=== PATIENT | male | born 1980 | race Caucasian/White ===

== ENCOUNTER 2021-09-26 15:24 | Outpatient (CLI) | payer BC, SELFPAY ==
--- NOTE | 2021-09-26 15:35 | USCV_ITS ---
Elie Haas Age: 40 Gender: M : 1980 Exam Date: 09/26/2021 15:37 Ordering Phys: Fidel Tesfaye MD Technologist: OFELIA Exam Location: [facility] – [place] Indication: BILATERAL EDEMA HISTORY: Lower extremity edema. PROCEDURES: Venous duplex imaging was performed in bilateral lower extremities. The following venous structures were evaluated: common femoral vein, profunda vein, proximal portion of the greater saphenous vein, superficial femoral vein, and the popliteal vein. In addition, the posterior tibial and peroneal trunk were evaluated. FINDINGS: Normal 2-D Doppler and augmentation and compressibility throughout the lower extremity venous structures. Additional imaging through the proximal calf veins also reveals no thrombus. Limited evaluation of the greater saphenous vein is patent with no thrombus.. CONCLUSIONS No evidence of right lower extremity DVT. No evidence of left lower extremity DVT. Konstantin Villasenor MD (Electronically Signed) Final Date: 26 September 2021 17:01 S
== END 2021-09-26 15:25 | disposition home or self-care (01) ==
LOC: RAD 15:27
PROVIDERS: Visit Provider Family Medicine
DX: E88.09 Other disorders of plasma-protein metabolism, not elsewhere classified (principal); E05.90 Thyrotoxicosis, unspecified without thyrotoxic crisis or storm; R60.0 Localized edema
CPT/HCPCS: 93970

== ENCOUNTER 2021-10-13 07:11 | Outpatient (CLI) | payer BC, SELFPAY ==
--- NOTE | 2021-10-13 07:17 | US_ITS ---
WS: [id number] ULTRASOUND ABDOMEN CLINICAL INFORMATION: HYPOALBUMINEMIA PLEASE INCLUDE BLADDER COMPARISON: None. FINDINGS: Liver Size: Enlarged Craniocaudal length: 17.4 cm. Echogenicity: Normal. Surface nodularity: None. Mass (size and location): None. Bile ducts Intrahepatic ducts: Normal. Common bile duct diameter: 0.4 cm. Gallbladder Contracted Gallstones: None. Gallbladder sludge: None. Gallbladder wall thickening: None. Pericholecystic fluid: None. Sonographic Becerra sign: Absent. Pancreas Normal as visualized. Right kidney: Normal. Hydronephrosis: None. Size: 11.8 cm x 5.5 cm x 5.8 cm Left kidney: Normal. Hydronephrosis: None. Size: 11.8 cm x 6.1 cm x 6.3 cm. Abdominal aorta and IVC Visualized portions are normal. Ascites: Present US/US abdomen complete* [id number] IMPRESSION: 1. Hepatomegaly. Trace perihepatic ascites 2. Gallbladder is contracted. 3. Normal common bile duct. 4. No hydronephrosis in either kidney. 5. Small volume pelvic ascites.
== END 2021-10-13 07:12 | disposition home or self-care (01) ==
LOC: RAD 07:12
PROVIDERS: PCP Family Medicine; Visit Provider Family Medicine
DX: E88.09 Other disorders of plasma-protein metabolism, not elsewhere classified (principal); E05.90 Thyrotoxicosis, unspecified without thyrotoxic crisis or storm; R60.0 Localized edema; R16.0 Hepatomegaly, not elsewhere classified
CPT/HCPCS: 76700

== ENCOUNTER 2022-02-15 15:41 | Outpatient (CLI) | payer BC, SELFPAY ==
--- NOTE | 2022-02-15 15:51 | XR_ITS ---
WS: [id number] XR chest 2V* [id number] REASON FOR EXAM: DYSPNEA, RIB PAIN RIGHT SIDED FINDINGS: Moderate tortuosity the thoracic aorta without aneurysmal dilatation. The heart size within normal limits. Extensive calcified granulomatous disease bilaterally. On the PA view there is a vaguely defined area of density in the periphery of the left midlung zone. This abnormality is difficult to identify in the lateral view but may be an area of density posterior to the hilar structures placing it within the upper portion of the left lower lobe. Mild to moderate scoliosis with moderate to severe degenerative spondylosis in the mid and lower thor acic spine. XR/XR chest 2V* [id number] IMPRESSION: Left lung mass as above. It would be appropriate to proceed to CT scan of the chest with intravenous con trast.
== END 2022-02-15 15:42 | disposition home or self-care (01) ==
PROVIDERS: PCP Family Medicine; Visit Provider Family Medicine
DX: R06.00 Dyspnea, unspecified (principal); R07.81 Pleurodynia; R91.8 Other nonspecific abnormal finding of lung field
CPT/HCPCS: 71046

== ENCOUNTER 2022-02-16 10:31 | Inpatient (IN) | payer BC, SELFPAY ==
[2022-02-16] VITALS (12 sets, daily range): BP systolic 107–114; BP diastolic 55–92; PULSE 81–108; RESP 14–36; TEMP 36.6; O2SAT 93–96; BMI 24.5
--- NOTE | 2022-02-16 10:46 | ECG_ITS ---
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 Measurements Intervals [place] Rate: 104 P: 50 CA: 127 QRS: -21 QRSD: 93 T: 34 QT: 318 QTc: 419 Interpretive Statements SINUS TACHYCARDIA LEFT ATRIAL ENLARGEMENT [-0.15mV P-WAVE IN V1/V2] BORDERLINE LEFT AXIS DEVIATION [QRS AXIS < -20] No previous ECG available for comparison Electronically Signed On 02-16-2022 22:41:48 CDT by Marco Antonio Salazar M.D. [id number]
--- NOTE | 2022-02-16 10:46 | XR_ITS ---
WS: [id number] XR chest 1V portable [id number] REASON FOR EXAM: chest pain FINDINGS: The patient is rotated to his left in comparison to the previous days examination and the area of the density previously seen in the periphery of the left lung appears somewhat less masslike. No other significant interval change is seen in the chest compared to the prior day. XR/XR chest 1V portable [id number] IMPRESSION: No interval change compared to the previous day. Density in the left chest stil l suspicious for neoplasm due to the focal nature. This would be an unusual pre sentation of a pneumonitis or pulmonary infarct. If inflammatory process is suspected follow-up chest in 7-8 days would be appro priate.
--- NOTE | 2022-02-16 11:01 | PC.PHAR ---
pts verified pts medications-pts states the pt hasnt started the augmentin 500-125mg yet rx filled 02/15/22 10d/s 1 tabs tid-pts states the lisinopril 10mg daily was dced rx filled 10/24/21 90d/s
[2022-02-16 11:16] LABS: Basophils # 0.1 10^3/uL (0.0-0.1); Basophils % 0.7 %; Eosinophils # 0.4 10^3/uL (0.0-0.8); Eosinophils % 3.4 %; Hematocrit 42.6 % (42.0-52.0); Hemoglobin 14.1 g/dL (11.7-16.6); Lymphocytes # 1.6 10^3/uL (0.8-4.8); Lymphocytes % 15.4 %; Mean Corpuscular HGB Conc 33.1 g/dL (30.0-36.0); Mean Corpuscular Hemoglobin 32.1 pg (28.0-34.0); Mean Platelet Volume 9.4 fL (7.4-10.4); Monocytes % 10.1 %; Neutrophils # 7.15 10^3/uL (1.8-7.7); Neutrophils % 69.8 %; Nucleated Red Blood Cells % 0 %; Platelet Count 314 10^3/cmm (130-400); Red Blood Count 4.39 10^6/uL (4.1-5.3); White Blood Count 10.2 10^3/uL (4.0-10.0)
[2022-02-16 11:46] LABS: Alanine Aminotransferase 8 U/L (0-41); Alkaline Phosphatase 79 IU/L (40-130); Anion Gap 13.4 (5-19); Aspartate Amino Transferase 18 U/L (0-40); Blood Urea Nitrogen 10 mg/dL (6-20); Calcium 8.2 mg/dL (8.5-10.5); Carbon Dioxide 24 mmol/L (22-29); Chloride 97 mmol/L (98-107); Creatinine Clr Calc Pharmacy 148.4115; Glomerular Filtration Rate 123.1 mL/min (90-130); Glucose 94 mg/dL (65-115); Osmolality Calculated 269 mOsm/kg (285-295); Potassium 4.4 mmol/L (3.5-5.1); Sodium 130 mmol/L (136-145); Total Bilirubin 0.2 mg/dL (0.15-1.2)
[2022-02-16 12:07] LABS: Troponin(5th) Baseline 8 ng/L (0-15)
--- NOTE | 2022-02-16 12:13 | ED_ITS ---
HPI - Chest Pain General: Chief Complaint: Chest Pain Stated Complaint: chest pain/SOB Time Seen by Provider: 02/16/22 10:46 Source: patient Mode of arrival: ambulatory Limitations: no limitations History of Present Illness: 41-year-old male presents emergency room complaining of right-sided chest pain. This began 5 days ago on the left side of the chest and migrated over to the right side of the chest it stays in that position now is worse when he takes a deep breath. Also worse with palpation an d change in position patient was repositioned to examine the abdomen but laying him flat he noticed worsening of the chest discomfort. He has not had any Fever or productive cough with that he does feel short of breath at times. No hemoptysis. He has had a little bit of loose stool recently. Denies any hematemesis coffee-ground emesis. MD complaint: chest pain Onset (ago): minute(s) Timing of current episode: constant Associated symptoms: Reports dyspnea; Deny abdominal pain, fever(s), nausea or vomiting Review of Systems Const: Denies: fever(s), chills, body aches, change in appetite, fatigue or malaise ENMT: Denies: throat pain, ear or mastoid pain, nasal discharge or nasal congestion Card: Reports: chest pain; Denies: edema, dyspnea on exertion or orthopnea Resp: Reports: dyspnea; Denies: productive cough or non-productive cough GI: Denies: abdominal pain, nausea, vomiting, hematemesis, coffee ground emesis, diarrhea, constipation, bloating, hematochezia or melena : Denies: flank pain, dysuria, urinary frequency or urinary urgency Skin/Breast: Denies: rash or pruritus PFSH ED PFSH: Medical History (Updated 02/16/22 @ 17:53 by Franky Salazar DO) Chronic kidney disease Hypertension Hyperthyroidism Social History (Updated 02/16/22 @ 17:52 by Franky Salazar DO) Smoking and tobacco status: never smoked Alcohol intake: never Physical Exam Const: COMMON NORMALS: no acute distress GENERAL APPEARANCE: cooperative and comfortable ORIENTATION/CONSCIOUSNESS: Yes awake, Yes oriented to person, Yes oriented to place and Yes oriented to time HENMT: COMMON NORMALS: normocephalic, atraumatic and hearing grossly normal bilaterally HEAD & SCALP: normocephalic and atraumatic Neck/C-Spine: COMMON NORMALS: no JVD Resp: COMMON NORMALS: normal respiratory effort, No retractions, No use of accessory muscles and clear to auscultation bilaterally AUSCULTATION: clear to auscultation bilaterally Cardio: COMMON NORMALS: no JVD, regular rate, regular rhythm and No murmurs present (Cardio) RATE: regular rate RHYTHM: regular rhythm GI: COMMON NORMALS: Soft to palpation and No hepatosplenomegaly present AUSCULTATION: Yes normoactive bowel sounds PALPATION: Yes Soft to palpation, No Tenderness to palpation present (GI), No Guarding due to palpation present (GI) and Yes No hepatosplenomegaly present Extremity: COMMON NORMALS: normal to inspection, capillary refill normal, no clubbing, cyanosis or edema, no calf tenderness and no pedal edema Neuro: SENSORIUM/ORIENTATION: Yes oriented to person, Yes oriented to place and Yes oriented to time Skin: COMMON NORMALS: no rashes or lesions noted GENERAL SKIN EXAM: no rashes or lesions noted Course Vital Signs: Vital signs: Vital Signs Temperature 98 F 02/16/22 10:41 Pulse Rate 98 02/16/22 17:36 Respiratory Rate 18 02/16/22 17:36 Blood Pressure 107/55 02/16/22 17:36 Pulse Oximetry 95 02/16/22 17:36 MDM - Chest Pain Medical Decision Making Large pulmonary emboli heavy burden of clot with right heart strain. Will admit started on heparin. Venous duplex lower extremities to evaluate for DVT. Medical Records I reviewed the patient's medical records. Lab Data I reviewed the patient's lab results. : 02/16/22 11:07 02/16/22 11:07 Radiology Impressions Chest X-Ray 02/16/22 10:46 IMPRESSION: No interval change compared to the previous day. Density in the left chest still suspicious for neoplasm due to the focal nature. This would be an unusual presentation of a pneumonitis or pulmonary infarct. If inflammatory process is suspected follow-up chest in 7-8 days would be appropriate. Chest CTA 02/16/22 12:33 IMPRESSION: 1. Extensive bilateral pulmonary embolus with evidence of RIGHT heart strain described above. 2. Wedge-shaped opacity LEFT upper lobe along the fissure suspicious for pulmonary infarct measuring 3.5 x 2.4 cm. This corresponds to the opacity seen on the prior radiograph. Recommend interval follow-up to ensure resolution. 3. Patchy atelectasis in the RIGHT middle lobe. 4. Normal caliber thoracic aorta. Notified Franky Salazar DO at 02/16/2022 1:35 PM. Laboratory Results WBC 10.2 10^3/uL (4.0-10.0) H 02/16/22 11:07 RBC 4.39 10^6/uL (4.1-5.3) 02/16/22 11:07 Hgb 14.1 g/dL (11.7-16.6) 02/16/22 11:07 Hct 42.6 % (42.0-52.0) 02/16/22 11:07 MCV 97.0 fl (80-94) H 02/16/22 11:07 MCH 32.1 pg (28.0-34.0) 02/16/22 11:07 MCHC 33.1 g/dL (30.0-36.0) 02/16/22 11:07 RDW 12.0 % (12.1-15.1) L 02/16/22 11:07 Plt Count 314 10^3/cmm (130-400) 02/16/22 11:07 MPV 9.4 fL (7.4-10.4) 02/16/22 11:07 Neut % (Auto) 69.8 % 02/16/22 11:07 Lymph % (Auto) 15.4 % 02/16/22 11:07 [place] % (Auto) 10.1 % 02/16/22 11:07 Eos % (Auto) 3.4 % 02/16/22 11:07 Baso % (Auto) 0.7 % 02/16/22 11:07 Neut # (Auto) 7.15 10^3/uL (1.8-7.7) 02/16/22 11:07 Lymph # (Auto) 1.6 10^3/uL (0.8-4.8) 02/16/22 11:07 [place] # (Auto) 1.0 10^3/uL (0.2-0.9) H 02/16/22 11:07 Eos # (Auto) 0.4 10^3/uL (0.0-0.8) 02/16/22 11:07 Baso # (Auto) 0.1 10^3/uL (0.0-0.1) 02/16/22 11:07 Nucleated RBC % (auto) 0 % 02/16/22 11:07 Nucleated RBCs # 0.0 /100WBC 02/16/22 11:07 Sodium 130 mmol/L (136-145) L 02/16/22 11:07 Potassium 4.4 mmol/L (3.5-5.1) 02/16/22 11:07 Chloride 97 mmol/L (98-107) L 02/16/22 11:07 Carbon Dioxide 24 mmol/L (22-29) 02/16/22 11:07 Anion Gap 13.4 (5-19) 02/16/22 11:07 BUN 10 mg/dL (6-20) 02/16/22 11:07 Creatinine 0.7 mg/dL (0.7-1.2) 02/16/22 11:07 GFR Calculation 123.1 mL/min (90-130) 02/16/22 11:07 Glucose 94 mg/dL (65-115) 02/16/22 11:07 Calculated Osmolality 269 mOsm/kg (285-295) L 02/16/22 11:07 Calcium 8.2 mg/dL (8.5-10.5) L 02/16/22 11:07 Total Bilirubin 0.2 mg/dL (0.15-1.2) 02/16/22 11:07 AST 18 U/L (0-40) 02/16/22 11:07 ALT 8 U/L (0-41) 02/16/22 11:07 Alkaline Phosphatase 79 IU/L (40-130) 02/16/22 11:07 Troponin T Baseline 8 ng/L (0-15) 02/16/22 11:07 Troponin T 120 Minute 6.24 ng/L (0-15) 02/16/22 13:31 Delta Troponin T -1.76 ABS# (0-10) L 02/16/22 13:31 Total Protein 5.0 g/dL (6.6-8.7) L 02/16/22 11:07 Albumin 2.0 g/dL (3.5-5.2) L 02/16/22 11:07 Globulin 3.0 g/dL (1.3-4.6) 02/16/22 11:07 Discharge Plan Discharge Patient Disposition: Admitted As Inpatient Admit Provider: Terry Alcantar Clinical Impression: Pulmonary emboli, Hyperthyroidism Condition: Stable Coding Level of Care Code ED 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
--- NOTE | 2022-02-16 12:33 | CT_ITS ---
WS: [id number] CTA OF THE CHEST WITH PULMONARY EMBOLISM PROTOCOL TECHNIQUE: High-resolution contrast enhanced CTA of the chest with coronal and sagittal reformatted i mages with pulmonary embolism protocol. MIP images are also reviewed. CLINICAL INFORMATION: Chest pain dyspnea tachycardia COMPARISON: None. DLP: 1110.[address] scans at [facility] use at least one of these dose optimization techniques: automated e xposure control; mA and/or kV adjustment per patient size (includes targeted exams where dose is matc hed to clinical indication); or iterative reconstruction. FINDINGS: Proximal main pulmonary arteries are normal. Extensive bilateral pulmonary embolus in the distal main pulmonary arteries extending into the segmental and subsegmental pulmonary arteries bilaterally. Red uced blood flow in the segmental and subsegmental pulmonary arteries bilaterally. Slight reflux into the hepatic veins with mild LEFT ventricular septal bowing consistent with RIGHT heart strain. Wedge- shaped opacity in the LEFT upper lobe along the fissure suspicious for pulmonary infarct. Subsegmental atelectasis in RIGHT middle lobe. Normal caliber thoracic aorta. No mediastinal or hilar lymphadenopathy. Adrenal glands are normal. Small esophageal hiatal hernia. Moderate thoracic kyphos is. Chronic anterior wedging mid thoracic spine with a few Schmorl's nodes. CT/CT angio chest PE protcl [id number] IMPRESSION: 1. Extensive bilateral pulmonary embolus with evidence of RIGHT heart strain d escribed above. 2. Wedge-shaped opacity LEFT upper lobe along the fissure suspicious for pulmo nary infarct measuring 3.5 x 2.4 cm. This corresponds to the opacity seen on th e prior radiograph. Recommend interval follow-up to ensure resolution. 3. Patchy atelectasis in the RIGHT middle lobe. 4. Normal caliber thoracic aorta. Notified Franky Salazar DO at 02/16/2022 1:35 PM.
--- NOTE | 2022-02-16 12:46 | ECG_ITS ---
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 Measurements Intervals [place] Rate: 79 P: 30 MD: 132 QRS: -11 QRSD: 86 T: 29 QT: 356 QTc: 410 Interpretive Statements SINUS RHYTHM POSSIBLE LEFT ATRIAL ENLARGEMENT [-0.1mV P-WAVE IN V1/V2] No previous ECG available for comparison Electronically Signed On 02-16-2022 16:06:04 CDT by Marco Antonio Salazar M.D. [id number]
[2022-02-16] MEDS: iohexol 350 mg/mL 100 mL Btl IV (13:23)
[2022-02-16 13:56] LABS: Troponin 5 2HR 6.24 ng/L (0-15)
--- NOTE | 2022-02-16 14:10 | USCV_ITS ---
Elie Haas Age: 41 Gender: M : 1980 Exam Date: 02/16/2022 14:41 Ordering Phys: Franky Salazar DO Technologist: OFELIA Exam Location: [facility] [place] Indication: PE LE Swelling HISTORY: Lower extremity swelling. Pt has renal disease causing blood to become very viscous per pt and . Pulmonary embolism. PROCEDURES: Venous duplex imaging was performed in bilateral lower extremities. The following venous structures were evaluated: common femoral vein, profunda vein, proximal portion of the greater saphenous vein, superficial femoral vein, and the popliteal vein. In addition, the posterior tibial and peroneal trunk were evaluated. FINDINGS: Very slow flow visualized. Normal 2-D Doppler and augmentation and compressibility throughout the lower extremity venous structures. Additional imaging through the proximal calf veins also reveals no thrombus. Limited evaluation of the greater saphenous vein is patent with no thrombus. CONCLUSIONS No DVT bilateral lower extremities. Dr. Florence Mcdaniel DO (Electronically Signed) Final Date: 16 February 2022 15:48 S
[2022-02-16 14:41] LABS: Troponin 5 2HR Delta -1.76 ABS# (0-10)
[2022-02-16] MEDS: morphine 4 mg/mL SDV 1 mL IM (15:38)
--- NOTE | 2022-02-16 15:56 | P.HP_ITS ---
Providers/Chief Complaint Primary Care Provider: Fidel Tesfaye MD Chief Complaint: chest pain/SOB History of Present Illness Elie Haas is a 41 year old male with past medical history of GN, currently no records available, see Dr. Khan as an outpatient, is on spironolactone and olmesartan, he also has past medical history of hyperthyroidism, was brought in with chief complaint of chest pain particularly with inspiration, located on the right side, started about 5 days back, and has progressively worsened since then, x-ray chest was done in the ER yesterday as outpatient: Which reports as following : on the PA view there is a vaguely defined area of density in the periphery of the left midlung zone.This abnormality is difficult to identify in the lateral view but may be an area of density posterior to the hilar structures placing it within the upper portion of the left lower lobe. It was suggestive of left lung mass. He came in today because his chest pain had progressively worsened. CTA chest done in the ER: Today showed : Extensive bilateral pulmonary embolus with evidence of RIGHT heart strain described above. Wedge-shaped opacity LEFT upper lobe along the fissure suspicious for pulmonary infarct measuring 3.5 x 2.4 cm. This corresponds to the opacity seen on the prior radiograph. Recommend interval follow-up to ensure resolution. Lower extremity Doppler vein: Is negative for DVT. Patient was started on heparin drip in the ER. As well as he received morphine for pain control. Pertinent labs: WBC : 10.2 , H&H:14/42 , PLT : 314 , serum sodium 137 potassium 4.4 BUN/ serum creatinine 10/0.7 , serum albumin 2 Troponin trend: 8,6, Review of Systems General: Reports: 10 or more systems reviewed and unremarkable except in HPI and below Const: Denies: fever(s), chills, body aches, change in appetite or diaphoresis Card: Reports: edema, swelling of feet/ankles, dyspnea on exertion and orthopnea; Denies: palpitations or leg pain with exertion Resp: Reports: dyspnea and pain on inspiration; Denies: productive cough or wheezing GI: Denies: abdominal pain, nausea, vomiting, diarrhea or constipation : Denies: flank pain or difficulty urinating Musc: Denies: back pain, extremity pain or extremity swelling Neuro: Denies: headache(s), difficulty walking or confusion Medications/Allergies Home Medications Medication Instructions Recorded Confirmed Last Taken Type amoxicillin 500 mg-potassium 1 tab PO TID 02/16/22 02/16/22 Unknown History clavulanate 125 mg tablet (Augmentin) atenolol 100 mg tablet 100 mg PO DAILY@02/16/22 02/16/22 02/15/22 History hydrocodone 5 mg-acetaminophen 325 1 tab PO Q4H PRN 02/16/22 02/16/22 02/16/22 09:00 History mg tablet methimazole 5 mg tablet 5 mg PO DAILY@02/16/22 02/16/22 02/15/22 History olmesartan 20 mg tablet 20 mg PO DAILY 02/16/22 02/16/22 02/16/22 09:00 History spironolactone 25 mg tablet 25 mg PO QAM 02/16/22 02/16/22 02/16/22 09:00 History Allergies Allergy/AdvReac Type Severity Reaction Status Date / Time No Known Allergies Allergy Verified 02/16/22 11:01 Vitals/I&O/Wt Last Vital Signs Temp 98 F 02/16/22 10:41 Pulse 108 H 02/16/22 10:41 Resp 18 02/16/22 15:38 BP 114/73 02/16/22 10:41 Pulse Ox 95 02/16/22 10:41 Weight last 48 hrs Weight 79.832 kg Physical Exam Const: COMMON NORMALS: patient oriented x3 HENMT: COMMON NORMALS: normocephalic and atraumatic HEAD & SCALP: nor mocephalic and atraumatic EXTERNAL EAR: Yes external ears normal Eye: GENERAL EYE: appearance normal, both eyes and all related structures Chest: CHEST: Yes Symmetrical chest wall rise Resp: COMMON NORMALS: No use of accessory muscles and clear to auscultation bilaterally EFFORT & INSPECTION: Yes symmetric chest movement AUSCULTATION: clear to auscultation bilaterally Cardio: COMMON NORMALS: regular rate, regular rhythm, S1 normal heart sound present, S2 normal heart sound present, No gallops present (Cardio), No murmurs present (Cardio), No rub (Cardio) and Peripheral pulses 2+ throughout RATE: regular rate RHYTHM: regular rhythm HEART SOUNDS: S1 normal heart sound present and S2 normal heart sound present PERIPHERAL PULSES: Peripheral pulses 2+ throughout GI: COMMON NORMALS: Normal to inspection, nondistended, normoactive bowel sounds present, Soft to palpation, non-tender, No hepatosplenomegaly present and no masses AUSCULTATION: Yes normoactive bowel sounds PALPATION: Yes Soft to palpation and Yes No hepatosplenomegaly present RECTAL EXAM: Yes deferred Extremity: COMMON NORMALS: no clubbing, cyanosis or edema and no pedal edema Neuro: COMMON NORMALS: patient oriented x3 Data : 02/16/22 11:07 02/16/22 11:07 A&P Assessment and plan (1) Pulmonary emboli: Status: Acute (2) Hyperthyroidism: Status: Acute Plan 41 year old male with past medical history of GN, currently no records available, see Dr. Khan as an outpatient, is on spironolactone and olmesartan, he also has past medical history of hyperthyroidism, was brought in with chief complaint of chest pain particularly with inspiration, located on the right side, started about 5 days back. Assessment: Acute pulmonary embolism: CTA chest done in the ER: Today showed : Extensive bilateral pulmonary embolus with evidence of RIGHT heart strain described above. Wedge-shaped opacity LEFT upper lobe along the fissure suspicious for pulmonary infarct measuring 3.5 x 2.4 cm. This corresponds to the opacity seen on the prior radiograph. Recommend interval follow-up to ensure resolution. Lower extremity Doppler vein: Is negative for DVT. 2D echo: Currently on heparin drip We will switch him to p.o. Eliquis or Xarelto on Given his underlying kidney disease he is at high risk for future thrombosis. Patient will need long-term anticoagulation At baseline he is extremely active person. Hyperthyroidism : Continue methimazole Hypovolemic hyponatremia: Continue normal saline at 75 cc Monitor BMP DVT prophylaxis: Not needed on heparin drip CODE STATUS: Full code Attestations Medical Necessity Statement*: Patient needs to be in the hospital for management of acute pulmonary embolism. Anticipated length of stay greater than 2 midnights Time Spent in Patient Care: Greater than 35 minutes (>than 50% of time spent in counselling and/or direct pt care on unit) . Coding Level of Care Code Acute Sole Cementer for [facility] Fwd Exam Comprehensive Diagnoses Pulmonary emboli I26.99 Hyperthyroidism E05.90
[2022-02-16] MEDS: sodium chloride 0.9% 1,000 ML 100 ML IV ×2 (16:26→20:02)
[2022-02-16] MEDS: heparin drip 25,000 UNIT/500 ML PREMIX 22.35 UNIT IV (16:30)
[2022-02-16] MEDS: heparin 5,000 unit/mL INJ 1 mL IV (16:32)
--- NOTE | 2022-02-16 16:46 | ECG_ITS ---
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 Measurements Intervals [place] Rate: 97 P: 60 DE: 119 QRS: -3 QRSD: 99 T: 39 QT: 325 QTc: 413 Interpretive Statements SINUS RHYTHM WITH SHORT DE INTERVAL POSSIBLE LEFT ATRIAL ENLARGEMENT [-0.1mV P-WAVE IN V1/V2] Compared to ECG 02/16/2022 12:46:20 Short DE interval now present Electronically Signed On 02-16-2022 22:44:42 CDT by Marco Antonio Salazar M.D. [id number]
[2022-02-16] MEDS: morphine 4 mg/mL SDV 1 mL IVP ×2 (17:15→20:05)
[2022-02-16 17:18] LABS: Troponin 5 6HR 6.08 ng/L (0-15)
[2022-02-16 17:42] LABS: Troponin 5 6HR Delta -1.92 ng/L (0-12)
[2022-02-16] MEDS: oxyCODONE-APAP 5-325 mg Tablet 1 TAB PO (17:55)
[2022-02-16] MEDS: docusate sodium 100 mg Capsule PO (17:56)
[2022-02-16] MEDS: methIMAzole 5 MG Tablet PO (20:01)
[2022-02-16] MEDS: acetaminophen 325 mg Tablet 650 MG PO (20:30)
[2022-02-16] MEDS: lidocaine 5% Patch 1 PATCH TOPICAL (20:30)
[2022-02-16] MEDS: HYDROmorphone 1 mg/mL INJ 1 mL 2 MG IVP (21:58)
[2022-02-16 23:21] LABS: Partial Thromboplastin Time 67.1 SECONDS (23.9-36.7)
[2022-02-17] VITALS (17 sets, daily range): BP systolic 115–139; BP diastolic 58–80; PULSE 76–103; RESP 15–28; TEMP 36.7–36.8; O2SAT 90–97
--- NOTE | 2022-02-17 02:30 | USCV_ITS ---
Elie Haas Age: 41 Gender: M : 1980 Exam Date: 02/17/2022 07:05 Ordering Phys: Franky Salazar DO Technologist: Alfredo Atwood Exam Location: [facility] Indication: rt heart strain with large PE BP: 111 / 58 HR: 85 Rhythm: Sinus Technical Quality: MEASUREMENTS (Male / Female) Normal Values 2D ECHO LV Diastolic Diameter PLAX 5.4 cm 4.2 - 5.9 / 3.9 - 5.3 cm LV Systolic Diameter PLAX 3.4 cm IVS Diastolic Thickness 0.9 cm 0.6 - 1.0 / 0.6 - 0.9 cm IVS Systolic Thickness 1.0 cm LVPW Diastolic Thickness 0.8 cm 0.6 - 1.0 / 0.6 - 0.9 cm LVPW Systolic Thickness 1.1 cm LVOT Diameter 2.0 cm LV Ejection Fraction 2D Teich 66.2 % LV Ejection Fraction MOD 2C 67.5 % LV Ejection Fraction 2C AL 69.7 % LA Diameter 3.5 cm LA Width 4.0 cm LA Height 4.7 cm RA Width 3.9 cm RA Height 4.6 cm Aorta at Sinotubular Diameter 2.4 cm M-MODE Aortic Annulus Diameter 2.7 cm LA Ao Ratio MM 1.4 MV E Point Septal Separation 0.5 cm DOPPLER AV Peak Velocity 201.0 cm/s LVOT Peak Velocity 140.0 cm/s AV Area Cont Eq vti 2.1 cm squared AV Area Cont Eq pk 2.2 cm squared MV Area PHT 4.6 cm squared Mitral E to A Ratio 1.4 MV E' Velocity 60.5 cm/s Mitral E to MV E' Ratio 5.2 Mitral E to LV E' Lateral Ratio 5.0 Mitral E to LV E' Septal Ratio 5.4 TR Peak Velocity 352.9 cm/s TR Peak Gradient 49.8 mmHg TR Mean Velocity 271.3 cm/s TR Mean Gradient 31.7 mmHg TR Velocity Time Integral 96.4 cm Right Atrial Pressure 10.0 mmHg Pulmonary Artery Systolic Pressu 59.8 mmHg FINDINGS Left Ventricle Normal left ventricular size and systolic function, EF 66 %. No regional wall motion abnormalities. Right Ventricle Normal right ventricular size and systolic function. Right Atrium The right atrium is normal in size. Left Atrium The left atrium is normal in size. Mitral Valve Thickened mitral valve. Trace mitral valve regurgitation. Aortic Valve Trace aortic valve regurgitation. Thickened aortic valve. Tricuspid Valve Trace to mild tricuspid valve regurgitation. Moderate pulmonary hypertension with an estimated pulmonary artery peak systolic pressure of 60 millimeters of mercury Pulmonic Valve Trace pulmonary valve regurgitation. Pericardium Normal pericardium without effusion. Aorta Normal ascending aorta dimension. CONCLUSIONS Normal left ventricular size and systolic function, EF 66 %. No regional wall motion abnormalities. Normal right ventricular size and systolic function. Trace to mild tricuspid valve regurgitation. Moderate pulmonary hypertension with an estimated pulmonary artery peak systolic pressure of 60 millimeters of mercury. Thickened mitral valve. Trace mitral valve regurgitation. Trace aortic valve regurgitation. Thickened aortic valve. Elevated velocity across aortic valve, could be from the hyperdynamic ventricle. Cannot exclude a bicuspid aortic valve. Trace pulmonary valve regurgitation. There is no pericardial effusion. There are no intracardiac masses. No previous study is available for comparison. Dr Makayla Flores MD [facility] (Electronically Signed) Final Date: 17 February 2022 08:27 S
[2022-02-17] MEDS: HYDROmorphone 1 mg/mL INJ 1 mL 2 MG IVP ×4 (02:49→22:17)
[2022-02-17 02:55] LABS: Blood Urine 3+ (Negative); Glucose Urine UA Norm (Normal); Ketones Urine 1+ (Negative); Protein Urine 3+ (Negative); Urine Color Yellow (Yellow); pH Urine 5 (5-7)
[2022-02-17 02:56] LABS: Add Urine Microscopic? YES; Bilirubin Urine Neg (Negative); Leukocyte Esterase Urine Negative (Negative); Nitrate Urine Negative (Negative); Urobilinogen Urine Norm (Negative)
[2022-02-17 02:59] LABS: Bacteria Urine 1+ /hpf; Squamous Epithelial Cell Urine 0-4 /hpf (0-5)
[2022-02-17 03:00] LABS: Add Urine Culture? Yes; Amorphous Sediment Urine 3+ /hpf
[2022-02-17 05:17] LABS: Basophils # 0.1 10^3/uL (0.0-0.1); Basophils % 0.5 %; Eosinophils # 0.4 10^3/uL (0.0-0.8); Eosinophils % 3.8 %; Hematocrit 37.4 % (42.0-52.0); Hemoglobin 12.2 g/dL (11.7-16.6); Lymphocytes # 2.3 10^3/uL (0.8-4.8); Lymphocytes % 24.6 %; Mean Corpuscular HGB Conc 32.6 g/dL (30.0-36.0); Mean Corpuscular Hemoglobin 33.2 pg (28.0-34.0); Mean Corpuscular Volume 101.6 fl (80-94); Mean Platelet Volume 9.5 fL (7.4-10.4); Monocytes # 1.1 10^3/uL (0.2-0.9); Monocytes % 11.1 %; Neutrophils # 5.66 10^3/uL (1.8-7.7); Neutrophils % 59.6 %; Nucleated Red Blood Cells % 0 %; Platelet Count 288 10^3/cmm (130-400); Red Blood Count 3.68 10^6/uL (4.1-5.3); Red Cell Distribution Width 12.2 % (12.1-15.1); White Blood Count 9.5 10^3/uL (4.0-10.0)
--- NOTE | 2022-02-17 05:28 | PC.NURSE ---
Around 2144, Dr. Manzo in room to see patient and address patient's complaint of chest pain. See orders/mar.
[2022-02-17 05:39] LABS: Anion Gap 11.4 (5-19); Blood Urea Nitrogen 15 mg/dL (6-20); Calcium 8.3 mg/dL (8.5-10.5); Carbon Dioxide 25 mmol/L (22-29); Chloride 100 mmol/L (98-107); Glomerular Filtration Rate 105.5 mL/min (90-130); Glucose 82 mg/dL (65-115); Osmolality Calculated 274 mOsm/kg (285-295); Potassium 4.4 mmol/L (3.5-5.1); Sodium 132 mmol/L (136-145)
[2022-02-17 06:11] LABS: Partial Thromboplastin Time 63.9 SECONDS (23.9-36.7)
--- NOTE | 2022-02-17 08:37 | P.PN_ITS ---
Subjective Subjective: Patient has continued to complain of significant chest pain, overnight he had to be started on Dilaudid, in addition to Percocet and morphine, that helped him to sleep better, has slowly started working with incentive spirometer. Medications: Medication Review Details: Generic Name Dose Route Start Last Admin Trade Name José PRN Reason Stop Dose Admin Acetaminophen 650 mg 02/16/22 15:50 02/16/22 20:30 Acetaminophen 32 5 Mg Tablet PO 650 mg Q6H PRN Administration Mild/Mod Pain Or Temp >/= 101 Docusate Sodium 100 mg 02/16/22 18:00 02/16/22 17:56 Docusate Sodium 100 Mg Capsule PO 100 mg BID ANNA Administration Heparin Sodium (Po rcine) 0 unit 02/16/22 13:29 02/16/22 16:32 Heparin 5,000 Un it/Ml Inj 1 Ml IV 4,000 unit PRN PRN Administration Heparin weight-ba se protocol Protocol Hydromorphone HCl 2 mg 02/16/22 21:50 02/17/22 02:49 Hydromorphone 1 Mg/Ml Inj 1 Ml IVP 2 mg Q4H PRN Administration SEVERE PAIN Sodium Chloride 1,000 mls @ 100 m ls/hr 02/16/22 16:00 02/16/22 20:02 Sodium Chloride 0.9% IV 100 mls/hr .Q10H ANNA Administration Lidocaine 1 patch 02/16/22 21:00 02/16/22 20:30 Lidocaine 5% Pat ch TOPICAL 1 patch [id number] ANNA Administration Methimazole 5 mg 02/16/22 19:00 02/16/22 20:01 Methimazole 5 Mg Tablet PO 5 mg DAILY@19 ANNA Administration Oxycodone/Acetamin ophen 1 tab 02/16/22 15:50 02/16/22 17:55 Oxycodone-Apap 5 -325 Mg Tablet PO 1 tab Q4H PRN Administration SEVERE PAIN Vitals/I&O/Wt Last Vital Signs Temp 98.0 F 02/17/22 08:06 Pulse 89 02/17/22 08:07 Resp 18 02/17/22 08:07 BP 139/80 02/17/22 08:06 Pulse Ox 97 02/17/22 08:07 02/16/22 02/17/22 02/17/22 22:59 06:59 14:59 Intake Total 600 / 600 Output Total 300 / 300 750 / 750 Balance 600 / 600 -300 / 300 -750 / -750 Weight last 48 hrs Weight 79.832 kg Physical Exam Const: COMMON NORMALS: patient oriented x3 HENMT: COMMON NORMALS: normocephalic, atraumatic and external ears normal HEAD & SCALP: normocephalic and atraumatic EXTERNAL EAR: Yes external ears normal Eye: GENERAL EYE: appearance normal, both eyes and all related structures Chest: CHEST: Yes Symmetrical chest wall rise Resp: COMMON NORMALS: No use of accessory muscles and clear to auscultation bilaterally EFFORT & INSPECTION: Yes symmetric chest movement AUSCULTATION: clear to auscultation bilaterally Cardio: COMMON NORMALS: regular rate, regular rhythm, S1 normal heart sound present, S2 normal heart sound present, No gallops present (Cardio), No murmurs present (Cardio), No rub (Cardio) and Peripheral pulses 2+ throughout RATE: regular rate RHYTHM: regular rhythm HEART SOUNDS: S1 normal heart sound present and S2 normal heart sound present PERIPHERAL PULSES: Peripheral pulses 2+ throughout GI: COMMON NORMALS: Normal to inspection, nondistended, normoactive bowel sounds present, Soft to palpation, non-tender, No hepatosplenomegaly present and no masses AUSCULTATION: Yes normoactive bowel sounds PALPATION: Yes Soft to palpation and Yes No hepatosplenomegaly present RECTAL EXAM: Yes deferred Extremity: COMMON NORMALS: no clubbing, cyanosis or edema and no pedal edema Neuro: COMMON NORMALS: patient oriented x3 Data : 02/17/22 05:05 02/17/22 05:05 A&P Assessment and plan (1) Pulmonary emboli: Status: Acute (2) Hyperthyroidism: Status: Acute Plan 41 year old male with past medical history of GN, currently no records available, see Dr. Khan as an outpatient, is on spironolactone and olmesartan, he also has past medical history of hyperthyroidism, was brought in with chief complaint of chest pain particularly with inspiration, located on the right side, started about 5 days back. Assessment: Acute pulmonary embolism: X-ray chest:On the PA view there is a vaguely defined area of density in the periphery of the left midlung zone. This abnormality is difficult to identify in the lateral view but may be an area of density posterior to the hilar structures placing it within the upper portion of the left lower lobe. Suspicious for left lung mass. CTA chest done in the ER: Today showed : Extensive bilateral pulmonary embolus with evidence of RIGHT heart strain described above. Wedge-shaped opacity LEFT upper lobe along the fissure suspicious for pulmonary infarct measuring 3.5 x 2.4 cm. This corresponds to the opacity seen on the prior radiograph. Recommend interval follow-up to ensure resolution. Lower extremity Doppler vein: Is negative for DVT. 2D echo: Normal LV size and systolic function with EF of 66% no RWMA, normal RV size and systolic function, moderate pulmonary hypertension, pulmonary artery systolic pressure,60. Was on heparin drip We will switched to Eliquis 10 mg po BID for 7 days and thereafter 5 mg po BID Given his underlying kidney disease he is at high risk for future thrombosis. Patient will need long-term anticoagulation At baseline he is extremely active person. Patient will need 6-minute walk test prior to discharge to assess oxygen requirement. Patient will also need repeat imaging studies in 4-6 weeks to ensure the resolution of the reported infarct and rule out any underlying possible malignancy. #Moderate pulmonary hypertension: Pulmonary follow as an outpatient further work-up Hyperthyroidism : Continue methimazole Hypovolemic hyponatremia: Continue normal saline at 100 cc/hr Monitor BMP DVT prophylaxis: Not needed on heparin drip CODE STATUS: Full code Attestations Medical Necessity Statement*: Patient is to the hospital for management of acute pulmonary evaluation, adequate pain control. Time Spent in Patient Care: Greater than 35 minutes (>than 50% of time spent in counselling and/or direct pt care on unit) . 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
[2022-02-17] MEDS: losartan 50 mg Tablet PO (08:43)
[2022-02-17] MEDS: apixaban 5 mg Tablet 10 MG PO ×2 (09:01→20:13)
[2022-02-17] MEDS: lidocaine 5% Patch 1 PATCH TOPICAL (09:01)
[2022-02-17] MEDS: sodium chloride 0.9% 1,000 ML 100 ML IV ×2 (13:55→22:18)
[2022-02-17] MEDS: methIMAzole 5 MG Tablet PO (18:23)
[2022-02-18 04:20] VITALS: PULSE 84
[2022-02-18 04:33] VITALS: BP 137/76; PULSE 77; RESP 22; TEMP 36.8; O2SAT 92
[2022-02-18 05:56] LABS: Basophils % 0.5 %; Eosinophils # 0.4 10^3/uL (0.0-0.8); Eosinophils % 4.7 %; Hematocrit 35.5 % (42.0-52.0); Hemoglobin 11.3 g/dL (11.7-16.6); Lymphocytes % 25.7 %; Mean Corpuscular HGB Conc 31.8 g/dL (30.0-36.0); Mean Corpuscular Hemoglobin 32.7 pg (28.0-34.0); Mean Corpuscular Volume 102.6 fl (80-94); Monocytes # 0.7 10^3/uL (0.2-0.9); Monocytes % 9.1 %; Neutrophils # 4.54 10^3/uL (1.8-7.7); Neutrophils % 59.6 %; Nucleated Red Blood Cells % 0 %; Platelet Count 321 10^3/cmm (130-400); Red Blood Count 3.46 10^6/uL (4.1-5.3); Red Cell Distribution Width 12.5 % (12.1-15.1); White Blood Count 7.6 10^3/uL (4.0-10.0)
[2022-02-18 06:21] LABS: Anion Gap 12.4 (5-19); Blood Urea Nitrogen 10 mg/dL (6-20); Calcium 7.8 mg/dL (8.5-10.5); Carbon Dioxide 25 mmol/L (22-29); Chloride 107 mmol/L (98-107); Glucose 118 mg/dL (65-115); Osmolality Calculated 290 mOsm/kg (285-295); Potassium 4.4 mmol/L (3.5-5.1); Sodium 140 mmol/L (136-145)
[2022-02-18 07:24] VITALS: PULSE 89; RESP 18; O2SAT 96
[2022-02-18 07:30] VITALS: RESP 19
[2022-02-18] MEDS: oxyCODONE-APAP 5-325 mg Tablet 1 TAB PO (07:30)
[2022-02-18] MEDS: sodium chloride 0.9% 1,000 ML 100 ML IV (07:36)
[2022-02-18 08:00] VITALS: BP 99/79; PULSE 81; RESP 22; TEMP 37.1
[2022-02-18] MEDS: apixaban 5 mg Tablet 10 MG PO (08:03)
[2022-02-18 09:37] VITALS: BP 99/74
--- NOTE | 2022-02-18 21:49 | P.DS_ITS ---
Discharge Providers Date of Admission: 02/16/22 15:51 Date of Discharge: February 18, 2022 Attending Provider at Admission: Terry Alcantar MD Attending Provider at Discharge: Terry Alcantar MD Primary Care Provider: Fidel Tesfaye MD Diagnoses at Discharge Discharge Diagnosis (1) Pulmonary emboli: Status: Acute (2) Hyperthyroidism: Status: Acute Reason for Visit Reason for Visit: chest pain/SOB Hospital Course Hospital Course Elie Haas is a 41 year old male with past medical history of GN, currently no records available, see Dr. Khan as an outpatient, is on spironolactone and olmesartan, he also has past medical history of hyperthyroidism, was brought in with chief complaint of chest pain particularly with inspiration, located on the right side, started about 5 days back, and has progressively worsened since then, x-ray chest was done in the ER yesterday as outpatient: Which reports as following : on the PA view there is a vaguely defined area of density in the periphery of the left midlung zone.This abnormality is difficult to identify in the lateral view but may be an area of density posterior to the hilar structures placing it within the upper portion of the left lower lobe. ?It was suggestive of left lung mass. He came in today because his chest pain had progressively worsened. CTA chest done in the ER: Today showed : Extensive bilateral pulmonary embolus with evidence of RIGHT heart strain described above. Wedge-shaped opacity LEFT upper lobe along the fissure suspicious for pulmonary infarct measuring 3.5 x 2.4 cm. This corresponds to the opacity seen on the prior radiograph. Recommend interval follow-up to ensure resolution. Lower extremity Doppler vein: Is negative for DVT. Patient was started on heparin drip in the ER. As well as he received morphine for pain control. Pertinent labs: WBC : 10.2 , H&H:14/42 , PLT : 314 , serum sodium 137 potassium 4.4 BUN/ serum creatinine 10/0.7 , serum albumin 2 Troponin trend: 8,6, Hospital Course : He was admitted for the management of Acute pulmonary embolism: Lower extremity Doppler vein: Is negative for DVT. 2D echo: Normal LV size and systolic function with EF of 66% no RWMA, normal RV size and systolic function, moderate pulmonary hypertension, pulmonary artery systolic pressure,60. Initially he was on heparin drip and was later switched to eliquis ,he will have to be on fpc Ac given his undrlying kidney disease,he has been educated regarding the side possible complication of anticoagulations.He will also do repeat CTA chest in 3 weeks to access the Wedge-shaped opacity LEFT upper lobe along the fissure suspicious for pulmonary infarct measuring 3.5 x 2.4 cm. This corresponds to the opacity seen on the prior radiograph. Recommend interval follow-up to ensure resolution.Adequate pain control was done during the hospital stay,he was discharged on hydrocodone-acetaaminophen as well as hydromorphone po for pain control.He overall responded well to above medical management and is being discharged in stable condition to home.He will continue to follow primary care physician as outpatient. Physical Exam Const: COMMON NORMALS: patient oriented x3 HENMT: COMMON NORMALS: normocephalic, atraumatic and external ears normal HEAD & SCALP: normocephalic and atraumatic EXTERNAL EAR: Yes external ears normal Eye: GENERAL EYE: appearance normal, both eyes and all related structures Chest: CHEST: Yes Symmetrical chest wall rise Resp: COMMON NORMALS: No use of accessory muscles and clear to auscultation bilaterally EFFORT & INSPECTION: Yes symmetric chest movement AUSCULTATION: clear to auscultation bilaterally Cardio: COMMON NORMALS: regular rate, regular rhythm, S1 normal heart sound present, S2 normal heart sound present, No gallops present (Cardio), No murmurs present (Cardio), No rub (Cardio) and Peripheral pulses 2+ throughout RATE: regular rate RHYTHM: regular rhythm HEART SOUNDS: S1 normal heart sound present and S2 normal heart sound present PERIPHERAL PULSES: Peripheral pulses 2+ throughout GI: COMMON NORMALS: Normal to inspection, nondistended, normoactive bowel sounds present, Soft to palpation, non-tender, No hepatosplenomegaly present and no masses AUSCULTATION: Yes normoactive bowel sounds PALPATION: Yes Soft to palpation and Yes No hepatosplenomegaly present RECTAL EXAM: Yes deferred Extremity: COMMON NORMALS: no clubbing, cyanosis or edema and no pedal edema Neuro: COMMON NORMALS: patient oriented x3 Discharge Data Studies Completed and Pending Completed Studies During Hospitalization Category Date Time Status CT angio chest PE protcl [id number] Stat Cat Scan 02/16/22 12:33 Completed XR chest 1V portable [id number] Stat Exams 02/16/22 10:46 Completed CV. echo complete* [id number] Routine Ultrasound 02/17/22 02:30 Completed US venous duplex lower extremity bilat [CV venous Ultrasound 02/16/22 14:10 [place] [id number]] Stat Pending at discharge Category Date Time Status Urine Culture Routine Lab 02/17/22 02:45 Results Radiology Impressions Chest X-Ray 02/16/22 10:46 IMPRESSION: No interval change compared to the previous day. Density in the left chest still suspicious for neoplasm due to the focal nature. This would be an unusual presentation of a pneumonitis or pulmonary infarct. If inflammatory process is suspected follow-up chest in 7-8 days would be appropriate. Chest CTA 02/16/22 12:33 IMPRESSION: 1. Extensive bilateral pulmonary embolus with evidence of RIGHT heart strain described above. 2. Wedge-shaped opacity LEFT upper lobe along the fissure suspicious for pulmonary infarct measuring 3.5 x 2.4 cm. This corresponds to the opacity seen on the prior radiograph. Recommend interval follow-up to ensure resolution. 3. Patchy atelectasis in the RIGHT middle lobe. 4. Normal caliber thoracic aorta. Notified Franky Salazar DO at 02/16/2022 1:35 PM. Laboratory Results WBC 7.6 10^3/uL (4.0-10.0) 02/18/22 04:40 RBC 3.46 10^6/uL (4.1-5.3) L 02/18/22 04:40 Hgb 11.3 g/dL (11.7-16.6) L 02/18/22 04:40 Hct 35.5 % (42.0-52.0) L 02/18/22 04:40 MCV 102.6 fl (80-94) H 02/18/22 04:40 MCH 32.7 pg (28.0-34.0) 02/18/22 04:40 MCHC 31.8 g/dL (30.0-36.0) 02/18/22 04:40 RDW 12.5 % (12.1-15.1) 02/18/22 04:40 Plt Count 321 10^3/cmm (130-400) 02/18/22 04:40 MPV 10.0 fL (7.4-10.4) 02/18/22 04:40 Neut % (Auto) 59.6 % 02/18/22 04:40 Lymph % (Auto) 25.7 % 02/18/22 04:40 Haralson % (Auto) 9.1 % 02/18/22 04:40 Eos % (Auto) 4.7 % 02/18/22 04:40 Baso % (Auto) 0.5 % 02/18/22 04:40 Neut # (Auto) 4.54 10^3/uL (1.8-7.7) 02/18/22 04:40 Lymph # (Auto) 2.0 10^3/uL (0.8-4.8) 02/18/22 04:40 Haralson # (Auto) 0.7 10^3/uL (0.2-0.9) 02/18/22 04:40 Eos # (Auto) 0.4 10^3/uL (0.0-0.8) 02/18/22 04:40 Baso # (Auto) 0.0 10^3/uL (0.0-0.1) 02/18/22 04:40 Nucleated RBC % (auto) 0 % 02/18/22 04:40 Nucleated RBCs # 0.0 /100WBC 02/18/22 04:40 APTT 63.9 SECONDS (23.9-36.7) H 02/17/22 05:50 Sodium 140 mmol/L (136-145) 02/18/22 04:40 Potassium 4.4 mmol/L (3.5-5.1) 02/18/22 04:40 Chloride 107 mmol/L (98-107) 02/18/22 04:40 Carbon Dioxide 25 mmol/L (22-29) 02/18/22 04:40 Anion Gap 12.4 (5-19) 02/18/22 04:40 BUN 10 mg/dL (6-20) 02/18/22 04:40 Creatinine 0.6 mg/dL (0.7-1.2) L 02/18/22 04:40 GFR Calculation 147.0 mL/min (90-130) H 02/18/22 04:40 Glucose 118 mg/dL (65-115) H 02/18/22 04:40 Calculated Osmolality 290 mOsm/kg (285-295) 02/18/22 04:40 Calcium 7.8 mg/dL (8.5-10.5) L 02/18/22 04:40 Total Bilirubin 0.2 mg/dL (0.15-1.2) 02/16/22 11:07 AST 18 U/L (0-40) 02/16/22 11:07 ALT 8 U/L (0-41) 02/16/22 11:07 Alkaline Phosphatase 79 IU/L (40-130) 02/16/22 11:07 Troponin T Baseline 8 ng/L (0-15) 02/16/22 11:07 Troponin T 120 Minute 6.24 ng/L (0-15) 02/16/22 13:31 Delta Troponin T -1.76 ABS# (0-10) L 02/16/22 13:31 Troponin T Hi Sens 6Hr 6.08 ng/L (0-15) 02/16/22 16:55 Troponin T Hi Sens 6Hr Delta -1.92 ng/L (0-12) L 02/16/22 16:55 Total Protein 5.0 g/dL (6.6-8.7) L 02/16/22 11:07 Albumin 2.0 g/dL (3.5-5.2) L 02/16/22 11:07 Globulin 3.0 g/dL (1.3-4.6) 02/16/22 11:07 Urine Color Yellow (Yellow) 02/17/22 02:45 Urine Appearance Sl cloudy (CLEAR) A 02/17/22 02:45 Urine pH 5 (5-7) 02/17/22 02:45 Ur Specific Coram 1.020 (1.005-1.030) 02/17/22 02:45 Urine Protein 3+ (Negative) H 02/17/22 02:45 Urine Glucose (UA) Norm (Normal) 02/17/22 02:45 Urine Ketones 1+ (Negative) H 02/17/22 02:45 Urine Blood 3+ (Negative) H 02/17/22 02:45 Urine Nitrate Negative (Negative) 02/17/22 02:45 Urine Bilirubin Neg (Negative) 02/17/22 02:45 Urine Urobilinogen Norm mg/dL (Negative) 02/17/22 02:45 Ur Leukocyte Esterase Negative (Negative) 02/17/22 02:45 Urine RBC 10-15 /hpf (0-2) H 02/17/22 02:45 Urine WBC 5-10 /hpf (0-5) H 02/17/22 02:45 Ur Squamous Epith Cells 0-4 /hpf (0-5) H 02/17/22 02:45 Amorphous Sediment 3+ /hpf 02/17/22 02:45 Urine Bacteria 1+ /hpf (NONE) H 02/17/22 02:45 Hyaline Casts 5-10 /lpf H 02/17/22 02:45 Vitals Last Vital Signs Temp 98.8 F 02/18/22 08:00 Pulse 81 02/18/22 08:00 Resp 22 H 02/18/22 08:00 BP 99/74 02/18/22 09:37 Pulse Ox 96 02/18/22 07:24 Discharge Plan Discharge Patient Disposition: Home Condition: Stable Prescriptions: New Eliquis DVT-PE Treat 30D Start 5 mg (74 tabs) tablets,dose pack 5 mg PO BID Qty: 74 6RF Rx Instructions: Take 10 mg po BID till 02/24 thereafter 5 mg po BID hydromorphone 2 mg tablet 2 mg PO Q6H PRN (Reason: pain) Qty: 14 0RF Continued atenolol 100 mg Tablet 100 mg PO DAILY@19 0RF hydrocodone-acetaminophen 5-325 mg tablet 1 tab PO Q4H PRN (Reason: Pain) 0RF spironolactone 25 mg tablet 25 mg PO QAM 0RF methimazole 5 mg tablet 5 mg PO DAILY@19 0RF olmesartan 20 mg tablet 20 mg PO DAILY 0RF Discontinued amoxicillin-pot clavulanate [Augmentin] 500-125 mg tablet 1 tab PO TID 0RF Rx Instructions: rx filled 02/15/22 10d/s pt not started yet Discharge Orders: Discharge Order (Routine); Ordered 02/18/22 Ordered By: Terry Alcantar Other Ambulatory Orders: CT angio chest [id number] (Routine) Timeframe: 3 Weeks Facility: [facility] - Location: Rad[facility] Ordered By: Terry Alcantar Referrals: Fidel Tesfaye MD [Primary Care Provider] - 7-10 days ([facility] will be calling to schedule a hospital followup to be seen in 7 to [address] Tesfaye. If you don't hear from them by Tucker afternoon, please give them a call. Thank you) Discharge Diet: Regular Discharge Activity: Resume usual activity Patient Instructions: Hydromorphone (By mouth) (Dilaudid, Exalgo), Apixaban (By mouth) (Eliquis), Pulmonary Embolism (DC), Opioid Safety Activity Restrictions/Additional Instructions: Centralized Scheduling Department will be calling you to schedule your outpatient CT. If you don't hear from them by Saturday, please give them a call at [phone]. Thank you Discharge Attestations Time Spent in Discharge Care*: greater than 30 min Specific Discharge Activities: educating patient, educating and/or supporting family/caregiver, discussing with pcp/other providers, discussing with director of casework/social workers/dc planners, documenting/other paperwork and evaluating patient/reviewing data Quality Metrics Clinical Quality Measures [ No reported AMI, CVA or VTE this stay] Coding Level of Care Code Acute Chg FW DC note Diagnoses Pulmonary emboli I26.99 Hyperthyroidism E05.90
== END 2022-02-18 10:59 | disposition home or self-care (01) | DRG 176 ==
LOC: ER 14:35 → CSU 16:18
PROVIDERS: Admitting Provider Internal Medicine; Emergency Provider Family Medicine; PCP Family Medicine; Visit Provider Internal Medicine
DX: I26.99 Other pulmonary embolism without acute cor pulmonale (principal); E87.1 Hypo-osmolality and hyponatremia; I12.9 Hypertensive chronic kidney disease with stage 1 through stage 4 chronic kidney disease, or unspecified chronic kidney disease; N18.9 Chronic kidney disease, unspecified; E05.90 Thyrotoxicosis, unspecified without thyrotoxic crisis or storm; Z79.891 Long term (current) use of opiate analgesic
CPT/HCPCS: 36415; 71045; 71275; 80048; 80053; 81001; 84484; 85025; 85730; 87086; 93005; 93306; 93970; 96365; 96366; 96375; 96376; 99285; J1170; J1644; J2270; J7030; Q9967

== ENCOUNTER 2022-05-07 20:03 | Emergency (ER) | payer BC, SELFPAY ==
--- NOTE | 2022-05-07 20:04 | ECG_ITS ---
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 Measurements Intervals Gurley Rate: 116 P: 39 OR: 120 QRS: -23 QRSD: 86 T: 44 QT: 303 QTc: 422 Interpretive Statements SINUS TACHYCARDIA LEFT ATRIAL ENLARGEMENT [-0.15mV P-WAVE IN V1/V2] BORDERLINE LEFT AXIS DEVIATION [QRS AXIS < -20] Compared to ECG 02/16/2022 17:02:25 Sinus rhythm no longer present Short OR interval no longer present Electronically Signed On 05-07-2022 23:26:08 CDT by Marco Antonio Salazar M.D. [id number]
--- NOTE | 2022-05-07 20:12 | XRR_ITS ---
PROCEDURE INFORMATION: Exam: XR Chest Exam date and time: 05/07/2022 8:21 PM Age: 41 years old Clinical indication: Angina; Additional info: Cp TECHNIQUE: Imaging protocol: Radiologic exam of the chest. Views: 1 view. COMPARISON: CR XR chest 1V portable [id number] 02/16/2022 10:58 AM FINDINGS: Lungs: Unchanged linear scarring in the lung bases and scattered calcified pulmonary granulomas.. No consolidation. Pleural spaces: Unremarkable. No pleural effusion. No pneumothorax. Heart/Mediastinum: Borderline cardiomegaly. Bones/joints: No acute abnormality. XR/XR chest 1V portable [id number] IMPRESSION: No acute findings.
--- NOTE | 2022-05-07 20:12 | CTR_ITS ---
PROCEDURE INFORMATION: Exam: CTA Chest With Contrast Exam date and time: 05/07/2022 8:34 PM Age: 41 years old Clinical indication: Shortness of breath; Chest pressure and on breathing; Patient HX: C/O RT sided chest and back pain with SOB. Recent history of pe. TECHNIQUE: Imaging protocol: Computed tomographic angiography of the chest with contrast. 3D rendering (Not supervised by radiologist): MIP and/or 3D reconstructed images were created by the technologist. Radiation optimization: All CT scans at this facility use at least one of these dose optimization techniques: automated exposure control; mA and/or kV adjustment per patient size (includes targeted exams where dose is matched to clinical indication); or iterative reconstruction. Contrast material: OMNI 350; Contrast volume: 65 ml; Contrast route: INTRAVENOUS (IV); COMPARISON: CT angio chest PE protcl [id number] 02/16/2022 1:12 PM RADIATION DOSE METRICS: Total DLP (mGy-cm): 489.14 FINDINGS: Pulmonary arteries: The exam is positive for pulmonary emboli with filling defects in the main/proximal pulmonary arteries and multiple segmental and subsegmental branches. No saddle embolus. The extent of pulmonary embolism is increased compared to the prior exam. Aorta: Unremarkable. No aortic aneurysm. No aortic dissection. Lungs: Streaky bibasilar ground-glass/airspace opacities are noted concerning for volume loss and pneumonitis/sequela pulmonary embolism. There is a small subpleural airspace opacity in the right middle lobe that may reflect a small Ambrosio's hump or pulmonary infarct measuring 8 mm in size. A similar subpleural opacity in the left upper lobe measures 2 cm in size. Pleural spaces: There is a small left pleural effusion. Heart: No right heart strain. Heart RV/LV ratio: The RV/LV ratio is 0.78. Lymph nodes: Unremarkable. No enlarged lymph nodes. Diaphragm: A small hiatal hernia is present. Bones/joints: Chronic appearing anterior wedging fracture deformities are noted in the thoracic spine. No acute bony abnormality. Soft tissues: Unremarkable. CT/CT angio chest PE protcl [id number] IMPRESSION: 1. The exam is positive for pulmonary embolus. No right heart strain. 2. Streaky bibasilar ground-glass/airspace opacities are noted concerning for volume loss and pneumonitis/sequela pulmonary embolism. 3. Bilateral subpleural airspace opacities may reflect Ambrosio's hump/small pulmonary infarcts.
[2022-05-07 20:13] VITALS: BP 97/60; PULSE 117; RESP 22; TEMP 37.6; O2SAT 95; BMI 25.1
[2022-05-07 20:16] VITALS: BP 92/58; PULSE 113; RESP 22; O2SAT 94
--- NOTE | 2022-05-07 20:18 | ED_ITS ---
HPI - Chest Pain General: Chief Complaint: Chest Pain Stated Complaint: Chest Pain/SOB Time Seen by Provider: 05/07/22 20:10 Source: patient Mode of arrival: ambulatory Limitations: no limitations History of Present Illness: 41-year-old male who has a history of a PE roughly 3 to 4 months ago. He states that over the last 2 days has been having increasing chest chest pain and shortness of breath. He states his pain is sharp in nature and has been on the right side. He is on Eliquis states he been taking his Eliquis. He states he also had some low-grade fevers along with body aches and feeling weak over the last 2 days as well. He denies any worsening improving factors denies any vomiting or diarrhea. Associated symptoms: Reports dyspnea and fever(s); Deny abdominal pain, nausea or vomiting Review of Systems Const: Reports: fever(s) and body aches Eyes: Denies: blurry vision or eye discomfort ENMT: Denies: throat pain or dental pain Card: Reports: chest pain Resp: Reports: dyspnea GI: Denies: abdominal pain, nausea, vomiting or diarrhea : Denies: dysuria Musc: Denies: neck pain or back pain Skin/Breast: Denies: rash Neuro: Denies: headache(s) Psych: Denies: depression Mikie/Lymph: Denies: easy bruising All/Imm: Denies: urticaria PFSH ED PFSH: Medical History (Updated 05/07/22 @ 21:40 by Aaron Zazueta MD) Chronic kidney disease Hypertension Hyperthyroidism Pulmonary emboli Social History (Updated 02/16/22 @ 17:52 by Franky Salazar DO) Smoking and tobacco status: never smoked Alcohol intake: never Physical Exam Const: COMMON NORMALS: patient oriented x3 HENMT: COMMON NORMALS: normocephalic and atraumatic HEAD & SCALP: normocephalic and atraumatic Eye: COMMON NORMALS: Equal, round and reactive pupils present and EOMs intact bilaterally PUPIL: Yes Equal, round and reactive pupils present Neck/C-Spine: COMMON NORMALS: full ROM and supple Chest: COMMONS NORMALS: normal inspection of the chest and normal palpation of entire chest wall Resp: COMMON NORMALS: normal respiratory effort, No retractions, No use of accessory muscles and clear to auscultation bilaterally AUSCULTATION: clear to auscultation bilaterally Cardio: COMMON NORMALS: regular rhythm and No murmurs present (Cardio) RATE: tachycardic RHYTHM: regular rhythm GI: COMMON NORMALS: Normal to inspection, nondistended, normoactive bowel sounds present, Soft to palpation, non-tender and no masses PALPATION: Yes Soft to palpation Extremity: COMMON NORMALS: normal to inspection and full ROM Neuro: COMMON NORMALS: patient oriented x3, moves all extremities and no focal motor deficits Psych: COMMON NORMALS: mental status grossly normal, Normal thought process present and cooperative THOUGHT PROCESS: Normal thought process present Skin: COMMON NORMALS: no rashes or lesions noted and no wounds GENERAL SKIN EXAM: no rashes or lesions noted Course Vital Signs: Vital signs: Vital Signs Temperature 98.4 F 05/07/22 21:15 Pulse Rate 96 05/07/22 21:15 Respiratory Rate 22 H 05/07/22 21:15 Blood Pressure 100/68 05/07/22 21:15 Pulse Oximetry 94 05/07/22 21:15 MDM - Chest Pain Medical Decision Making Patient presents for chest pain likely from his pulmonary emboli. He does have increased clot burden but no signs of heart strain troponin and BNP here are normal his vital signs here are normal as well. I spoke to his PCP Dr. Ortez went over findings we will double his Eliquis dose over the next 5 days he is to follow-up with his PCP this week as well. He has been pain-free here currently he is stable for discharge he is to follow-up this week and return to ER if he h as any worsening pain or shortness of breath he understands agrees to plan. Lab Data : 05/07/22 20:15 05/07/22 20:15 Radiology Impressions Chest CTA 05/07/22 20:12 IMPRESSION: 1. The exam is positive for pulmonary embolus. No right heart strain. 2. Streaky bibasilar ground-glass/airspace opacities are noted concerning for volume loss and pneumonitis/sequela pulmonary embolism. 3. Bilateral subpleural airspace opacities may reflect Ambrosio's hump/small pulmonary infarcts. ADDENDUM: 05/07/22 1730 THIS REPORT CONTAINS FINDINGS THAT MAY BE CRITICAL TO PATIENT CARE. The findings were verbally communicated via telephone conference with AARON ZAZUETA at 9:21 PM CDT on 05/07/2022. The findings were acknowledged and understood. Chest X-Ray 05/07/22 20:12 IMPRESSION: No acute findings. Laboratory Results WBC 16.0 10^3/uL (4.0-10.0) H 05/07/22 20:15 RBC 4.77 10^6/uL (4.1-5.3) 05/07/22 20:15 Hgb 16.1 g/dL (11.7-16.6) 05/07/22 20:15 Hct 45.1 % (42.0-52.0) 05/07/22 20:15 MCV 94.5 fl (80-94) H 05/07/22 20:15 MCH 33.8 pg (28.0-34.0) 05/07/22 20:15 MCHC 35.7 g/dL (30.0-36.0) 05/07/22 20:15 RDW 14.0 % (12.1-15.1) 05/07/22 20:15 Plt Count 161 10^3/cmm (130-400) 05/07/22 20:15 MPV 9.8 fL (7.4-10.4) 05/07/22 20:15 Neut % (Auto) 76.5 % 05/07/22 20:15 Lymph % (Auto) 13.8 % 05/07/22 20:15 [place] % (Auto) 7.8 % 05/07/22 20:15 Eos % (Auto) 0.8 % 05/07/22 20:15 Baso % (Auto) 0.5 % 05/07/22 20:15 Neut # (Auto) 12.23 10^3/uL (1.8-7.7) H 05/07/22 20:15 Lymph # (Auto) 2.2 10^3/uL (0.8-4.8) 05/07/22 20:15 [place] # (Auto) 1.2 10^3/uL (0.2-0.9) H 05/07/22 20:15 Eos # (Auto) 0.1 10^3/uL (0.0-0.8) 05/07/22 20:15 Baso # (Auto) 0.1 10^3/uL (0.0-0.1) 05/07/22 20:15 Nucleated RBC % (auto) 0 % 05/07/22 20:15 Nucleated RBCs # 0.0 /100WBC 05/07/22 20:15 PT 15.20 SECONDS (12.1-14.9) H 05/07/22 20:15 INR 1.17 (0.8-1.2) 05/07/22 20:15 Sodium 132 mmol/L (136-145) L 05/07/22 20:15 Potassium 3.9 mmol/L (3.5-5.1) 05/07/22 20:15 Chloride 97 mmol/L (98-107) L 05/07/22 20:15 Carbon Dioxide 26 mmol/L (22-29) 05/07/22 20:15 Anion Gap 12.9 (5-19) 05/07/22 20:15 BUN 6 mg/dL (6-20) 05/07/22 20:15 Creatinine 0.8 mg/dL (0.7-1.2) 05/07/22 20:15 GFR Calculation 105.5 mL/min (90-130) 05/07/22 20:15 Glucose 128 mg/dL (65-115) H 05/07/22 20:15 Calculated Osmolality 273 mOsm/kg (285-295) L 05/07/22 20:15 Calcium 8.3 mg/dL (8.5-10.5) L 05/07/22 20:15 Total Bilirubin 0.2 mg/dL (0.15-1.2) 05/07/22 20:15 AST 17 U/L (0-40) 05/07/22 20:15 ALT 6 U/L (0-41) 05/07/22 20:15 Alkaline Phosphatase 59 IU/L (40-130) 05/07/22 20:15 Troponin T Baseline 9 ng/L (0-15) 05/07/22 20:15 NT-Pro-B Natriuret Pep 215 pg/mL (0-125) H 05/07/22 20:15 Total Protein 3.6 g/dL (6.6-8.7) L 05/07/22 20:15 Albumin 1.5 g/dL (3.5-5.2) L 05/07/22 20:15 Globulin 2.1 g/dL (1.3-4.6) 05/07/22 20:15 TSH 4.10 uIU/mL (0.27-4.20) 05/07/22 20:15 SARS-CoV-2 Ag (Rapid) Negative (Negative) 05/07/22 20:20 EKG Data EKG 1: I personally reviewed and interpreted this EKG as follows: EKG interpretation date: 05/07/22 EKG interpretation time: 20:10 Interpretation: sinus tach hr [address] or t wave abnormalities qrs 86 qtc 372 Discharge Plan Discharge Patient Disposition: Home Clinical Impression: Pulmonary emboli Condition: Stable Prescriptions: New hydrocodone-acetaminophen 5-325 mg tablet 1 tab PO Q6H PRN (Reason: pain) Qty: 14 0RF cephalexin 500 mg capsule 500 mg PO TID 7 Days Qty: 21 0RF No Action atenolol 100 mg Tablet 100 mg PO DAILY@19 0RF hydrocodone-acetaminophen 5-325 mg tablet 1 tab PO Q4H PRN (Reason: Pain) 0RF spironolactone 25 mg tablet 25 mg PO QAM 0RF methimazole 5 mg tablet 5 mg PO DAILY@19 0RF olmesartan 20 mg tablet 20 mg PO DAILY 0RF Eliquis DVT-PE Treat 30D Start 5 mg (74 tabs) tablets,dose pack 5 mg PO BID Qty: 74 6RF Rx Instructions: Take 10 mg po BID till 4/16 thereafter 5 mg po BID hydromorphone 2 mg tablet 2 mg PO Q6H PRN (Reason: pain) Qty: 14 0RF Discharge Orders: Discharge ED (Routine); Ordered 05/07/22 Ordered By: Aaron Zazueta Referrals: Fidel Tesfaye MD [Primary Care Provider] - Discharge Diet: Advance as tolerated Discharge Activity: Resume usual activity Patient Instructions: Pulmonary Embolism (ED), Opioid Safety Activity Restrictions/Additional Instructions: double your eliquis dose over the next five days then go back to normal dose Coding Level of Care Code ED Professional Volleyball Player for Chg Fwd Exam Comprehensive
[2022-05-07 20:23] LABS: Basophils # 0.1 10^3/uL (0.0-0.1); Basophils % 0.5 %; Eosinophils # 0.1 10^3/uL (0.0-0.8); Eosinophils % 0.8 %; Hematocrit 45.1 % (42.0-52.0); Hemoglobin 16.1 g/dL (11.7-16.6); Lymphocytes # 2.2 10^3/uL (0.8-4.8); Lymphocytes % 13.8 %; Mean Corpuscular HGB Conc 35.7 g/dL (30.0-36.0); Mean Corpuscular Hemoglobin 33.8 pg (28.0-34.0); Mean Corpuscular Volume 94.5 fl (80-94); Mean Platelet Volume 9.8 fL (7.4-10.4); Monocytes # 1.2 10^3/uL (0.2-0.9); Monocytes % 7.8 %; Neutrophils # 12.23 10^3/uL (1.8-7.7); Neutrophils % 76.5 %; Nucleated Red Blood Cells % 0 %; Platelet Count 161 10^3/cmm (130-400); Red Blood Count 4.77 10^6/uL (4.1-5.3)
[2022-05-07] MEDS: acetaminophen 500 mg Tablet 1000 MG PO (20:34)
[2022-05-07] MEDS: sodium chloride 0.9% 1,000 ML 999 ML IV (20:35)
[2022-05-07] MEDS: iohexol 350 mg/mL 100 mL Btl IV (20:39)
[2022-05-07 20:41] LABS: INR 1.17 (0.8-1.2)
[2022-05-07 20:46] VITALS: BP 105/64; PULSE 95; RESP 18; O2SAT 91
[2022-05-07 20:51] LABS: SARS Covid-2 Antigen Negative (Negative)
[2022-05-07 20:52] LABS: Troponin(5th) Baseline 9 ng/L (0-15)
[2022-05-07 21:01] VITALS: BP 99/61; PULSE 95; RESP 22; O2SAT 91
[2022-05-07 21:02] LABS: Alanine Aminotransferase 6 U/L (0-41); Albumin Level 1.5 g/dL (3.5-5.2); Alkaline Phosphatase 59 IU/L (40-130); Aspartate Amino Transferase 17 U/L (0-40); Blood Urea Nitrogen 6 mg/dL (6-20); Calcium 8.3 mg/dL (8.5-10.5); Carbon Dioxide 26 mmol/L (22-29); Chloride 97 mmol/L (98-107); Globulin 2.1 g/dL (1.3-4.6); Glomerular Filtration Rate 105.5 mL/min (90-130); Glucose 128 mg/dL (65-115); NT Pro B Type Natriuretic Pept 215 pg/mL (0-125); Osmolality Calculated 273 mOsm/kg (285-295); Sodium 132 mmol/L (136-145); Total Bilirubin 0.2 mg/dL (0.15-1.2); Total Protein 3.6 g/dL (6.6-8.7)
[2022-05-07 21:04] LABS: Anion Gap 12.9 (5-19); Potassium 3.9 mmol/L (3.5-5.1)
[2022-05-07 21:15] VITALS: BP 100/68; PULSE 96; RESP 22; TEMP 36.9; O2SAT 94
[2022-05-07] MEDS: HYDROcodone-acetaminophen 5-325 mg Tablet 1 TAB PO (21:52)
[2022-05-07 22:15] VITALS: BP 98/70; PULSE 91; RESP 20; TEMP 36.9; O2SAT 95
[2022-05-08 01:33] VITALS: BP 98/70; PULSE 91; RESP 20; TEMP 36.9; O2SAT 95
--- NOTE | 2022-05-16 14:32 | DCPLANNER ---
Addendum entered by Mckenzie Porras 06/04/22 15:41: Patient had a follow up appointment scheduled for 05.30.[address] Lowry - patient did attend appointment. Original Note: off track betting manager had message to schedule a follow up appointment with Dr. Lowry. off track betting manager spoke with Sammie Noel at the [facility] treatment [facility], gave clinic patients information. off track betting manager was told that patients information would be printed and reviewed. Clinic will call patient with appointment information.
== END 2022-05-07 22:15 | disposition home or self-care (01) ==
PROVIDERS: Emergency Provider Emergency Medicine; PCP Family Medicine
DX: I26.99 Other pulmonary embolism without acute cor pulmonale (principal); Z79.01 Long term (current) use of anticoagulants; I10 Essential (primary) hypertension; Z86.711 Personal history of pulmonary embolism; Z20.822 Contact with and (suspected) exposure to COVID-19
CPT/HCPCS: 71045; 71275; 80053; 83880; 84443; 84484; 85025; 85610; 87426; 93005; 96360; 99285; J7030; Q9967

== ENCOUNTER 2022-05-30 07:33 | Oncology outpatient (recurring) (ONCR) | payer BC, SELFPAY | END 2022-06-10 23:59 | disposition home or self-care (01) | PROVIDERS: PCP Family Medicine; Visit Provider Internal Medicine Medical Oncology | DX: Z53.9 Procedure and treatment not carried out, unspecified reason (principal) ==

== ENCOUNTER 2022-06-01 10:54 | Outpatient (CLI) | payer BC, SELFPAY ==
[2022-06-01 11:25] LABS: Basophils # 0.1 10^3/uL (0.0-0.1); Basophils % 1.2 %; Eosinophils # 0.3 10^3/uL (0.0-0.8); Eosinophils % 3.3 %; Hematocrit 48.8 % (42.0-52.0); Hemoglobin 16.3 g/dL (11.7-16.6); Lymphocytes # 4.6 10^3/uL (0.8-4.8); Lymphocytes % 49.8 %; Mean Corpuscular HGB Conc 33.4 g/dL (30.0-36.0); Mean Corpuscular Hemoglobin 33.8 pg (28.0-34.0); Mean Corpuscular Volume 101.2 fl (80-94); Mean Platelet Volume 9.8 fL (7.4-10.4); Monocytes # 0.6 10^3/uL (0.2-0.9); Neutrophils # 3.54 10^3/uL (1.8-7.7); Neutrophils % 38.4 %; Nucleated Red Blood Cells % 0 %; Platelet Count 266 10^3/cmm (130-400); Red Blood Count 4.82 10^6/uL (4.1-5.3); White Blood Count 9.2 10^3/uL (4.0-10.0)
[2022-06-01 11:44] LABS: Albumin Level 1.5 g/dL (3.5-5.2); Alkaline Phosphatase 69 IU/L (40-130); Blood Urea Nitrogen 9 mg/dL (6-20); Calcium 7.7 mg/dL (8.5-10.5); Carbon Dioxide 29 mmol/L (22-29); Chloride 101 mmol/L (98-107); Glucose 98 mg/dL (65-115); Osmolality Calculated 281 mOsm/kg (285-295); Sodium 136 mmol/L (136-145); Total Bilirubin 0.2 mg/dL (0.15-1.2); Total Protein 4.5 g/dL (6.6-8.7)
[2022-06-01 11:47] LABS: Anion Gap 9.7 (5-19); Potassium 3.7 mmol/L (3.5-5.1)
[2022-06-01 12:00] LABS: Alanine Aminotransferase < 5 U/L (0-41); Aspartate Amino Transferase 5 U/L (0-40)
[2022-06-06 02:48] LABS: CARDIOLIPIN AB (IGA) <2.0 APL-U/mL; CARDIOLIPIN AB (IGG) <2.0 GPL-U/mL; CARDIOLIPIN AB (IGM) <2.0 MPL-U/mL
[2022-06-07 02:33] LABS: Beta 2 Glycoprotein IGA <2.0 U/mL (<20.0); Beta 2 Glycoprotein IGG <2.0 U/mL (<20.0); Beta 2 Glycoprotein IGM <2.0 U/mL (<20.0)
== END 2022-06-01 10:55 | disposition home or self-care (01) ==
PROVIDERS: PCP Family Medicine; Visit Provider Internal Medicine Medical Oncology
DX: I26.99 Other pulmonary embolism without acute cor pulmonale (principal)
CPT/HCPCS: 36415; 80053; 85025; 85130; 86146; 86147

== ENCOUNTER → 2022-06-06 07:40 | Outpatient (BNVA) | payer BC, SELFPAY | PROVIDERS: PCP Family Medicine; Visit Provider Family Medicine | DX: N05.9 Unspecified nephritic syndrome with unspecified morphologic changes (principal); I26.99 Other pulmonary embolism without acute cor pulmonale; I10 Essential (primary) hypertension | CPT/HCPCS: 80069; 82570; 84156 ==

== ENCOUNTER → 2022-06-12 15:03 | Outpatient (BNVA) | payer BC, SELFPAY | PROVIDERS: PCP Family Medicine; Visit Provider Family Medicine | DX: I10 Essential (primary) hypertension (principal); I26.99 Other pulmonary embolism without acute cor pulmonale; N05.9 Unspecified nephritic syndrome with unspecified morphologic changes; N07 Hereditary nephropathy, not elsewhere classified | CPT/HCPCS: 80074; 84155; 84165; 87389; 87806 ==

== ENCOUNTER 2022-07-02 15:15 | Oncology outpatient (recurring) (ONCR) | payer BC, SELFPAY ==
--- NOTE | 2022-06-28 07:05 | CT_ITS ---
WS: [id number] CTA OF THE CHEST WITH PULMONARY EMBOLISM PROTOCOL TECHNIQUE: High-resolution contrast enhanced CTA of the chest with coronal and sagittal reformatted i ruths with pulmonary embolism protocol. MIP images are also reviewed. CLINICAL INFORMATION: reassess PE COMPARISON: May 07, 2022 DLP: 525.[address] scans at [facility] use at least one of these dose optimization techniques: automated e xposure control; mA and/or kV adjustment per patient size (includes targeted exams where dose is matc hed to clinical indication); or iterative reconstruction. FINDINGS: Proximal main pulmonary arteries are normal. Previously described pulmonary embolus has significantly improved from previous with recanalization. A few residual tiny filling defects are visualized in th e segmental and subsegmental pulmonary arteries consistent with chronic thrombus. No evidence of prog ressive or recurrent embolus. Normal caliber thoracic aorta. Calcified anterior mediastinal and hilar lymph nodes. Small esophageal hiatal hernia. Adrenal glands are normal. No axillary lymphadenopathy. Slight bibasi lar atelectasis. A few calcific granulomas. Moderate thoracic kyphosis. Chronic anterior wedging in the mid thoracic spine. CT/CT angio chest PE protcl [id number] IMPRESSION: 1. Significant interval improvement with recanalization of the previously desc ribed extensive pulmonary embolus with near resolution. A few residual tiny miriam ling defects consistent with chronic thrombus. No evidence of new or progressiv e embolus. 2. Lungs are well aerated. Slight bibasilar atelectasis. 3. No other significant changes compared to previous.
[2022-06-28] MEDS: iohexol 350 mg/mL 100 mL Btl IV (07:22)
== END 2022-07-11 23:59 | disposition home or self-care (01) ==
PROVIDERS: PCP Family Medicine; Visit Provider Internal Medicine Medical Oncology
DX: Z53.9 Procedure and treatment not carried out, unspecified reason (principal)
CPT/HCPCS: 71275

== ENCOUNTER → 2022-07-10 08:05 | Day surgery (SDC) | payer BC, SELFPAY ==
[2022-07-10 08:15] VITALS: BP 102/67; PULSE 75; RESP 18; TEMP 36.6; O2SAT 97
[2022-07-10] MEDS: diphenhydrAMINE 50 mg/mL SDV 1mL IVP (08:26)
[2022-07-10] MEDS: famotidine 20 mg/2 mL INJ IVP (08:28)
== END ==
PROVIDERS: PCP Family Medicine; Visit Provider Registered Nurse
DX: E88.89 Other specified metabolic disorders (principal)
CPT/HCPCS: 96365; 96366; 96374; 96375; J1200; J2930; J3490; J7040; J9312

== ENCOUNTER → 2022-07-24 07:57 | Day surgery (SDC) | payer BC, SELFPAY ==
[2022-07-24] MEDS: diphenhydrAMINE 50 mg/mL SDV 1mL IVP (08:08)
[2022-07-24] MEDS: famotidine 20 mg/2 mL INJ IVP (08:11)
[2022-07-24] MEDS: rituximab 1,000 MG in sodium chloride 0.9% 500 ML 50 MG IV (08:26)
[2022-07-24 10:56] VITALS: BP 119/80; PULSE 74; RESP 18; TEMP 36.4; O2SAT 98
== END ==
PROVIDERS: PCP Family Medicine; Visit Provider Registered Nurse
DX: E88.89 Other specified metabolic disorders (principal)
CPT/HCPCS: 80069; 82570; 84156; 85025; 96365; 96366; 96374; 96375; J1200; J2930; J3490; J7040; J9312

== ENCOUNTER → 2022-08-15 07:47 | Outpatient (BNVA) | payer BC, SELFPAY | PROVIDERS: PCP Family Medicine; Visit Provider Family Medicine | DX: N18.2 Chronic kidney disease, stage 2 (mild) (principal) | CPT/HCPCS: 80069; 82043; 85025 ==

== ENCOUNTER 2022-08-22 09:16 | Inpatient (IN) | payer BC, SELFPAY ==
[2022-08-22] VITALS (11 sets, daily range): BP systolic 117–129; BP diastolic 71–77; PULSE 84–97; RESP 16–41; TEMP 36.7; O2SAT 95–97; BMI 25.1
--- NOTE | 2022-08-22 09:28 | ECG_ITS ---
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 Measurements Intervals [place] Rate: 84 P: 15 PA: 138 QRS: -22 QRSD: 92 T: 16 QT: 350 QTc: 414 Interpretive Statements SINUS RHYTHM POSSIBLE LEFT ATRIAL ENLARGEMENT [-0.1mV P-WAVE IN V1/V2] BORDERLINE LEFT AXIS DEVIATION [QRS AXIS < -20] Compared to ECG 05/07/2022 20:10:19 Sinus tachycardia no longer present Electronically Signed On 08-23-2022 13:04:21 CDT by Victoria Smith M.D. [id number]
--- NOTE | 2022-08-22 09:53 | ED_ITS ---
HPI - Chest Pain General: Chief Complaint: Chest Pain Stated Complaint: chest pain Time Seen by Provider: 08/22/22 09:43 Source: patient Mode of arrival: ambulatory History of Present Illness: 41-year-old male who presents to the emergency room with complaints of left-sided abdominal pain radiate up into the chest medically for the last couple of days.. He has an extensive history of surgery reviewed in the chart. Seen this patient back in February at that time he had a large PE was hospitalized started on heparin he was discharged home on oral anticoagulants he later had what appeared to be extension of his PEs while on the oral anticoagulants his Eliquis was increased and then he was transitioned to Lovenox. Subsequent follow-up in June with CTA showed he was having good clearing of the emboli burden. When initially presented he did have some right heart strain. Today he is complaining of pain on the left side of the chest although when talking to him in detail it starts on the right side of his abdomen and radiates up into the left side of his chest. Patient also reports some dark stools the last few days. No radiation to the chest pain into the neck arms or back. MD complaint: chest discomfort Onset (ago): day(s) Timing of current episode: episodic Prior episodes: Yes Onset: during rest Pain location: other (Epigastrium) Pain radiation: other (Left side of the chest) Severity: moderate Quality: tightness Relieving factors: nothing and other (I did note on exam it seems to be somewhat positional) Exacerbating factors: nothing Associated symptoms: Reports abdominal pain and dyspnea; Deny diaphoresis, fever(s), leg edema, nausea, palpitations, sense of impending doom, syncope or vomiting Treatment prior to arrival: none Review of Systems Const: Denies: fever(s), chills, fatigue, malaise or diaphoresis ENMT: Denies: throat pain, ear or mastoid pain, nasal discharge or nasal congestion Card: Reports: chest pain and dyspnea on exertion; Denies: palpitations or syncope Resp: Reports: dyspnea; Denies: productive cough, non-productive cough or wheezing GI: Reports: abdominal pain; Denies: nausea, vomiting, hematemesis or hematochezia : Denies: flank pain, difficulty urinating, dysuria, urinary frequency or urinary urgency Skin/Breast: Denies: rash or pruritus PFSH ED PFSH: Medical History (Updated 08/22/22 @ 17:29 by Franky Salazar DO) Glomerulonephritis 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 [facility] Hypertension Hyperthyroidism Pulmonary emboli Family History Father Cancer Pancreatic Other Hypertension Denies family history of Diabetes CAD (coronary artery disease) Clotting disorder Dementia Psychiatric illness Chronic kidney disease (CKD) Suicide Anesthesia complication Bleeding disorder Lung disease Stroke Social History Smoking and tobacco status: current every day smoker (0.5 ppd) cigarettes Packs smoked per day: 0.5 Alcohol intake: current Alcohol intake frequency: 0-2 Drinks per Day Alcohol type: beer Physical Exam Const: GENERAL APPEARANCE: cooperative and comfortable ORIENTATION/CONSCIOUSNESS: Yes awake, Yes oriented to person, Yes oriented to place and Yes oriented to time HENMT: COMMON NORMALS: normocephalic, atraumatic and hearing grossly normal bilaterally HEAD & SCALP: normocephalic and atraumatic Resp: COMMON NORMALS: normal respiratory effort, No retractions, No use of accessory muscles and clear to auscultation bilaterally AUSCULTATION: clear to auscultation bilaterally Cardio: COMMON NORMALS: regular rate, regular rhythm and No murmurs present (Cardio) RATE: regular rate RHYTHM: regular rhythm GI: COMMON NORMALS: No hepatosplenomegaly present AUSCULTATION: Yes normoac tive bowel sounds PALPATION: Yes Tenderness to palpation present (GI) (Left side), No Guarding due to palpation present (GI) and Yes No hepatosplenomegaly present Extremity: COMMON NORMALS: normal to inspection, capillary refill normal, no clubbing, cyanosis or edema, no calf tenderness and no pedal edema Neuro: SENSORIUM/ORIENTATION: Yes oriented to person, Yes oriented to place and Yes oriented to time Skin: COMMON NORMALS: no rashes or lesions noted GENERAL SKIN EXAM: no rashes or lesions noted Course Vital Signs: Vital signs: Vital Signs Temperature 98.1 F 08/22/22 09:24 Pulse Rate 96 08/22/22 09:24 Respiratory Rate 20 H 08/22/22 16:48 Blood Pressure 117/71 08/22/22 09:24 Pulse Oximetry 95 08/22/22 09:24 Oxygen Delivery Me thod 10/12/22 09:24 MDM - Chest Pain Medical Decision Making DiscussedPatient has extensive PEs with question of infarct in the lower lobes he also has a renal vein thrombosis. Dr. Lowry and then with Dr. Snider several times. They are uncertain about the length time he need to be on heparin with the discharge planning would be. He is showing evidence of worseni ng while here in the emergency room and I think you will need to be admitted we looked at transferring the patient to [place] or to [facility] in [place] neither are able to take any patients on transfer and be over a week before they could accept him. We will go ahead and admit the patient here continue on heparin Dr. Short is admitting. Medical Records I reviewed the patient's medical records. Lab Data I reviewed the patient's lab results. : 08/22/22 10:03 08/22/22 10:03 Radiology Impressions Chest/Abdomen/Pelvis CT 08/22/22 09:59 IMPRESSION: 1. Moderate increase in pulmonary embolic burden since 06/28/2022. This most significant progression of occlusive emboli bilaterally in the lower lobes. 2. Mild wedge-shaped hazy attenuation at the lung bases likely due to developing pulmonary infarcts. 3. Mild RIGHT heart strain. 4. Nonocclusive RIGHT renal vein thrombosis. 5. No additional acute abnormalities in the abdomen and pelvis. Notified Franky Salazar DO at 08/22/2022 10:54 AM. Laboratory Results WBC 17.9 10^3/uL (4.0-10.0) H 08/22/22 10:03 RBC 4.81 10^6/uL (4.1-5.3) 08/22/22 10:03 Hgb 15.9 g/dL (11.7-16.6) 08/22/22 10:03 Hct 48.0 % (42.0-52.0) 08/22/22 10:03 MCV 99.8 fl (80-94) H 08/22/22 10:03 MCH 33.1 pg (28.0-34.0) 08/22/22 10:03 MCHC 33.1 g/dL (30.0-36.0) 08/22/22 10:03 RDW 14.8 % (12.1-15.1) 08/22/22 10:03 Plt Count 260 10^3/cmm (130-400) 08/22/22 10:03 Plt Count 271 10^3/cmm (130-400) 08/22/22 10:03 MPV 10.2 fL (7.4-10.4) 08/22/22 10:03 Neut % (Auto) 76.8 % 08/22/22 10:03 Lymph % (Auto) 11.5 % 08/22/22 10:03 [place] % (Auto) 8.4 % 08/22/22 10:03 Eos % (Auto) 1.4 % 08/22/22 10:03 Baso % (Auto) 0.7 % 08/22/22 10:03 Neut # (Auto) 13.74 10^3/uL (1.8-7.7) H 08/22/22 10:03 Lymph # (Auto) 2.1 10^3/uL (0.8-4.8) 08/22/22 10:03 [place] # (Auto) 1.5 10^3/uL (0.2-0.9) H 08/22/22 10:03 Eos # (Auto) 0.3 10^3/uL (0.0-0.8) 08/22/22 10:03 Baso # (Auto) 0.1 10^3/uL (0.0-0.1) 08/22/22 10:03 Nucleated RBC % (auto) 0 % 08/22/22 10:03 Nucleated RBCs # 0.0 /100WBC 08/22/22 10:03 PT 14.40 SECONDS (12.1-14.9) 08/22/22 16:15 INR 1.09 (0.8-1.2) 08/22/22 16:15 APTT 106.5 SECONDS (23.9-36.7) H 08/22/22 16:15 Sodium 135 mmol/L (136-145) L 08/22/22 10:03 Potassium 4.7 mmol/L (3.5-5.1) 08/22/22 10:03 Chloride 101 mmol/L (98-107) 08/22/22 10:03 Carbon Dioxide 24 mmol/L (22-29) 08/22/22 10:03 Anion Gap 14.7 (5-19) 08/22/22 10:03 BUN 9 mg/dL (6-20) 08/22/22 10:03 Creatinine 0.8 mg/dL (0.7-1.2) 08/22/22 10:03 GFR Calculation 105.5 mL/min (90-130) 08/22/22 10:03 Glucose 107 mg/dL (65-115) 08/22/22 10:03 Calculated Osmolality 279 mOsm/kg (285-295) L 08/22/22 10:03 Calcium 7.5 mg/dL (8.5-10.5) L 08/22/22 10:03 Total Bilirubin 0.2 mg/dL (0.15-1.2) 08/22/22 10:03 AST 18 U/L (0-40) 08/22/22 10:03 ALT 8 U/L (0-41) 08/22/22 10:03 Alkaline Phosphatase 75 U/L (40-130) 08/22/22 10:03 Troponin T Gen 5 ng/L 6 ng/L (0-15) 08/22/22 10:03 Total Protein 5.1 g/dL (6.6-8.7) L 08/22/22 10:03 Albumin 1.1 g/dL (3.5-5.2) L 08/22/22 10:03 Globulin 4.0 g/dL (1.3-4.6) 08/22/22 10:03 Lipase 20 U/L (13-60) 08/22/22 10:03 TSH 7.11 uIU/mL (0.27-4.20) H 08/22/22 10:03 Free T4 0.53 ng/dL (0.82-1.77) L 08/22/22 10:03 Free T3 2.3 PG/ML (2.0-4.4) 08/22/22 10:03 Discharge Plan Discharge Patient Disposition: Admitted As Inpatient Clinical Impression: Pulmonary emboli, Renal vein occlusion, Glomerulonephritis, Hypertension, Hyperthyroidism Condition: Stable Prescriptions: No Action acetaminophen 500 mg capsule 1,000 mg PO Q6H PRN (Reason: Pain) furosemide 40 mg tablet 40 mg PO EVERY OTHER DAY enoxaparin 80 mg/0.8 mL syringe 80 mg SUBCUT Q12H Qty: 60 1RF spironolactone 25 mg tablet 25 mg PO QAM methimazole 5 mg tablet 5 mg PO DAILY@19 olmesartan 20 mg tablet 20 mg PO DAILY hydrocodone-acetaminophen 5-325 mg tablet 1 tab PO Q6H PRN (Reason: pain) Qty: 14 0RF Referrals: Fidel Tesfaye MD [Primary Care Provider] - Coding Level of Care Code ED Director Of Cardiac Cath Lab for Chg Fwd Exam Detailed
--- NOTE | 2022-08-22 09:59 | CT_ITS ---
WS: [id number] CTA CHEST WITH CT ABDOMEN AND PELVIS. HISTORY: Chest pain, right-sided abdominal pain and short of breath. TECHNIQUE: CT angiogram is performed through the chest. Additional imaging is performed through the a bdomen and pelvis with IV contrast. Sagittal and coronal reformats have been submitted. MIP imaging also reviewed. All CT scans at [facility] use at least one of these dose optimization techniqu es: automated exposure control; mA and/or kV adjustment per patient size (includes targeted exams whe re dose is matched to clinical indication); or iterative reconstruction. Contrast: Omnipaque 350; 100 cc IV. DLP: 826.12 mGy.cm COMPARISON: 06/28/2022 Chest CTA: No central pulmonary embolism. Patient has known pulmonary emboli. Since the prior examina tion of 06/28/2022 the embolic burden beginning in the proximal lobar arteries extending into the segm ental and subsegmental branches within the lower lobes has significantly progressed. Increasing embol ic burden in the RIGHT middle lobe artery. There are a few small filling defects in the segmental bra nches of the upper lobes. Lung volumes are decreased. There is mild haziness throughout both lungs which is in part due to poor inspiration and possibly oligemia. Mild wedge-shaped areas beginning at the lung bases from pulmonar y infarcts. No effusions. Pulmonary artery size remains normal. There is mild flattening of the inter ventricular septum suggesting RIGHT heart strain. Mildly prominent bilateral hilar lymphoid tissue. Abdomen CT: Liver and spleen are negative. Normal gallbladder and adrenal glands. No pancreatic abnor mality. Kidneys are perfusing normally. There is a filling defect in the RIGHT renal vein. Nonocclusi ve filling defect filling of just over 50% of the RIGHT renal vein. LEFT renal vein appears normal. N o thrombus in the IVC appreciated. Mild atherosclerosis aorta. No ascites or free air. No adenopathy. No GI tract obstruction or wall thickening. Appendix is normal. Pelvic CT: No free fluid or adenopathy. Normal distention of the urinary bladder. There is mild soft tissue anasarca. No osteoblastic or osteolytic bone disease. CT/CT angio chest w abd pel w con IMPRESSION: 1. Moderate increase in pulmonary embolic burden since 06/28/2022. This most si gnificant progression of occlusive emboli bilaterally in the lower lobes. 2. Mild wedge-shaped hazy attenuation at the lung bases likely due to developi ng pulmonary infarcts. 3. Mild RIGHT heart strain. 4. Nonocclusive RIGHT renal vein thrombosis. 5. No additional acute abnormalities in the abdomen and pelvis. Notified Franky Salazar DO at 08/22/2022 10:54 AM.
[2022-08-22] MEDS: iohexol 350 mg/mL 100 mL Btl IV (10:37)
[2022-08-22 11:10] LABS: Platelet Count 260 10^3/cmm (130-400)
--- NOTE | 2022-08-22 11:18 | ECG_ITS ---
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 Measurements Intervals [place] Rate: 89 P: 16 SC: 128 QRS: -25 QRSD: 95 T: 19 QT: 346 QTc: 421 Interpretive Statements SINUS RHYTHM POSSIBLE LEFT ATRIAL ENLARGEMENT [-0.1mV P-WAVE IN V1/V2] BORDERLINE LEFT AXIS DEVIATION [QRS AXIS < -20] INCOMPLETE RIGHT BUNDLE BRANCH BLOCK Compared to ECG 05/07/2022 20:10:19 Incomplete right bundle-branch block now present Sinus tachycardia no longer present Electronically Signed On 08-23-2022 12:56:30 CDT by Victoria Smith M.D. [email or web address] centerPharmAke[facility]rapeutics[facility].[email or web address]/[id number]
[2022-08-22 11:39] LABS: Basophils # 0.1 10^3/uL (0.0-0.1); Basophils % 0.7 %; Eosinophils # 0.3 10^3/uL (0.0-0.8); Eosinophils % 1.4 %; Hemoglobin 15.9 g/dL (11.7-16.6); Lymphocytes # 2.1 10^3/uL (0.8-4.8); Lymphocytes % 11.5 %; Mean Corpuscular HGB Conc 33.1 g/dL (30.0-36.0); Mean Corpuscular Hemoglobin 33.1 pg (28.0-34.0); Mean Corpuscular Volume 99.8 fl (80-94); Mean Platelet Volume 10.2 fL (7.4-10.4); Monocytes # 1.5 10^3/uL (0.2-0.9); Monocytes % 8.4 %; Neutrophils # 13.74 10^3/uL (1.8-7.7); Neutrophils % 76.8 %; Nucleated Red Blood Cells % 0 %; Platelet Count 271 10^3/cmm (130-400); Red Blood Count 4.81 10^6/uL (4.1-5.3); Red Cell Distribution Width 14.8 % (12.1-15.1); White Blood Count 17.9 10^3/uL (4.0-10.0)
[2022-08-22 11:47] LABS: Albumin Level 1.1 g/dL (3.5-5.2); Alkaline Phosphatase 75 U/L (40-130); Blood Urea Nitrogen 9 mg/dL (6-20); Calcium 7.5 mg/dL (8.5-10.5); Carbon Dioxide 24 mmol/L (22-29); Chloride 101 mmol/L (98-107); Glomerular Filtration Rate 105.5 mL/min (90-130); Glucose 107 mg/dL (65-115); Lipase 20 U/L (13-60); Osmolality Calculated 279 mOsm/kg (285-295); Sodium 135 mmol/L (136-145); Total Bilirubin 0.2 mg/dL (0.15-1.2); Total Protein 5.1 g/dL (6.6-8.7)
[2022-08-22 11:55] LABS: Anion Gap 14.7 (5-19)
[2022-08-22 11:56] LABS: Alanine Aminotransferase 8 U/L (0-41); Aspartate Amino Transferase 18 U/L (0-40); Potassium 4.7 mmol/L (3.5-5.1)
[2022-08-22] MEDS: HYDROmorphone 1 mg/mL INJ 1 mL 0.5 MG IVP ×4 (12:15→21:44)
[2022-08-22] MEDS: heparin 5,000 unit/mL INJ 1 mL IV (12:30)
[2022-08-22] MEDS: heparin drip 25,000 UNIT/500 ML PREMIX 22.23 UNIT IV (12:36)
[2022-08-22 13:30] LABS: Troponin T (5th) Once 6 ng/L (0-15)
[2022-08-22] MEDS: sodium chloride 0.9% 1,000 ML 999 ML IV (13:52)
[2022-08-22 14:10] LABS: Free T4 Free Thyroxine 0.53 ng/dL (0.82-1.77); T3 Free 2.3 PG/ML (2.0-4.4); Thyroid Stimulating Hormone 7.11 uIU/mL (0.27-4.20)
[2022-08-22 16:54] LABS: INR 1.09 (0.8-1.2)
--- NOTE | 2022-08-22 16:56 | P.HP_ITS ---
Providers/Chief Complaint Admitting Physician: Casper Short MD Primary Care Provider: Fidel Tesfaye MD Chief Complaint: chest pain History of Present Illness Elie Haas is a 41 year old male hospital with complaints of discomfort since yesterday and his abdomen, right side now left side, left chest discomfort, shortness of breath, and pain with inspiration. He reports the pain is similar to what he had when he had pulmonary emboli. He reports he has been consistent with taking his Lovenox 80 mg twice daily and has not missed any doses recently. He reports he is still getting treatment for glomerulonephropathy/glomerulonephritis and has been on Rituxan, with his last infusion about a month ago. He denies any recent fevers, cough. No blood in stool or black or tarry stool. Only will have a darker stool. 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); Denies: easy bruising All/Imm: Denies: urticaria Medications/Allergies Home Medications Medication Instructions Recorded Confirmed Last Taken Type methimazole 5 mg tablet 5 mg PO DAILY@19 02/16/22 08/22/22 08/21/22 History olmesartan 20 mg tablet 20 mg PO DAILY 02/16/22 08/22/22 08/21/22 History spironolactone 25 mg tablet 25 mg PO QAM 02/16/22 08/22/22 08/21/22 History hydrocodone 5 mg-acetaminophen 325 1 tab PO Q6H PRN pain #14 tabs 05/07/22 08/22/22 Unknown Rx mg tablet acetaminophen 500 mg capsule 1,000 mg PO Q6H PRN Pain 05/30/22 08/22/22 Unknown History furosemide 40 mg tablet 40 mg PO EVERY OTHER DAY 05/30/22 08/22/22 08/21/22 History enoxaparin 80 mg/0.8 mL 80 mg (0.8 mL) SUBCUT Q12H #60 mL 06/13/22 08/22/22 08/22/22 Rx subcutaneous syringe Allergies Allergy/AdvReac Type Severity Reaction Status Date / Time No Known Allergies Allergy Verified 07/24/22 07:19 PFSH Acute PFSH: Medical History (Updated 08/22/22 @ 17:21 by Casper Short MD) Glomerulonephritis 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 [facility] Hypertension Hyperthyroidism Pulmonary emboli Family History Father Cancer Pancreatic Other Hypertension Denies family history of Diabetes CAD (coronary artery disease) Clotting disorder Dementia Psychiatric illness Chronic kidney disease (CKD) Suicide Anesthesia complication Bleeding disorder Lung disease Stroke Social History Smoking and tobacco status: current every day smoker (0.5 ppd) cigarettes Packs smoked per day: 0.5 Alcohol intake: current Alcohol intake frequency: 0-2 Drinks per Day Alcohol type: beer Other PFSH information: Supplemental PFSH Information: Family history of hemochromatosis, pancreatic cancer. Surgical history of renal biopsy Vitals/I&O/Wt Last Vital Signs Temp 98.1 F 08/22/22 09:24 Pulse 96 08/22/22 09:24 Resp 20 H 08/22/22 16:48 BP 117/71 08/22/22 09:24 Pulse Ox 95 08/22/22 09:24 O2 Del Method 08/22/22 09:24 Weight last 48 hrs Weight 79.379 kg Physical Exam Narrative: General exam demonstrates a white male, complaining of chest discomfort HEENT: Atraumatic and normocephalic. Pupils equally round. Oropharynx clear. Neck is supple no lymphadenopathy thyromegaly Cardiovascular regular rate and rhythm, without murmur Lungs clear no wheezing or crackles Abdomen is soft nontender positive bowel sounds. No obvious organomegaly exam was deferred Extremities no cyanosis clubbing or edema, cap refill brisk Skin no rash Neuro no obvious focal deficits. Data : 08/22/22 10:03 08/22/22 10:03 Other Labs: Factor 10 a level was done in the emergency department and pending Calcium 7.5 LFTs normal Albumin 1.1 TSH elevated, free T4 for low, free T3 normal. Urinalysis ordered and pending CTA chest abdomen pelvis demonstrates increasing pulmonary embolic burden since June 28, possible developing pulmonary infarcts, mild right heart strain, nonocclusive right renal vein thrombosis EKG demonstrates sinus rhythm, left axis deviation, likely left atrial enlargement A&P Assessment and plan (1) Pulmonary emboli: Admission to ICU secondary to pulmonary emboli with evidence of right heart strain, potential for arrhythmia and sudden Check echocardiogram Check venous duplex Anticoagulation with heparin Discussed with hematology. Plan on heparinizing him for 4 to 5 days, then discharging on Lovenox 100 mg subcutaneous twice daily with factor Xa level done as an outpatient in approximately 2 days Will ultimately need referral to coagulation specialty physician in [place]. Discussed with family. (2) Renal vein occlusion: Anticoagulation as above (3) Glomerulonephritis: Patient with diagnosis of membranous glomerular nephritis based on previous biopsy results He has been getting Rituxan for this Check urinalysis This is a cause for his low albumin level. (4) Hypertension: Hold medicines currently in the face of pulmonary embolism (5) Hyperthyroidism: Discontinue methimazole. Thyroid levels will need to be checked as an outpatient to make sure hyperthyroidism does not recur. Plan Multiple other medical problems as outlined in past medical history Full code Heparin will suffice for DVT prophylaxis Attestations Medical Necessity Statement*: Will require greater than 2 midnight stay for evaluation and treatment of pulmonary embolism with right heart strain Coding Level of Care Code Acute Phlebotomy Services Representative for [facility] Fwd Diagnoses Pulmonary emboli I26.99 Renal vein occlusion I82.3 Glomerulonephritis N05.9 Hypertension I10 Hyperthyroidism E05.90
[2022-08-22 17:03] LABS: Partial Thromboplastin Time 106.5 SECONDS (23.9-36.7)
--- NOTE | 2022-08-22 19:09 | USCV_ITS ---
Transthoracic Echo Elie Haas Age: 41 Gender: M : 1980 Exam Date: 08/22/2022 20:00 Ordering Phys: Casper Short MD Technologist: NENA Exam Location[place] [facility] [place] Indication: sob, cp, history of pulmonary emboli. No history of cardiac intervention per patient. BP: 117 / 71 HR: 93 Rhythm: Sinus Technical Quality: Adequate MEASUREMENTS (Male / Female) Normal Values 2D ECHO LV Diastolic Diameter PLAX 4.9 cm 4.2 - 5.9 / 3.9 - 5.3 cm LV Systolic Diameter PLAX 3.0 cm IVS Diastolic Thickness 1.2 cm 0.6 - 1.0 / 0.6 - 0.9 cm IVS Systolic Thickness 1.9 cm LVPW Diastolic Thickness 1.3 cm 0.6 - 1.0 / 0.6 - 0.9 cm LVPW Systolic Thickness 1.8 cm LVOT Diameter 2.0 cm LV Ejection Fraction 2D Teich 69.0 % LV Ejection Fraction MOD 2C 69.5 % LV Ejection Fraction 2C AL 71.4 % LA Diameter 3.3 cm LA Width 4.3 cm LA Height 5.5 cm RA Width 3.9 cm RA Height 4.7 cm Aorta at Sinotubular Diameter 2.6 cm IVC Diameter 2.0 cm M-MODE Aortic Annulus Diameter 3.0 cm LA Ao Ratio MM 1.1 MV E Point Septal Separation 0.4 cm DOPPLER AV Peak Velocity 130.0 cm/s LVOT Peak Velocity 121.0 cm/s AV Area Cont Eq vti 3.0 cm squared AV Area Cont Eq pk 3.0 cm squared MV Area PHT 3.9 cm squared Mitral E to A Ratio 1.2 MV E' Velocity 48.0 cm/s Mitral E to MV E' Ratio 6.4 Mitral E to LV E' Lateral Ratio 5.9 Mitral E to LV E' Septal Ratio 6.9 TR Peak Velocity 196.0 cm/s TR Peak Gradient 15.4 mmHg TV Peak E Velocity 46.0 cm/s Right Atrial Pressure 5.0 mmHg Pulmonary Artery Systolic Pressu 20.4 mmHg PV Peak Velocity 104.0 cm/s RV Acceleration Time 0.1 s RV Ejection Time 0.3 s RV AcT/ET 0.3 FINDINGS Left Ventricle Normal left ventricular size, systolic function and wall thickness, with no regional wall motion abnormalities. Left ventricular ejection fraction is estimated at 65 %. Normal diastolic function. Right Ventricle Normal right ventricular size and systolic function. Right ventricular systolic pressure 18 mmHg. Right Atrium Normal right atrial size. Left Atrium Normal left atrial size. Mitral Valve Structurally normal mitral valve. No mitral valve stenosis. No mitral valve regurgitation. Aortic Valve Structurally normal trileaflet aortic valve. No aortic valve stenosis. No aortic valve regurgitation. Tricuspid Valve Structurally normal tricuspid valve. No tricuspid valve stenosis. Trace to mild tricuspid valve regurgitation. Pulmonic Valve Pulmonic valve not well visualized. No pulmonary valve stenosis. No pulmonary valve regurgitation. Pericardium No pericardial effusion. Aorta Normal size aortic root and proximal ascending aorta. IVC Normal IVC dimension with >50% respiratory change of the inferior vena cava. CONCLUSIONS 1. Normal left ventricular size, systolic function and wall thickness, with no regional wall motion abnormalities. Left ventricular ejection fraction is estimated at 65 %. Normal diastolic function. 2. No significant valvular abnormality. 3. Normal pulmonary artery pressure. 4. When compared to study dated 03/02/22, pulmonary artery pressure has decreased. Victoria Smith MD (Electronically Signed) Final Date: 23 August 2022 13:27 S
--- NOTE | 2022-08-22 19:09 | USCV_ITS ---
Elie Haas Age: 41 Gender: M : 1980 Exam Date: 08/22/2022 19:31 Ordering Phys: Casper Short MD Technologist: NENA Exam Location: [facility] – [place] Indication: sob, cp, history of pulmonary emboli. No history of DVT per patient HISTORY: sob, cp, history of pulmonary emboli. No history of DVT per patient. PROCEDURES: Venous duplex imaging was performed in bilateral lower extremities. The venous duplex Doppler examination of both lower extremities was performed in the standard fashion. The following venous structures were evaluated: common femoral vein, profunda vein, proximal portion of the greater saphenous vein, superficial femoral vein, and the popliteal vein. FINDINGS: Normal 2-D Doppler and augmentation and compressibility throughout the lower extremity venous structures. Additional imaging through the proximal calf veins also reveals no thrombus. Limited evaluation of the greater saphenous vein is patent with no thrombus. CONCLUSIONS No DVT bilateral lower extremities. Dr. Florence Mcdaniel DO (Electronically Signed) Final Date: 23 August 2022 07:36 S
[2022-08-22] MEDS: morphine 4 mg/mL SDV 1 mL 2 MG IVP (19:18)
[2022-08-22] MEDS: acetaminophen 325 mg Tablet 650 MG PO (19:24)
[2022-08-22] MEDS: sodium chloride 0.9% 1,000 ML 150 ML IV (19:25)
[2022-08-22] MEDS: sodium chloride 0.9% 1,000 ML 75 ML IV (21:00)
[2022-08-22 22:31] LABS: Bilirubin Urine Neg (Negative); Blood Urine 3+ (Negative); Glucose Urine UA Norm (Normal); Ketones Urine 1+ (Negative); Nitrate Urine Positive (Negative); Protein Urine 3+ (Negative); Specific Gravity, Urine 1.015 (1.005-1.030); Urine Appearance SL Hazy (CLEAR); Urine Color Yellow (Yellow); Urobilinogen Urine Norm (Negative); pH Urine 5 (5-7)
[2022-08-22 22:32] LABS: Add Urine Microscopic? YES; Leukocyte Esterase Urine Trace (Negative)
[2022-08-22 22:35] LABS: RBC Urine TOO NUMEROUS TO CNT /hpf (0-2); Squamous Epithelial Cell Urine 0-4 /hpf (0-5); WBC Urine 0-4 /hpf (0-5)
[2022-08-22 22:36] LABS: Add Urine Culture? No; Amorphous Sediment Urine 2+ /hpf; Bacteria Urine TRACE /hpf; Coarse Granular Casts Urine 0-4 /lpf
[2022-08-23] VITALS (49 sets, daily range): BP systolic 101–145; BP diastolic 62–86; PULSE 80–100; RESP 16–94; TEMP 37.6; O2SAT 90–99
[2022-08-23] MEDS: morphine 4 mg/mL SDV 1 mL 2 MG IVP ×3 (00:41→09:15)
[2022-08-23 03:37] LABS: Basophils # 0.1 10^3/uL (0.0-0.1); Basophils % 0.4 %; Eosinophils # 0.2 10^3/uL (0.0-0.8); Eosinophils % 0.9 %; Hematocrit 44.3 % (42.0-52.0); Hemoglobin 14.3 g/dL (11.7-16.6); Lymphocytes % 12.2 %; Mean Corpuscular HGB Conc 32.3 g/dL (30.0-36.0); Mean Corpuscular Hemoglobin 32.9 pg (28.0-34.0); Mean Corpuscular Volume 101.8 fl (80-94); Mean Platelet Volume 10.1 fL (7.4-10.4); Monocytes # 1.6 10^3/uL (0.2-0.9); Monocytes % 9.9 %; Neutrophils # 12.54 10^3/uL (1.8-7.7); Neutrophils % 75.9 %; Nucleated Red Blood Cells % 0 %; Platelet Count 253 10^3/cmm (130-400); Red Blood Count 4.35 10^6/uL (4.1-5.3); Red Cell Distribution Width 15.2 % (12.1-15.1); White Blood Count 16.5 10^3/uL (4.0-10.0)
[2022-08-23 04:08] LABS: Anion Gap 7.8 (5-19); Blood Urea Nitrogen 8 mg/dL (6-20); Calcium 6.9 mg/dL (8.5-10.5); Carbon Dioxide 28 mmol/L (22-29); Chloride 102 mmol/L (98-107); Glomerular Filtration Rate 105.5 mL/min (90-130); Glucose 102 mg/dL (65-115); Magnesium 1.9 mg/dL (1.7-2.3); Osmolality Calculated 277 mOsm/kg (285-295); Potassium 3.8 mmol/L (3.5-5.1); Sodium 134 mmol/L (136-145)
[2022-08-23 04:44] LABS: Partial Thromboplastin Time 45.7 SECONDS (23.9-36.7)
[2022-08-23] MEDS: heparin 5,000 unit/mL INJ 1 mL IV ×2 (04:57→12:39)
[2022-08-23] MEDS: sodium chloride 0.9% 1,000 ML 75 ML IV (05:04)
--- NOTE | 2022-08-23 06:08 | PC.NURSE ---
WHILE I WAS IN THE ROOM WITH THE PATIENT HE SUDDENLY BECAME SHORT OF BREATH, COUGHING, IN OBVIOUS DISTRESS. HIS 02 SATS STARTED DROPPING RAPIDLY, BECAME TACHYCARDIC AND TACHYPNEIC. I INCREASED HIS 02 TO 6L, GAVE HIM THE MORPHINE I WAS ALREADY PLANNING ON GIVING FOR HIS CHEST PAIN. HE WAS GETTING MORE DUSKY AND BLUE, PT THEN COUGHED UP A LARGE AMOUNT OF BLOODY CLOT. HE SLOWLY RECOVERED WHILE I CLOSELY MONITORED HIM. DR CAGE AND RESPIRATORY BOTH AT BEDSIDE. VITAL SIGNS HAVE RETURNED TO NORMAL AFTER AN HOUR AND HE IS RESTING MORE COMFORTABLY IN BED WITHOUT ANY ACUTE DISTRESS.
--- NOTE | 2022-08-23 07:28 | P.CONIM_ITS ---
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 He was diagnosed with glomerulonephritis sometime around September 2021.? I did not have any of those records available.? He has been under the care of Dr. Khan.? His initial treatment had been limited to olmesartan and diuretic therapy.? On 02/16/2022 he presented to the emergency room with chest pain and shortness of breath.? His CT pulmonary angiogram showed extensive bilateral pulmonary embolus with evidence of right heart strain.? There was associated wedge-shaped opacity in the left upper lobe along the fissure which was suspicious for pulmonary infarct measuring 3.5 x 2.4 cm.? Venous doppler showed? no evidence of DVT in the bilateral lower extremities.??He was admitted to the hospital and treated initially on a heparin drip.? At discharge his anticoagulaton was transitioned to apixaban. On 05/07/2022 he was seen in the emergency room with recurrence of chest pain.? Repeat CT pulmonary angiogram showed evidence of pulmonary emboli with filling defects in the main/proximal pulmonary arteries and in multiple segmental and subsegmental branches.? There is no evidence of saddle embolus.? The extent of the pulmonary embolism was noted to have increased compared to the prior study.? There was no evidence, though, of right heart strain.? At that time his apixaban dosage was increased from 5 to 10 mg twice daily, but his anticoagulation subsequently was transitioned to therapeutic Lovenox. I had seen him initially on 05/30/2022.? At that point his symptoms were improving, though he continued to have significant fatigue and significant lower extremity edema.? He was advised to continue anticoagulation with Lovenox for at least 3 months.? In the setting of known autoimmune disease, I did repeat his anticardiolipin antibody and anti-beta-2 glycoprotein I antibody studies, which did come back negative. His repeat CT pulmonary angiogram on 06/28/2022 showed significant interval i mprovement with recanalization of the previously described extensive pulmonary emboli with near complete resolution.? A few tiny residual filling defects appeared consistent with chronic thrombus.? There was no new or progressive embolus.? The lungs appeared well aerated which is slight basilar atelectasis. He had subsequently received treatment with 2 infusions of rituximab on a day 1/day 15 schedule. He tolerated that treatment with no adverse effects. Yesterday he presented to the emergency room with chest discomfort and shortness of breath. The chest discomfort had started on the right side a day and a half earlier, then got progressively worse on the left side. His CT pulmonary ang iogram showed a moderate increase in pulmonary embolic burden compared to the CT from 06/28/2022, most significantly in the lower lobes bilaterally. There were changes suggestive of developing pulmonary infarcts and there appeared to be mild right heart strain. The abdomen/pelvis showed nonocclusive right renal vein thrombosis. There were no findings on those studies to suggest underlying malignancy. His laboratory studies in the emergency room included CBC showing hemoglobin 15.9 g, white blood cell count 17,900, and platelet count 271,000. The comprehensive metabolic profile showed adequate renal function with BUN 9 and creatinine 0.8 mg/dL. His albumin level, however, had further decreased to 1.1 g/dL. TSH was mildly elevated at 7.11 ?IU/mL with free T4 low at 0.53 ng/dL. He continues to complain of severe fatigue, though he has been able to continue working. His appetite has been okay. His weight has fluctuated up and down within a 10 pound range. He has not had fever. He had 1 recent episode of significant diaphoresis. He is otherwise not had night sweating. Prior to this episode he had not been having shortness of breath, cough, or chest pain. He had no GI complaints other than occasional heartburn and somewhat loose stools. He has no complaints. He has not had any significant joint or bone pain, but recently he had developed some pretty significant muscle cramping in his lower extremities. He does not complain of headache or dizziness, and he has no focal neurologic symptoms. He reports being compliant with his Lovenox injections. He has had some bruising on the Lovenox, but no other bleeding manifestations. Review of Systems Narrative: Constitutional: He has significant fatigue, but he is still working. Appetite is okay. His weight has fluctuated up and down. No fever or night sweats. He had 1 recent episode of of significant diaphoresis. ECOG score is 1. Eyes:?No change in vision. ENMT: No hearing loss or tinnitus. No sinus congestion/drainage. No mouth sores. No sore throat or difficulty swallowing. Hematologic/Lymphatic: He has easy bruising, but no other bleeding. Respiratory: He has shortness of breath and cough. He has had a little hemoptysis, and he has had discomfort on both sides of the chest. Cardiovascular: No angina pain. No palpitations. Gastrointestinal: He has had occasional nausea and occasional heartburn. Bowels have been loose, but has not been aware of any blood in the stool or black stools. Genitourinary: No dysuria or hematuria. No urinary frequency. No urgency or incontinence. Musculoskeletal: No significant joint or bone pain, but recently has had muscle cramping in the lower extremities. Integumentary: No skin rash or other skin changes. Neurologic: No headache or dizziness. No numbness or tingling. No other focal neurologic symptoms. Psych:?No anxiety and depression. No insomnia. Medications/Allergies Home Medications Medication Instructions Recorded Confirmed Last Taken Type methimazole 5 mg tablet 5 mg PO DAILY@19 02/16/22 08/22/22 08/21/22 History olmesartan 20 mg tablet 20 mg PO DAILY 02/16/22 08/22/22 08/21/22 History spironolactone 25 mg tablet 25 mg PO QAM 02/16/22 08/22/22 08/21/22 History hydrocodone 5 mg-acetaminophen 325 1 tab PO Q6H PRN pain #14 tabs 05/07/22 08/22/22 Unknown Rx mg tablet acetaminophen 500 mg capsule 1,000 mg PO Q6H PRN Pain 05/30/22 08/22/22 Unknown History furosemide 40 mg tablet 40 mg PO EVERY OTHER DAY 05/30/22 08/22/22 08/21/22 History enoxaparin 80 mg/0.8 mL 80 mg (0.8 mL) SUBCUT Q12H #60 mL 06/13/22 08/22/22 08/22/22 Rx subcutaneous syringe Allergies Allergy/AdvReac Type Severity Reaction Status Date / Time No Known Allergies Allergy Verified 07/24/22 07:19 Current Medications Generic Name Dose Route Start Last Admin Trade Name Freq PRN Reason Stop Dose Admin Acetaminophen 650 mg 10/12/22 19:09 08/22/22 19:24 Acetaminophen 325 Mg Tablet PO 650 mg Q6H PRN Administration MILD PAIN Heparin Sodium (Porcine) 0 unit 08/22/22 10:55 08/23/22 04:57 Heparin 5,000 Unit/Ml Inj 1 Ml IV 1,600 unit PRN PRN Administration Heparin weight-base protocol Protocol Heparin Sodium/Sodium Chloride 25,000 unit in 500 mls @ 0 mls/hr 08/22/22 11:00 08/23/22 04:58 Heparin Drip IV 12 unit/kg/hr .Q0M ANNA 19.05 mls/hr Titration Protocol Per Protocol Sodium Chloride 1,000 mls @ 75 mls/hr 08/22/22 19:09 08/23/22 05:04 Sodium Chloride 0.9% IV 75 mls/hr .[id number] ANNA Administration Morphine Sulfate 2 mg 08/22/22 19:09 08/23/22 05:05 Morphine 4 Mg/Ml Sdv 1 Ml IVP 2 mg Q4H PRN Administration SEVERE PAIN PFSH Acute PFSH: Medical History (Updated 08/22/22 @ 17:29 by Franky Salazar DO) Glomerulonephritis 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 Hypertension Hyperthyroidism Pulmonary emboli Family History Father Cancer Pancreatic Other Hypertension Denies family history of Diabetes CAD (coronary artery disease) Clotting disorder Dementia Psychiatric illness Chronic kidney disease (CKD) Suicide Anesthesia complication Bleeding disorder Lung disease Stroke Social History Smoking and tobacco status: current every day smoker (0.5 ppd) cigarettes Packs smoked per day: 0.5 Alcohol intake: current Alcohol intake frequency: 0-2 Drinks per Day Alcohol type: beer Vitals/I&O/Wt Last Vital Signs Temp 98.1 F 08/22/22 09:24 Pulse 95 08/23/22 06:00 Resp 23 H 08/23/22 06:00 BP 101/83 08/23/22 06:00 Pulse Ox 96 08/23/22 06:00 O2 Del Method 08/22/22 19:30 O2 Flow Rate 3 08/22/22 20:19 08/22/22 08/23/22 08/23/22 22:59 06:59 14:59 Intake Total 1115.967 / 0857.995 2849.679 / 3165.646 Output Total 400 / 400 600 / 1000 Balance 715.967 / 812.692 1647.679 / 2165.646 Weight last 48 hrs Weight 81.647 kg Weight 79.379 kg Physical Exam Narrative: Constitutional:?He appears short of breath with effort. Eyes: Sclerae nonicteric. Conjunctivae clear. ENMT: No lesions noted in the oral cavity. Hematologic/Lymphatic: No cervical, clavicular, or axillary adenopathy. Respiratory: Lungs sound clear with diminished air movement bilaterally. Cardiovascular: Heart rhythm is regular. There is no murmur, gallop, or rub noted. Abdomen: Mildly distended but soft. Liver and spleen are not enlarged. There is no abdominal mass or ascites noted and there is no inguinal adenopathy. Extremities: He has mild lower extremity edema. Dorsalis pedis pulses are palpable bilaterally. Neurologic: No focal neurologic deficits noted. 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 He had a first episode of pulmonary embolism and February 2022, treated at that t skip with a heparin drip and subsequent transition to apixaban. His repeat CT pulmonary angiogram on 05/07/2022 showed worsening of the embolic burden despite anticoagulation.? His treatment was then changed to therapeutic Lovenox.? I was uncertain of the cause for the apixaban failure but he had negative screening for antiphospholipid antibody syndrome on 2 occasions. There was no evidence clinically for underlying malignancy. Following the episode in April, he continued anticoagulation with therapeutic Lovenox at 1 mg/kg by subcutaneous injection every [address] pulmonary angiogram in June 2022 did show almost complete resolution of the pulmonary emboli. However, he is now readmitted with significant worsening of the pulmonary embolic burden, mostly involving the lower lobes, and there is new nonocclusive thrombus involving the right renal vein. Again, the underlying c ause for his failure on anticoagulation is uncertain, as there has been no evidence for antiphospholipid antibody syndrome or underlying malignancy. He has not been evaluated for hereditary thrombophilia, but that appears to be unlikely clinically, and those conditions do not confer resistance to a nticoagulation. Given the severity of his embolic burden, I would recommend continuing anticoagulation with IV heparin for minimum of 5 days. If he is showing clinical improvement, he can then be transitioned back to Lovenox with monitoring of his anti-Xa level and maintaining his Lovenox dosage in the high therapeutic range. In the meantime, I also will try and arrange for outpatient evaluation with a clotting specialist at [facility]. Consult Attestations Medical Necessity Statement: Not applicable. Coding Level of Care Code Acute Clinical Educator for [facility] Diagnoses Pulmonary emboli I26.99
[2022-08-23 08:53] LABS: Ferritin 170 ng/mL (30-400); Iron 19 ug/dL (59-158); Percent Saturation 35.8 % (20-50); Total Iron Binding Capacity 53 mcg/dl; Unsaturated Iron Binding 34 ug/dL (112-347)
[2022-08-23] MEDS: pantoprazole DR 40 mg Tablet PO (09:06)
--- NOTE | 2022-08-23 09:37 | P.PN_ITS ---
Subjective Subjective: Elie reports he does not feel any better at this time. Still hurts quite a bit on both sides. Still short of breath. Oxygen requirement went from 2 to 4 L. Coughed up a little blood this morning. Medications: Reviewed: Yes Vitals/I&O/Wt Last Vital Signs Temp 98.1 F 08/22/22 09:24 Pulse 90 08/23/22 09:00 Resp 20 H 08/23/22 09:15 BP 115/67 08/23/22 09:00 Pulse Ox 95 08/23/22 09:15 O2 Del Method 08/23/22 09:00 O2 Flow Rate 4 08/23/22 09:00 08/22/22 08/23/22 08/23/22 22:59 06:59 14:59 Intake Total 1115.967 / 3137.528 9894.679 / 3165.646 240 / 240 Output Total 400 / 400 600 / 1000 Balance 715.967 / 056.575 4767.679 / 2165.646 240 / 240 Weight last 48 hrs Weight 81.647 kg Weight 79.379 kg Physical Exam Narrative: General exam demonstrates a white male, mild to moderate tachypnea Neck is supple no lymphadenopathy thyromegaly Cardiovascular regular rate and rhythm, without murmur Lungs clear no wheezing or crackles. Diminished breath sounds are noted bilaterally. Abdomen is soft nontender positive bowel sounds. No obvious organomegaly Extremities no cyanosis clubbing. Trace edema noted Skin no rash Data : 08/23/22 03:00 08/23/22 03:00 A&P Assessment and plan (1) Pulmonary emboli: Admission to ICU secondary to pulmonary emboli with evidence of right heart strain, potential for arrhythmia and sudden Await echocardiogram Venous duplex negative Continue anticoagulation with heparin drip Appreciate hematology consultation. Plan on heparinizing him for 5 days, then discharging on Lovenox 100 mg subcutaneous twice daily with factor Xa level done as an outpatient in approximately 2 days. Hematology is going to explore other needs Will ultimately need referral to coagulation specialty physician in [place]. Discussed with family. 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 (4) Hypertension: Hold medicines currently in the face of pulmonary embolism (5) Hyperthyroidism: Discontinue methimazole. Thyroid levels will need to be checked as an outpatient to make sure hyperthyroidism does not recur. Plan Multiple other medical problems as outlined in past medical history Full code Heparin will suffice for DVT prophylaxis May discontinue fluids at this time. Attestations Medical Necessity Statement*: Needs continued hospital stay in the ICU secondary to pulmonary embolism, with heart strain, with significant embolic burden with high risk of morbidity/mortality. Critical Care Time: The high probability of a clinically significant, sudden or life threatening deterioration of the patient's [pulmonary, vascular] system(s) required my full and direct attention, intervention and personal management. The critical care time is as shown. This time is in addition to time spent performing any reported procedures but includes the following: [x] Data and vital sign review and interpretation [x] Patient assessment, examination and intervention [x] Documentation [x] Medication orders and management Critical Care Time (min): 31 Coding Level of Care Code Acute Operations Support Analyst for [facility] [place] Diagnoses Pulmonary emboli I26.99 Renal vein occlusion I82.3 Glomerulonephritis N05.9 Hypertension I10 Hyperthyroidism E05.90
--- NOTE | 2022-08-23 09:55 | PC.CHAP ---
Pastoral Care Encounter/Spiritual Assessment Type of Contact [] Declined educational adviser visit [] Patient/Family/Request visit [] Outpatient visit [] Follow-up visit [] Physician referral [] Code/Alert [x] Routine visit [] Staff referral [] Actively dying [] Patient sleeping [] Family support [] [] Out of room [] Palliative care [] [] Receiving care in room [] Pre-surgical visit [] Trauma [] Long length of stay [x] ICU visit [] Other: Relational/Emotional Strength [] Patient feels connected with others/family/visitors/staff [] Distress [] Loneliness/isolation [] Abandonment Spirituality of Patient [] Person of [place] [] Attends Mosque of their [place] [] Believes in Prayer [] Reads Bible or Moravian materials [] There are Spiritual issues to be addressed French Comber Interventions [x] Prayer [] Active listening [] Non-anxious presence [] Spiritual/emotional support [] Crisis/trauma care [] Spiritual counseling [] Bereavement support [] Provided bereavement packet [] Provided Bible/devotional materials [] Provided toy/stuffed animal, coloring book to patient or family member [] Provided Communion [] Anointing/[place] [] Salvation [x] Completed spiritual assessment [] Other: Impact on Illness or Injury [] Angry [] Fearful [] Anxious [] Often cries [] Exhaustion [] Unable to work [] Unable to attend shinto [] Unable to walk/stand [] Unable to read [] Unable to drive [] Unable to eat/drink [] Unable to sleep [] Unable to be with family [] Patient intubated [] Other: Summary Time spent with patient
[2022-08-23 11:31] LABS: Partial Thromboplastin Time 51.2 SECONDS (23.9-36.7)
[2022-08-23] MEDS: HYDROmorphone 1 mg/mL INJ 1 mL 0.5 MG IVP ×2 (13:36→19:13)
[2022-08-23] MEDS: heparin drip 25,000 UNIT/500 ML PREMIX 21 UNIT IV (15:50)
[2022-08-23 17:18] LABS: Partial Thromboplastin Time 60.6 SECONDS (23.9-36.7)
[2022-08-23] MEDS: acetaminophen 325 mg Tablet 650 MG PO (22:09)
[2022-08-23] MEDS: cyclobenzaprine 10 mg Tablet 5 MG PO (22:58)
[2022-08-23 23:15] LABS: Partial Thromboplastin Time 62.1 SECONDS (23.9-36.7)
[2022-08-24] VITALS (35 sets, daily range): BP systolic 98–168; BP diastolic 65–110; PULSE 68–100; RESP 15–45; TEMP 36.7–39.4; O2SAT 92–97
[2022-08-24 05:11] LABS: Basophils # 0.1 10^3/uL (0.0-0.1); Basophils % 0.4 %; Eosinophils # 0.2 10^3/uL (0.0-0.8); Eosinophils % 1.4 %; Hematocrit 40.8 % (42.0-52.0); Hemoglobin 13.3 g/dL (11.7-16.6); Lymphocytes # 1.6 10^3/uL (0.8-4.8); Mean Corpuscular HGB Conc 32.6 g/dL (30.0-36.0); Mean Corpuscular Hemoglobin 33.5 pg (28.0-34.0); Mean Corpuscular Volume 102.8 fl (80-94); Mean Platelet Volume 9.4 fL (7.4-10.4); Monocytes # 1.4 10^3/uL (0.2-0.9); Monocytes % 10.9 %; Neutrophils # 9.67 10^3/uL (1.8-7.7); Neutrophils % 74.5 %; Nucleated Red Blood Cells % 0 %; Platelet Count 255 10^3/cmm (130-400); Red Blood Count 3.97 10^6/uL (4.1-5.3); Red Cell Distribution Width 14.7 % (12.1-15.1)
[2022-08-24 05:26] LABS: Partial Thromboplastin Time 62.6 SECONDS (23.9-36.7)
[2022-08-24 05:29] LABS: Alanine Aminotransferase < 5 U/L (0-41); Alkaline Phosphatase 53 U/L (40-130); Anion Gap 11.9 (5-19); Aspartate Amino Transferase 10 U/L (0-40); Blood Urea Nitrogen 9 mg/dL (6-20); Carbon Dioxide 24 mmol/L (22-29); Chloride 102 mmol/L (98-107); Glomerular Filtration Rate 123.1 mL/min (90-130); Glucose 92 mg/dL (65-115); Osmolality Calculated 276 mOsm/kg (285-295); Potassium 3.9 mmol/L (3.5-5.1); Sodium 134 mmol/L (136-145); Total Bilirubin 0.2 mg/dL (0.15-1.2); Total Protein 4.3 g/dL (6.6-8.7)
[2022-08-24 06:14] LABS: Globulin 3.6 g/dL (1.3-4.6)
[2022-08-24 06:18] LABS: Albumin Level 0.7 g/dL (3.5-5.2)
[2022-08-24] MEDS: HYDROmorphone 1 mg/mL INJ 1 mL 0.5 MG IVP ×3 (06:24→20:31)
--- NOTE | 2022-08-24 06:36 | PC.NURSE ---
Addendum entered by Alma Delia Junior RN 08/24/22 06:46: Pt coughed up another blood clot, similar in size, BP elevated now 168/110. Original Note: Pt had a coughing fit that lasted about a minute, SpO2 dropped, quarter sized blood clot was expelled into basin. SpO2 returned to 90's on 4L NC. Dr. Alcantar updated. No new orders.
--- NOTE | 2022-08-24 07:58 | PM.PN ---
Subjective Subjective: Elie reports he feels about the same today. Maybe less pain. Still short of breath when he gets up and about. Oxygen requirement has not increased. Medications: Reviewed: Yes Vitals/I&O/Wt Last Vital Signs Temp 98.1 F 08/24/22 04:42 Pulse 80 08/24/22 06:00 Resp 20 H 08/24/22 06:24 BP 136/83 08/24/22 06:00 Pulse Ox 95 08/24/22 06:24 O2 Del Method 08/24/22 06:00 O2 Flow Rate 4 08/24/22 06:00 08/23/22 08/24/22 08/24/22 22:59 06:59 14:59 Intake Total 460 / 1609.354 Output Total 700 / 700 Balance -700 / 449.354 460 / 909.354 Weight last 48 hrs Weight 87.09 kg Weight 81.647 kg Weight 79.379 kg Physical Exam Narrative: General exam demonstrates a white male, mild tachypnea. Currently on 4 L. Neck is supple no lymphadenopathy thyromegaly Cardiovascular regular rate and rhythm, without murmur Lungs clear no wheezing or crackles. Diminished breath sounds are noted bilaterally. Abdomen is soft nontender positive bowel sounds. No obvious organomegaly Extremities no cyanosis clubbing. 1+ edema noted. Skin no rash Data : 08/24/22 05:03 08/24/22 05:03 A&P Assessment and plan (1) Pulmonary emboli: May transfer out of ICU today Echocardiogram reviewed, EF 65%. Pulmonary artery pressure was normal. Venous duplex negative Continue anticoagulation with heparin drip. Plan on continuing this for 5 days. Planning on discharge for Saturday, on Lovenox. Discussed again dosing. Hematology would like him on 120 mg twice daily at discharge, close follow-up, factor Xa level in 2 days, discharged on Protonix as well for GI prophylaxis Will ultimately need referral to coagulation specialty physician in [place]. Discussed with family. 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 Lasix 40 mg IV today. He is developing some edema. Discontinue fluids completely as blood pressure is normal currently. Restart ARB today, lower dose. (4) Hypertension: Hold medicines currently in the face of pulmonary embolism (5) Hyperthyroidism: Discontinue methimazole. Thyroid levels will need to be checked as an outpatient to make sure hyperthyroidism does not recur. Plan Multiple other medical problems as outlined in past medical history Full code Heparin will suffice for DVT prophylaxis Attestations Medical Necessity Statement*: Needs continued hospitalization for anticoagulation for pulmonary embolism in face of therapeutic Lovenox. 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
[2022-08-24] MEDS: pantoprazole DR 40 mg Tablet PO (08:25)
[2022-08-24] MEDS: losartan 50 mg Tablet 25 MG PO (08:26)
[2022-08-24] MEDS: FUROsemide 10 mg/mL SDV 4mL 40 MG IVP (08:27)
--- NOTE | 2022-08-24 10:44 | PC.NURSE ---
Report called to AUDREY Mansfield. Patient to be transferred via wheelchair to room 252-1 with at side.
[2022-08-24 10:53] LABS: Partial Thromboplastin Time 49.2 SECONDS (23.9-36.7)
--- NOTE | 2022-08-24 11:32 | PM.CONSULT ---
Providers/Reason For Consult Consulting Physician/Specialty*: Becca Hameed DO, telenephrology Reason for Consult*: Membranous glomerulopathy Requesting Physician: Casper Short MD Attending Physician: Casper Short MD Primary Care Provider: Fidel Tesfaye MD History of Present Illness History of Present Illness Elie Haas is a 41 year old male admitted with recurrent PE. 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 He has been treated with ARB and rituxan. Presented with chest pain and dyspnea. Medications/Allergies Home Medications Medication Instructions Recorded Confirmed Last Taken Type methimazole 5 mg tablet 5 mg PO DAILY@19 02/16/22 08/22/22 08/21/22 History olmesartan 20 mg tablet 20 mg PO DAILY 02/16/22 08/22/22 08/21/22 History spironolactone 25 mg tablet 25 mg PO QAM 02/16/22 08/22/22 08/21/22 History hydrocodone 5 mg-acetaminophen 325 1 tab PO Q6H PRN pain #14 tabs 05/07/22 08/22/22 Unknown Rx mg tablet acetaminophen 500 mg capsule 1,000 mg PO Q6H PRN Pain 05/30/22 08/22/22 Unknown History furosemide 40 mg tablet 40 mg PO EVERY OTHER DAY 05/30/22 08/22/22 08/21/22 History enoxaparin 80 mg/0.8 mL 80 mg (0.8 mL) SUBCUT Q12H #60 mL 06/13/22 08/22/22 08/22/22 Rx subcutaneous syringe Allergies Allergy/AdvReac Type Severity Reaction Status Date / Time No Known Allergies Allergy Verified 07/24/22 07:19 Current Medications Generic Name Dose Route Start Last Admin Trade Name Freq PRN Reason Stop Dose Admin Acetaminophen 650 mg 08/22/22 19:09 08/23/22 22:09 Acetaminophen 325 Mg Tablet PO 650 mg Q6H PRN Administration MILD PAIN Cyclobenzaprine HCl 5 mg 08/23/22 22:29 08/23/22 22:58 Cyclobenzaprine 10 Mg Tablet PO 5 mg TID PRN Administration MUSCLE SPASMS Heparin Sodium (Porcine) 0 unit 08/22/22 10:55 08/23/22 12:39 Heparin 5,000 Unit/Ml Inj 1 Ml IV 1,600 unit PRN PRN Administration Heparin weight-base protocol Protocol Hydromorphone HCl 0.5 mg 08/23/22 13:27 08/24/22 11:17 Hydromorphone 1 Mg/Ml Inj 1 Ml IVP 0.5 mg Q4H PRN Administration PAIN Heparin Sodium/Sodium Chloride 25,000 unit in 500 mls @ 0 mls/hr 08/22/22 11:00 08/23/22 15:50 Heparin Drip IV 13.23 unit/kg/hr .Q0M ANNA 21 mls/hr Administration Protocol Per Protocol Losartan Potassium 25 mg 08/24/22 09:00 08/24/22 08:26 Losartan 50 Mg Tablet PO 25 mg DAILY ANNA Administration Pantoprazole Sodium 40 mg 08/23/22 09:00 08/24/22 08:[address] 40 Mg Tablet PO 40 mg DAILY ANNA Administration PFSH Acute PFSH: Medical History Glomerulonephritis 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 [facility] Hypertension Hyperthyroidism Pulmonary emboli Family History Father Cancer Pancreatic Other Hypertension Denies family history of Diabetes CAD (coronary artery disease) Clotting disorder Dementia Psychiatric illness Chronic kidney disease (CKD) Suicide Anesthesia complication Bleeding disorder Lung disease Stroke Social History Smoking and tobacco status: current every day smoker (0.5 ppd) cigarettes Packs smoked per day: 0.5 Alcohol intake: current Alcohol intake frequency: 0-2 Drinks per Day Alcohol type: beer Vitals/I&O/Wt Last Vital Signs Temp 99.1 F 08/24/22 11:14 Pulse 95 08/24/22 11:14 Resp 22 H 08/24/22 11:17 BP 112/69 08/24/22 11:14 Pulse Ox 93 08/24/22 11:14 O2 Del Method 08/24/22 11:14 O2 Flow Rate 4 08/24/22 11:14 08/23/22 08/24/22 08/24/22 22:59 06:59 14:59 Intake Total 460 / 1609.354 540 / 540 Output Total 700 / 700 Balance -700 / 449.354 460 / 909.354 540 / 540 Weight last 48 hrs Weight 87.09 kg Weight 81.647 kg Physical Exam Const: COMMON NORMALS: no acute distress and alert Neuro: SENSORIUM/ORIENTATION: Yes alert Data : 08/24/22 05:03 08/24/22 05:03 Other Labs: serum albumin 1.1, decreased 0.7 today urinalysis 3+ albumin, 3+ blood prior urine albumin/Cr ratio 4900 mg/g CT Abd/Pel: Radiologist's impression: 1.? Moderate increase in pulmonary embolic burden since 06/28/2022. This most significant progression of occlusive emboli bilaterally in the lower lobes. 2.? Mild wedge-shaped hazy attenuation at the lung bases likely due to developing pulmonary infarcts. 3.? Mild RIGHT heart strain. 4.? Nonocclusive RIGHT renal vein thrombosis. A&P Assessment and plan (1) Nephrotic syndrome: seen via telemedicine with assistance of RN at bedside Plan 1. 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 Will obtain baseline urine protein/Cr ratio and begin prednisone and tacrolimus. Increase to max ARB as tolerated by blood pressure. Continue anticoagulation. Consult Attestations Medical Necessity Statement: see above Time Spent in Patient Care: Greater than 35 minutes Coding Level of Care Code Acute Film Numberer for Cris Feliciano Diagnoses Nephrotic syndrome N04.9
[2022-08-24] MEDS: heparin 5,000 unit/mL INJ 1 mL IV (12:18)
[2022-08-24] MEDS: predniSONE 20 mg Tablet 60 MG PO (14:30)
[2022-08-24] MEDS: losartan 50 mg Tablet 100 MG PO (14:31)
[2022-08-24 14:34] LABS: Creatinine Urine, Random 120 mg/dL (39-259)
[2022-08-24 14:50] LABS: Microalbum Creatinine Ratio Ur 3450 mg/dL (0-20); Microalbumin Random Urine 414 ug/dL (0-20)
--- NOTE | 2022-08-24 15:52 | PC.NURSE ---
Dr Short notified of 102.9 temp. No new orders at this time.
[2022-08-24] MEDS: acetaminophen 325 mg Tablet 650 MG PO (15:54)
--- NOTE | 2022-08-24 15:58 | XRR_ITS ---
PROCEDURE INFORMATION: Exam: XR Chest Exam date and time: 08/24/2022 4:06 PM Age: 41 years old Clinical indication: Patient HX: HX of blood clots. Currently had bi-lat lung and kidney clots. Fever TECHNIQUE: Imaging protocol: Radiologic exam of the chest. Views: 1 view. COMPARISON: CT angio chest w abd pel w con 08/22/2022 10:24 AM FINDINGS: Lungs: Ill-defined opacities at the lung bases which may reflect atelectasis from the pleural effusions. Pleural spaces: Bilateral small volume pleural effusions. No pneumothorax. Heart/Mediastinum: Cardiomegaly. Bones/joints: Visualized osseous structures are intact. XR/XR chest 1V portable [id number] IMPRESSION: Bilateral small volume pleural effusions. Ill-defined opacities at the lung bases which may reflect atelectasis from the effusions or potentially infiltrates.
[2022-08-24] MEDS: heparin drip 25,000 UNIT/500 ML PREMIX 23 UNIT IV (16:18)
[2022-08-24] MEDS: piperacillin-tazobactam 3.375 GM in sodium chloride 0.9% (plus) 50 ML IV ×2 (16:43→23:56)
[2022-08-24 18:28] LABS: Urine Protein Random 730 mg/dL
[2022-08-24] MEDS: tacrolimus 0.5 mg Capsule 3 MG PO (18:33)
--- NOTE | 2022-08-24 19:06 | PC.NURSE ---
Patient and family had questions about the Prograf 3mg dose this nurse adminstered. All questions were answered prior to adminsteration of the drug. , Mother and patient were present at this time and all were in agreement. No further questions from the family or patient at this time.
[2022-08-24 19:17] LABS: Partial Thromboplastin Time 55.6 SECONDS (23.9-36.7)
[2022-08-24 20:40] LABS: Urine Appearance SL Hazy (CLEAR); Urine Color Yellow (Yellow)
[2022-08-24 20:41] LABS: Blood Urine 3+ (Negative); Glucose Urine UA Norm (Normal); Ketones Urine Negative (Negative); Protein Urine 3+ (Negative); pH Urine 6 (5-7)
[2022-08-24 20:42] LABS: Bilirubin Urine Neg (Negative); Leukocyte Esterase Urine Negative (Negative); Nitrate Urine Negative (Negative); Urobilinogen Urine Neg (Negative)
[2022-08-24 20:44] LABS: WBC Urine 0-4 /hpf (0-5)
[2022-08-24 20:47] LABS: Bacteria Urine 1+ /hpf
[2022-08-24 20:48] LABS: Add Urine Culture? Yes
[2022-08-24 21:33] LABS: Adenovirus Not Detected (NOT DETECT); Chlamydia Pneumoniae Not Detected (NOT DETECT); Coronavirus 229E,HKU1,NL63,OC4 Not Detected (NOT DETECT); Human Metapneumovirus Not Detected (NOT DETECT); Human Rhinovirus/Enterovirus Not Detected (NOT DETECT); Influenza A Not Detected (NOT DETECT); Influenza A H1 Not Detected (NOT DETECT); Influenza A H1-2009 Not Detected (NOT DETECT); Influenza A H3 Not Detected (NOT DETECT); Influenza B Not Detected (NOT DETECT); Mycoplasma Pneumoniae Not Detected (NOT DETECT); Parainfluenza Virus Type 1 Not Detected (NOT DETECT); Parainfluenza Virus Type 2 Not Detected (NOT DETECT); Parainfluenza Virus Type 3 Not Detected (NOT DETECT); Parainfluenza Virus Type 4 Not Detected (NOT DETECT); Respiratory Syncytial Virus A Not Detected (NOT DETECT); Respiratory Syncytial Virus B Not Detected (NOT DETECT); SARS-COV-2 Not Detected (NOT DETECT)
[2022-08-25] VITALS (53 sets, daily range): BP systolic 97–116; BP diastolic 59–71; PULSE 65–95; RESP 12–18; TEMP 36.4–36.7; O2SAT 90–95
--- NOTE | 2022-08-25 02:24 | PC.NURSE ---
Lab notified at 0207 that PTT is needed to be drawn.
--- NOTE | 2022-08-25 02:49 | PC.NURSE ---
Labs drawn by this RN at 0245 and sent to lab.
[2022-08-25 02:53] LABS: Basophils % 0.1 %; Hematocrit 39.6 % (42.0-52.0); Lymphocytes # 0.8 10^3/uL (0.8-4.8); Lymphocytes % 7.2 %; Mean Corpuscular HGB Conc 32.8 g/dL (30.0-36.0); Mean Corpuscular Hemoglobin 33.3 pg (28.0-34.0); Mean Corpuscular Volume 101.5 fl (80-94); Mean Platelet Volume 9.7 fL (7.4-10.4); Monocytes # 0.5 10^3/uL (0.2-0.9); Monocytes % 4.1 %; Neutrophils # 9.82 10^3/uL (1.8-7.7); Neutrophils % 87.6 %; Nucleated Red Blood Cells % 0 %; Platelet Count 288 10^3/cmm (130-400); Red Cell Distribution Width 14.6 % (12.1-15.1); White Blood Count 11.2 10^3/uL (4.0-10.0)
[2022-08-25 03:13] LABS: Partial Thromboplastin Time 57.6 SECONDS (23.9-36.7)
[2022-08-25 03:18] LABS: Alanine Aminotransferase 7 U/L (0-41); Albumin Level 0.9 g/dL (3.5-5.2); Alkaline Phosphatase 67 U/L (40-130); Anion Gap 12.2 (5-19); Aspartate Amino Transferase 11 U/L (0-40); Blood Urea Nitrogen 13 mg/dL (6-20); Calcium 7.7 mg/dL (8.5-10.5); Carbon Dioxide 25 mmol/L (22-29); Chloride 101 mmol/L (98-107); Globulin 3.9 g/dL (1.3-4.6); Glomerular Filtration Rate 92.1 mL/min (90-130); Glucose 142 mg/dL (65-115); Magnesium 2.5 mg/dL (1.7-2.3); Osmolality Calculated 281 mOsm/kg (285-295); Potassium 4.2 mmol/L (3.5-5.1); Sodium 134 mmol/L (136-145); Total Bilirubin 0.2 mg/dL (0.15-1.2); Total Protein 4.8 g/dL (6.6-8.7)
[2022-08-25 09:06] LABS: Partial Thromboplastin Time 52.1 SECONDS (23.9-36.7)
[2022-08-25] MEDS: predniSONE 20 mg Tablet 60 MG PO (09:21)
[2022-08-25] MEDS: pantoprazole DR 40 mg Tablet PO (09:21)
[2022-08-25] MEDS: losartan 50 mg Tablet 100 MG PO (09:21)
[2022-08-25] MEDS: piperacillin-tazobactam 3.375 GM in sodium chloride 0.9% (plus) 50 ML IV ×3 (09:22→23:39)
[2022-08-25] MEDS: tacrolimus 0.5 mg Capsule 3 MG PO ×2 (10:06→16:50)
--- NOTE | 2022-08-25 10:48 | PM.PN ---
Subjective Subjective: no new complaints Vitals/I&O/Wt Last Vital Signs Temp 97.6 F 08/25/22 08:00 Pulse 78 08/25/22 08:00 Resp 16 08/25/22 08:00 BP 110/65 08/25/22 09:21 Pulse Ox 92 08/25/22 08:00 O2 Del Method 08/25/22 08:00 O2 Flow Rate 4 08/24/22 21:15 08/24/22 08/25/22 08/25/22 22:59 06:59 14:59 Intake Total 790 / 1570 50 / 1620 Output Total 450 / 450 Balance 790 / 1570 -400 / 1170 Weight last 48 hrs Weight 85.275 kg Weight 87.09 kg Physical Exam Const: COMMON NORMALS: no acute distress and alert Neuro: SENSORIUM/ORIENTATION: Yes alert Data : 08/25/22 02:45 08/25/22 02:45 Other Labs: urine albumin/Cr 3450 mg/g, serum albumin 0.9 Micro: Microbiology 08/24/22 19:40 Occult Blood (FIT) - Final Stool 08/24/22 16:15 Blood Culture - Preliminary Blood SPECIMEN COLLECTED 08/24/22 16:10 Blood Culture - Preliminary Blood SPECIMEN COLLECTED A&P Assessment and plan (1) Nephrotic syndrome: seen via telemedicine with assistance of RN at bedside Plan 1. 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 Will obtain baseline urine protein/Cr ratio and begin prednisone and tacrolimus. Increase to max ARB as tolerated by blood pressure. Continue anticoagulation. Attestations Medical Necessity Statement*: see above Time Spent in Patient Care: 16 - 35 minutes Coding Level of Care Code Acute Jumpbasting Lining Baster for g Fwd Diagnoses Nephrotic syndrome N04.9
--- NOTE | 2022-08-25 14:05 | P.PN_ITS ---
Subjective Subjective: He is overall feeling better. He is having cough, producing some phlegm with some blood mixed in. No chest pain. No nausea vomiting. Vitals/I&O/Wt Last Vital Signs Temp 98.0 F 08/25/22 12:00 Pulse 88 08/25/22 12:00 Resp 18 08/25/22 12:00 BP 113/71 08/25/22 12:00 Pulse Ox 94 08/25/22 12:00 O2 Del Method 08/25/22 12:00 O2 Flow Rate 4 08/24/22 21:15 08/24/22 08/25/22 08/25/22 22:59 06:59 14:59 Intake Total 790 / 1570 50 / 1620 240 / 240 Output Total 450 / 450 Balance 790 / 1570 -400 / 1170 240 / 240 Weight last 48 hrs Weight 85.275 kg Weight 87.09 kg Physical Exam Narrative: Accompanied by his . Const: COMMON NORMALS: patient oriented x3 and alert GENERAL APPEARANCE: cooperative ORIENTATION/CONSCIOUSNESS: Yes awake HENMT: COMMON NORMALS: oropharynx normal Neck/C-Spine: COMMON NORMALS: no JVD Resp: COMMON NORMALS: normal respiratory effort and clear to auscultation bilaterally AUSCULTATION: clear to auscultation bilaterally Cardio: COMMON NORMALS: no JVD, regular rhythm, S1 normal heart sound present, S2 normal heart sound present and No murmurs present (Cardio) RHYTHM: regular rhythm HEART SOUNDS: S1 normal heart sound present and S2 normal heart sound present GI: COMMON NORMALS: Normal to inspection, nondistended, normoactive bowel sounds present, Soft to palpation and non-tender PALPATION: Yes Soft to palpation Extremity: COMMON NORMALS: no joint enlargement and no pedal edema Neuro: COMMON NORMALS: patient oriented x3 and moves all extremities SENSORIUM/ORIENTATION: Yes alert Skin: COMMON NORMALS: no rashes or lesions noted GENERAL SKIN EXAM: no rashes or lesions noted Data : 08/25/22 02:45 08/25/22 02:45 Micro: Microbiology 08/24/22 19:40 Occult Blood (FIT) - Final Stool 08/24/22 16:15 Blood Culture - Preliminary Blood SPECIMEN COLLECTED 08/24/22 16:10 Blood Culture - Preliminary Blood SPECIMEN COLLECTED A&P Assessment and plan (1) Pulmonary emboli: Continues to require supplemental oxygen, likely to require oxygen at discharge. Continue anticoagulation with heparin drip. Plan on continuing this for 5 days. Planning on discharge for Saturday, on Lovenox. Hematology would like him on 120 mg twice daily at discharge, close follow-up, factor Xa level in 2 days, discharged on Protonix as well for GI prophylaxis Will ultimately need referral to coagulation specialty physician in [place]. (2) Renal vein occlusion: Anticoagulation as above (3) Glomerulonephritis: Appreciate nephrology assessment, he is started on tacrolimus, prednisone. Continue ARB. Monitor blood pressure. Check lipid profile. (4) Hypertension: Losartan (5) Hyperthyroidism: Do not resume methimazole at discharge. Thyroid levels will need to be checked as an outpatient to make sure hyperthyroidism does not recur. Plan Multiple other medical problems as outlined in past medical history Full code Heparin will suffice for DVT prophylaxis Attestations Medical Necessity Statement*: Continue admission for management of PE despite anticoagulation, initiation of immunosuppression, maximization of ARB therapy. Coding Level of Care Code Acute Calibration Checker for [facility] Fwd Diagnoses Pulmonary emboli I26.99 Renal vein occlusion I82.3 Glomerulonephritis N05.9 Hypertension I10 Hyperthyroidism E05.90
[2022-08-25] MEDS: heparin drip 25,000 UNIT/500 ML PREMIX 25 UNIT IV (15:27)
[2022-08-25 16:17] LABS: Partial Thromboplastin Time 36.6 SECONDS (23.9-36.7)
[2022-08-25] MEDS: heparin 5,000 unit/mL INJ 1 mL IV (16:51)
[2022-08-25] MEDS: temazepam 15 mg Capsule PO (20:29)
[2022-08-25 23:49] LABS: Partial Thromboplastin Time 60.3 SECONDS (23.9-36.7)
--- NOTE | 2022-08-25 23:50 | PC.NURSE ---
Ptt result 60.3, Heparin Dosing Protocol no change to dose, final dose 28mL/hr. Verified with second nurse, IV pump last increased at 1640 at 28mL/hr but not documented in MAR at that time. New order for ptt lab for 0400 placed per protocol.
[2022-08-26] VITALS (15 sets, daily range): BP systolic 100–120; BP diastolic 52–73; PULSE 55–83; RESP 16–20; TEMP 36.2–36.6; O2SAT 94–96
[2022-08-26] MEDS: HYDROmorphone 1 mg/mL INJ 1 mL 0.5 MG IVP ×2 (02:37→16:22)
[2022-08-26 04:27] LABS: Basophils % 0.2 %; Hematocrit 38.1 % (42.0-52.0); Hemoglobin 12.5 g/dL (11.7-16.6); Lymphocytes # 1.4 10^3/uL (0.8-4.8); Lymphocytes % 8.3 %; Mean Corpuscular HGB Conc 32.8 g/dL (30.0-36.0); Mean Corpuscular Volume 100.5 fl (80-94); Mean Platelet Volume 9.7 fL (7.4-10.4); Monocytes % 6.4 %; Neutrophils # 13.81 10^3/uL (1.8-7.7); Neutrophils % 84.4 %; Nucleated Red Blood Cells % 0 %; Platelet Count 380 10^3/cmm (130-400); Red Blood Count 3.79 10^6/uL (4.1-5.3); Red Cell Distribution Width 14.6 % (12.1-15.1); White Blood Count 16.4 10^3/uL (4.0-10.0)
[2022-08-26 04:47] LABS: Partial Thromboplastin Time 58.1 SECONDS (23.9-36.7)
[2022-08-26 05:09] LABS: Alanine Aminotransferase 6 U/L (0-41); Albumin Level 1.2 g/dL (3.5-5.2); Alkaline Phosphatase 58 U/L (40-130); Aspartate Amino Transferase 10 U/L (0-40); Blood Urea Nitrogen 20 mg/dL (6-20); Calcium 7.7 mg/dL (8.5-10.5); Carbon Dioxide 24 mmol/L (22-29); Chloride 102 mmol/L (98-107); Cholesterol 210 mg/dL (0-200); Globulin 3.9 g/dL (1.3-4.6); Glomerular Filtration Rate 73.1 mL/min (90-130); Glucose 117 mg/dL (65-115); HDL Cholesterol 42 mg/dL (60-100); LDL Cholesterol Calculated 128 mg/dL (50-129); LDL HDL Ratio 3.05 RATIO (0.00-3.22); Osmolality Calculated 278 mOsm/kg (285-295); Sodium 132 mmol/L (136-145); Total Bilirubin 0.2 mg/dL (0.15-1.2); Total Protein 5.1 g/dL (6.6-8.7); Triglycerides 200 mg/dL (0-150)
--- NOTE | 2022-08-26 07:13 | PM.PN ---
Subjective Subjective: no new complaints Vitals/I&O/Wt Last Vital Signs Temp 97.5 F L 08/26/22 03:17 Pulse 58 L 08/26/22 06:00 Resp 16 08/26/22 03:17 BP 113/73 08/26/22 03:17 Pulse Ox 94 08/26/22 03:17 O2 Del Method 08/25/22 20:00 O2 Flow Rate 3 08/25/22 20:30 08/25/22 08/26/22 08/26/22 22:59 06:59 14:59 Intake Total 290 / 1080 50 / 1130 Output Total 300 / 300 Balance 290 / 1080 -250 / 830 Weight last 48 hrs Weight 85.275 kg Physical Exam Const: COMMON NORMALS: alert Neuro: SENSORIUM/ORIENTATION: Yes alert Data : 08/26/22 04:09 08/26/22 04:09 Micro: Microbiology 08/24/22 16:15 Blood Culture - Preliminary Blood NEGATIVE TO DATE 08/24/22 16:10 Blood Culture - Preliminary Blood NEGATIVE TO DATE A&P Assessment and plan (1) Nephrotic syndrome: seen via telemedicine with assistance of RN at bedside Plan 1. 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 Prednisone and tacrolimus added. Continue anticoagulation per hematology. Tacrolimus level in one week. Outpatient nephrology follow-up. Attestations Medical Necessity Statement*: per primary service Time Spent in Patient Care: less than 15 minutes Coding Level of Care Code Acute Human Resources Executive Assistant for Cris Feliciano Diagnoses Nephrotic syndrome N04.9
[2022-08-26] MEDS: losartan 50 mg Tablet 100 MG PO (08:27)
[2022-08-26] MEDS: tacrolimus 0.5 mg Capsule 3 MG PO ×2 (08:27→18:09)
[2022-08-26] MEDS: piperacillin-tazobactam 3.375 GM in sodium chloride 0.9% (plus) 50 ML IV ×2 (08:27→16:23)
[2022-08-26] MEDS: pantoprazole DR 40 mg Tablet PO (08:28)
[2022-08-26] MEDS: predniSONE 20 mg Tablet 60 MG PO (08:28)
[2022-08-26] MEDS: heparin drip 25,000 UNIT/500 ML PREMIX 28 UNIT IV (10:44)
[2022-08-26] MEDS: FUROsemide 10 mg/mL SDV 4mL 40 MG IVP (15:24)
[2022-08-26 15:55] LABS: Partial Thromboplastin Time 40.9 SECONDS (23.9-36.7)
[2022-08-26] MEDS: heparin 5,000 unit/mL INJ 1 mL IV (16:16)
[2022-08-26] MEDS: atorvastatin 40 mg Tablet 20 MG PO (20:23)
[2022-08-26] MEDS: cyclobenzaprine 10 mg Tablet 5 MG PO (20:30)
--- NOTE | 2022-08-26 20:31 | PM.PN ---
Subjective Subjective: Denies any new symptoms developing overnight. So far cough productive of phlegm with admixed blood has resolved. He is having swelling of lower extremities including his thighs. Vitals/I&O/Wt Last Vital Signs Temp 97.7 F 08/26/22 20:10 Pulse 62 08/26/22 20:10 Resp 18 08/26/22 20:10 BP 116/52 08/26/22 20:10 Pulse Ox 94 08/26/22 20:10 O2 Del Method 08/26/22 20:10 O2 Flow Rate 2 08/26/22 20:10 08/26/22 08/26/22 08/26/22 06:59 14:59 22:59 Intake Total 50 / 1218.75 1301.25 / 1301.25 120 / 1421.25 Output Total 300 / 300 625 / 625 625 / 1250 Balance -250 / 918.75 676.25 / 676.25 -505 / 171.25 Weight last 48 hrs Weight 84.323 kg Weight 85.275 kg Physical Exam Narrative: Accompanied by his . Const: COMMON NORMALS: patient oriented x3 and alert GENERAL APPEARANCE: cooperative ORIENTATION/CONSCIOUSNESS: Yes awake HENMT: COMMON NORMALS: oropharynx normal Neck/C-Spine: COMMON NORMALS: no JVD Resp: COMMON NORMALS: normal respiratory effort and clear to auscultation bilaterally AUSCULTATION: clear to auscultation bilaterally Cardio: COMMON NORMALS: no JVD, regular rhythm, S1 normal heart sound present, S2 normal heart sound present and No murmurs present (Cardio) RHYTHM: regular rhythm HEART SOUNDS: S1 normal heart sound present and S2 normal heart sound present GI: COMMON NORMALS: Normal to inspection, nondistended, normoactive bowel sounds present, Soft to palpation and non-tender PALPATION: Yes Soft to palpation Extremity: COMMON NORMALS: no joint enlargement GENERAL: Yes edema (2+, including trace edema of his thighs) Neuro: COMMON NORMALS: patient oriented x3 and moves all extremities SENSORIUM/ORIENTATION: Yes alert Skin: COMMON NORMALS: no rashes or lesions noted GENERAL SKIN EXAM: no rashes or lesions noted Data : 08/26/22 04:09 08/26/22 04:09 Micro: Microbiology 08/24/22 19:40 MRSA Culture - Final Nose 08/24/22 13:31 Urine Culture - Preliminary Urine,Voided 08/24/22 16:15 Blood Culture - Preliminary Blood NEGATIVE TO DATE 08/24/22 16:10 Blood Culture - Preliminary Blood NEGATIVE TO DATE A&P Assessment and plan (1) Pulmonary emboli: Continue heparin drip today through tomorrow with plan for transition to supratherapeutic Lovenox at discharge. Continues to require supplemental oxygen, likely to require oxygen at discharge. Continue anticoagulation with heparin drip. Plan on continuing this for 5 days. Planning on discharge for Saturday, on Lovenox. Hematology would like him on 120 mg twice daily at discharge, close follow-up, factor Xa level in 2 days, discharged on Protonix as well for GI prophylaxis Will ultimately need referral to coagulation specialty physician in [place]. (2) Renal vein occlusion: Anticoagulation as above (3) Glomerulonephritis: Appreciate nephrology assessment, he is started on tacrolimus, prednisone. Will need tacrolimus level in 1 week. Outpatient nephrology follow-up. Continue ARB. Monitor blood pressure. Discussed with him abnormal lipid profile, ASCVD risk, he is agreeable to start moderate intensity statin. (4) Hypertension: Losartan (5) Hyperthyroidism: Do not resume methimazole at discharge. Thyroid levels will need to be checked as an outpatient to make sure hyperthyroidism does not recur. Plan Multiple other medical problems as outlined in past medical history Full code Heparin will suffice for DVT prophylaxis Attestations Medical Necessity Statement*: Continue anticoagulation given coagulopathy and thrombosis despite Lovenox anticoagulation, discharge planning. Coding Level of Care Code Acute Motor Express Clerk [facility] Diagnoses Pulmonary emboli I26.99 Renal vein occlusion I82.3 Glomerulonephritis N05.9 Hypertension I10 Hyperthyroidism E05.90
[2022-08-26 22:27] LABS: Partial Thromboplastin Time 86.3 SECONDS (23.9-36.7)
[2022-08-27] VITALS (9 sets, daily range): BP systolic 103–130; BP diastolic 56–77; PULSE 48–77; RESP 16–20; TEMP 36.3–36.6; O2SAT 90–96
--- NOTE | 2022-08-27 00:04 | PC.NURSE ---
Heparin drip titrated down to 28 mL/hr from 31 mL/hr following PTT per protocol.
[2022-08-27] MEDS: piperacillin-tazobactam 3.375 GM in sodium chloride 0.9% (plus) 50 ML IV ×2 (00:53→09:26)
[2022-08-27 05:56] LABS: Basophils % 0.1 %; Eosinophils % 0.1 %; Hematocrit 34.2 % (42.0-52.0); Lymphocytes # 1.3 10^3/uL (0.8-4.8); Lymphocytes % 9.8 %; Mean Corpuscular HGB Conc 32.2 g/dL (30.0-36.0); Mean Corpuscular Hemoglobin 32.7 pg (28.0-34.0); Mean Corpuscular Volume 101.8 fl (80-94); Monocytes # 0.9 10^3/uL (0.2-0.9); Neutrophils # 11.07 10^3/uL (1.8-7.7); Neutrophils % 82.5 %; Nucleated Red Blood Cells % 0 %; Platelet Count 379 10^3/cmm (130-400); Red Blood Count 3.36 10^6/uL (4.1-5.3); Red Cell Distribution Width 14.9 % (12.1-15.1); White Blood Count 13.4 10^3/uL (4.0-10.0)
[2022-08-27 06:10] LABS: Partial Thromboplastin Time 56.4 SECONDS (23.9-36.7)
[2022-08-27] MEDS: heparin drip 25,000 UNIT/500 ML PREMIX 28 UNIT IV (06:22)
[2022-08-27 06:25] LABS: Alanine Aminotransferase 8 U/L (0-41); Albumin Level 1.5 g/dL (3.5-5.2); Alkaline Phosphatase 57 U/L (40-130); Aspartate Amino Transferase 10 U/L (0-40); Blood Urea Nitrogen 24 mg/dL (6-20); Calcium 7.4 mg/dL (8.5-10.5); Carbon Dioxide 23 mmol/L (22-29); Chloride 105 mmol/L (98-107); Globulin 3.1 g/dL (1.3-4.6); Glomerular Filtration Rate 73.1 mL/min (90-130); Glucose 137 mg/dL (65-115); Osmolality Calculated 284 mOsm/kg (285-295); Sodium 134 mmol/L (136-145); Total Bilirubin 0.2 mg/dL (0.15-1.2); Total Protein 4.6 g/dL (6.6-8.7)
[2022-08-27] MEDS: pantoprazole DR 40 mg Tablet PO (09:24)
[2022-08-27] MEDS: losartan 50 mg Tablet 100 MG PO (09:24)
[2022-08-27] MEDS: tacrolimus 0.5 mg Capsule 3 MG PO (09:25)
[2022-08-27] MEDS: predniSONE 20 mg Tablet 60 MG PO (09:25)
[2022-08-27 11:23] LABS: Partial Thromboplastin Time 47.7 SECONDS (23.9-36.7)
[2022-08-27] MEDS: heparin 5,000 unit/mL INJ 1 mL IV (11:50)
--- NOTE | 2022-08-27 12:24 | P.DS_ITS ---
Discharge Providers Date of Admission: 08/22/22 19:09 Date of Discharge: August 27, 2022 Attending Provider at Admission: Casper Short MD Attending Provider at Discharge: Gordy Daniels MD Consults: Nephrology: Telemetry nephrology Hematology: Dr. 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 He reports the pain is similar to what he had when he had pulmonary emboli.? He reports he has been consistent with taking his Lovenox 80 mg twice daily and has not missed any doses recently.? He reports he is still getting treatment for glomerulonephropathy/glomerulonephritis and has been on Rituxan, with his last infusion about a month ago.? He denies any recent fevers, cough.? No blood in stool or black or tarry stool.? Only will have a darker stool. Hospital Course Hospital Course Patient was admitted to hospital further evaluation and management. On admission CTA chest abdomen pelvis was done which demonstrated increasing pulmonary emboli burden since June 28, possible developing of pulmonary infarcts, mild right heart strain, right nonocclusive renal vein thrombosis. Given his history of being on Lovenox as an outpatient hematology was consulted for possible failure of anticoagulation. He was started on IV heparin as per hematology recommendation. He has finished a course of being on IV heparin for 5 days and has been transitioned over to higher dose of Lovenox of 1.5 mg/kg body weight every 12 hourly. Given his history of glomerulonephritis based on previous biopsy result on Rituxan as an outpatient nephrology was consulted. Given prothrombotic tendencies from Rituxan his medication was changed to Prograf and prednisone. Patient's hospitalization was otherwise unremarkable. Home O2 evaluation was done prior to discharge and he has remained on room air. He is been discharged hemodynamic stable condition on Lovenox 1.5 mg/kg body weight every 12 hourly along with Prograf and prednisone. He is to follow-up with his primary care provider, Dr. 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 He is to repeat a Prograf level within next 1 week. Care plan was discussed in detail with patient and patient's family on discharge and all questions were answered. Physical Exam Narrative: Accompanied by his . Const: COMMON NORMALS: patient oriented x3 and alert GENERAL APPEARANCE: cooperative ORIENTATION/CONSCIOUSNESS: Yes awake HENMT: COMMON NORMALS: oropharynx normal Neck/C-Spine: COMMON NORMALS: no JVD Resp: COMMON NORMALS: normal respiratory effort and clear to auscultation bilaterally AUSCULTATION: clear to auscultation bilaterally Cardio: COMMON NORMALS: no JVD, regular rhythm, S1 normal heart sound present, S2 normal heart sound present and No murmurs present (Cardio) RHYTHM: regular rhythm HEART SOUNDS: S1 normal heart sound present and S2 normal heart sound present GI: COMMON NORMALS: Normal to inspection, nondistended, normoactive bowel sounds present, Soft to palpation and non-tender PALPATION: Yes Soft to palpation Extremity: COMMON NORMALS: no joint enlargement and no pedal edema GENERAL: Yes edema (2+, including trace edema of his thighs) Neuro: COMMON NORMALS: patient oriented x3 and moves all extremities SENSORIUM/ORIENTATION: Yes alert Skin: COMMON NORMALS: no rashes or lesions noted GENERAL SKIN EXAM: no rashes or lesions noted Discharge Data Studies Completed and Pending Completed Studies During Hospitalization Category Date Time Status CTA chest CT abdomen pelvis [CT angio chest w abd pel w Cat Scan 08/22/22 09:59 Completed con] Stat XR chest 1V portable [id number] Routine Exams 08/24/22 15:58 [place] [id number] Routine Ultrasound 08/22/22 19:09 Completed CV. echo complete* [id number] Routine Ultrasound 08/22/22 19:09 Completed Pending at discharge Category Date Time Status Blood Culture Stat Lab 08/24/22 16:15 Results Complete Blood Count w/Auto AM LABS Lab 08/28/22 04:00 Ordered Comprehensive Metabolic Panel AM LABS Lab 08/28/22 04:00 Ordered Heparin XA Low Molecular Routine Lab 08/24/22 10:31 Received Radiology Impressions Chest/Abdomen/Pelvis CT 08/22/22 09:59 IMPRESSION: 1. Moderate increase in pulmonary embolic burden since 06/28/2022. This most significant progression of occlusive emboli bilaterally in the lower lobes. 2. Mild wedge-shaped hazy attenuation at the lung bases likely due to developing pulmonary infarcts. 3. Mild RIGHT heart strain. 4. Nonocclusive RIGHT renal vein thrombosis. 5. No additional acute abnormalities in the abdomen and pelvis. Notified Franky Salazar DO at 08/22/2022 10:54 AM. Chest X-Ray 08/24/22 15:58 IMPRESSION: Bilateral small volume pleural effusions. Ill-defined opacities at the lung bases which may reflect atelectasis from the effusions or potentially infiltrates. Echocardiogram: CONCLUSIONS ?1. Normal left ventricular size, systolic function and wall ?thickness, with no regional wall motion abnormalities. Left ?ventricular ejection fraction is estimated at 65 %. Normal ?diastolic function. ?2. No significant valvular abnormality. ?3. Normal pulmonary artery pressure. ?4. When compared to study dated 03/02/22, pulmonary artery ?pressure has decreased. ?Victoria Smith MD ?(Electronically Signed) ?Final Date:? ? ? 23 August 2022 ? 13:27 Laboratory Results WBC 13.4 10^3/uL (4.0-10.0) H 08/27/22 05:20 RBC 3.36 10^6/uL (4.1-5.3) L 08/27/22 05:20 Hgb 11.0 g/dL (11.7-16.6) L 08/27/22 05:20 Hct 34.2 % (42.0-52.0) L 08/27/22 05:20 MCV 101.8 fl (80-94) H 08/27/22 05:20 MCH 32.7 pg (28.0-34.0) 08/27/22 05:20 MCHC 32.2 g/dL (30.0-36.0) 08/27/22 05:20 RDW 14.9 % (12.1-15.1) 08/27/22 05:20 Plt Count 379 10^3/cmm (130-400) 08/27/22 05:20 MPV 10.0 fL (7.4-10.4) 08/27/22 05:20 Neut % (Auto) 82.5 % 08/27/22 05:20 Lymph % (Auto) 9.8 % 08/27/22 05:20 [place] % (Auto) 7.0 % 08/27/22 05:20 Eos % (Auto) 0.1 % 08/27/22 05:20 Baso % (Auto) 0.1 % 08/27/22 05:20 Neut # (Auto) 11.07 10^3/uL (1.8-7.7) H 08/27/22 05:20 Lymph # (Auto) 1.3 10^3/uL (0.8-4.8) 08/27/22 05:20 [place] # (Auto) 0.9 10^3/uL (0.2-0.9) 08/27/22 05:20 Eos # (Auto) 0.0 10^3/uL (0.0-0.8) 08/27/22 05:20 Baso # (Auto) 0.0 10^3/uL (0.0-0.1) 08/27/22 05:20 Nucleated RBC % (auto) 0 % 08/27/22 05:20 Nucleated RBCs # 0.0 /100WBC 08/27/22 05:20 PT 14.40 SECONDS (12.1-14.9) 08/22/22 16:15 INR 1.09 (0.8-1.2) 08/22/22 16:15 APTT 47.7 SECONDS (23.9-36.7) H 08/27/22 10:15 Heparin Anti-Xa, LM Wt Cancelled 08/22/22 10:00 Sodium 134 mmol/L (136-145) L 08/27/22 05:20 Potassium 4.0 mmol/L (3.5-5.1) 08/27/22 05:20 Chloride 105 mmol/L (98-107) 08/27/22 05:20 Carbon Dioxide 23 mmol/L (22-29) 08/27/22 05:20 Anion Gap 10.0 (5-19) 08/27/22 05:20 BUN 24 mg/dL (6-20) H 08/27/22 05:20 Creatinine 1.1 mg/dL (0.7-1.2) 08/27/22 05:20 GFR Calculation 73.1 mL/min (90-130) L 08/27/22 05:20 Glucose 137 mg/dL (65-115) H 08/27/22 05:20 Calculated Osmolality 284 mOsm/kg (285-295) L 08/27/22 05:20 Calcium 7.4 mg/dL (8.5-10.5) L 08/27/22 05:20 Magnesium 2.5 mg/dL (1.7-2.3) H 08/25/22 02:45 Iron 19 ug/dL (59-158) L 08/23/22 03:00 TIBC 53 mcg/dl 08/23/22 03:00 % Saturation 35.8 % (20-50) 08/23/22 03:00 Unsat Iron Binding 34 ug/dL (112-347) L 08/23/22 03:00 Ferritin 170 ng/mL (30-400) 08/23/22 03:00 Total Bilirubin 0.2 mg/dL (0.15-1.2) 08/27/22 05:20 AST 10 U/L (0-40) 08/27/22 05:20 ALT 8 U/L (0-41) 08/27/22 05:20 Alkaline Phosphatase 57 U/L (40-130) 08/27/22 05:20 Troponin T Gen 5 ng/L 6 ng/L (0-15) 08/22/22 10:03 Total Protein 4.6 g/dL (6.6-8.7) L 08/27/22 05:20 Albumin 1.5 g/dL (3.5-5.2) L 08/27/22 05:20 Globulin 3.1 g/dL (1.3-4.6) 08/27/22 05:20 Triglycerides 200 mg/dL (0-150) H 08/26/22 04:09 Cholesterol 210 mg/dL (0-200) H 08/26/22 04:09 LDL Cholesterol, Calc 128 mg/dL (50-129) 08/26/22 04:09 HDL Cholesterol 42 mg/dL (60-100) L 08/26/22 04:09 LDL/HDL Ratio 3.05 RATIO (0.00-3.22) 08/26/22 04:09 Cholesterol/HDL Ratio 5.00 mg/dL (1.0-5.00) 08/26/22 04:09 Lipase 20 U/L (13-60) 08/22/22 10:03 TSH 7.11 uIU/mL (0.27-4.20) H 08/22/22 10:03 Free T4 0.53 ng/dL (0.82-1.77) L 08/22/22 10:03 Free T3 2.3 PG/ML (2.0-4.4) 08/22/22 10:03 Urine Color Yellow (Yellow) 08/24/22 13:31 Urine Appearance Sl hazy (CLEAR) A 08/24/22 13:31 Urine pH 6 (5-7) 08/24/22 13:31 Ur Specific [place] 1.010 (1.005-1.030) 08/24/22 13:31 Urine Protein 3+ (Negative) H 08/24/22 13:31 Urine Glucose (UA) Norm (Normal) 08/24/22 13:31 Urine Ketones Negative (Negative) 08/24/22 13:31 Urine Blood 3+ (Negative) H 08/24/22 13:31 Urine Nitrate Negative (Negative) 08/24/22 13:31 Urine Bilirubin Neg (Negative) 08/24/22 13:31 Urine Urobilinogen Neg mg/dL (Negative) 08/24/22 13:31 Ur Leukocyte Esterase Negative (Negative) 08/24/22 13:31 Urine RBC 10-15 /hpf (0-2) H 08/24/22 13:31 Urine WBC 0-4 /hpf (0-5) H 08/24/22 13:31 Ur Squamous Epith Cells None /hpf (0-5) 08/24/22 13:31 Amorphous Sediment Not Reportable 08/24/22 13:31 Urine Bacteria 1+ /hpf (NONE) H 08/24/22 13:31 Coarse Granular Casts 0-4 /lpf H 08/22/22 21:51 Ur Random Microalbumin 414 ug/dL (0-20) H 08/24/22 13:31 U Random Total Protein 730 mg/dL 08/24/22 13:31 Urine Creatinine 120 mg/dL (39-259) 08/24/22 13:31 Microalb/Creat Ratio 3450 mg/dL (0-20) H 08/24/22 13:31 Coronavirus 229E (PCR) Not detected (NOT DETECT) 08/24/22 19:40 SARS-CoV-2 (PCR) Not detected (NOT DETECT) 08/24/22 19:40 Vitals Last Vital Signs Temp 97.8 F 08/27/22 11:06 Pulse 75 08/27/22 11:06 Resp 20 H 08/27/22 11:06 BP 130/71 08/27/22 11:06 Pulse Ox 93 08/27/22 11:06 O2 Del Method 08/27/22 09:46 O2 Flow Rate 2 08/27/22 08:00 Discharge Plan Discharge Patient Disposition: Home Condition: Stable Prescriptions: New prednisone 20 mg Tablet 60 mg PO DAILY 14 Days Qty: 42 0RF enoxaparin [Lovenox] 120 mg/0.8 mL syringe 120 mg SUBCUT Q12H 30 Days Qty: 48 0RF tacrolimus 0.5 mg Capsule 3 mg PO BID 30 Days Qty: 360 0RF atorvastatin 40 mg Tablet 40 mg PO BEDTIME Qty: 30 0RF Continued acetaminophen 500 mg capsule 1,000 mg PO Q6H PRN (Reason: Pain) hydrocodone-acetaminophen 5-325 mg tablet 1 tab PO Q6H PRN (Reason: pain) Qty: 14 0RF Changed furosemide 40 mg tablet 20 mg PO EVERY OTHER DAY PRN (Reason: Lower limb swelling) Qty: 10 0RF olmesartan 20 mg tablet 40 mg PO DAILY Qty: 60 0RF Discontinued enoxaparin 80 mg/0.8 mL syringe 80 mg SUBCUT Q12H Qty: 60 1RF spironolactone 25 mg tablet 25 mg PO QAM methimazole 5 mg tablet 5 mg PO DAILY@19 Discharge Orders: Discharge Order (Routine); Ordered 08/27/22 Ordered By: Gordy Daniels Referrals: Fidel Tesfaye MD [Primary Care Provider] - 4-7 days Ayaan Lowry MD [Hospitalist] - 4-7 days Discharge Diet: Cardiac Discharge Activity: Resume usual activity and Increase activity as tolerated Patient Instructions: Opioid Safety Activity Restrictions/Additional Instructions: Please follow-up with a primary care provider within next 1 week. Please follow-up with Dr. Lowry within next 1 week. You should have a Prograf level done within next 1 week. Methimazole has been stopped. We should repeat your thyroid panel within next 1 month before initiation of medication. Please follow-up with your refinery operator light ends recovery within next 10 days. Dose of Lovenox has been changed to 120 mg twice a day. Dose of olmesartan has been increased to 40 mg daily. For now do not take spironolactone and Lasix. Lasix has been changed to as needed basis for lower limb swelling. Discharge Attestations Time Spent in Discharge Care*: greater than 30 min Specific Discharge Activities: educating patient, educating and/or supporting family/caregiver, discussing with pcp/other providers, discussing with foster care case manager/social workers/dc planners, documenting/other paperwork and evaluating patient/reviewing data Status at Discharge: Cognitive status at discharge: cognitively intact , Behavioral status at discharge: cooperative , Functional status at discharge: independent ambulation , Overall status at discharge: patient is progressing back to baseline Quality Metrics Clinical Quality Measures [ Venous Thromboembolism { Contraindication to Overlap Therapy: None; Overlap threrpy ordered; VTE Discharge Education: Education about anticoagulant therapy/Care Notes given; Deep Vein Thrombosis/Pulmonary Embolism Present on Admission: Yes;}] Coding Level of Care Code Acute Chg FW DC note History Comprehensive Exam Comprehensive Medical Decision Making High Complexity Diagnoses Pulmonary emboli I26.99 Renal vein occlusion I82.3 Glomerulonephritis N05.9 Hypertension I10 Hyperthyroidism E05.90
[2022-08-27 15:04] LABS: Heparin XA Low Molecular <0.20 IU/mL
== END 2022-08-27 16:30 | disposition home or self-care (01) | DRG 176 ==
LOC: ER 17:29 → ICU 08-23 06:13 → MEDSURG 08-24 10:57
PROVIDERS: Internal Medicine; Admitting Provider Internal Medicine; Emergency Provider Family Medicine; PCP Family Medicine; Visit Provider Student in an Organized Health Care Education/Training Program
DX: I26.99 Other pulmonary embolism without acute cor pulmonale (principal); I82.3 Embolism and thrombosis of renal vein; N04.9 Nephrotic syndrome with unspecified morphologic changes; N05.9 Unspecified nephritic syndrome with unspecified morphologic changes; I10 Essential (primary) hypertension; Z79.69 Long term (current) use of other immunomodulators and immunosuppressants; E05.90 Thyrotoxicosis, unspecified without thyrotoxic crisis or storm; F17.210 Nicotine dependence, cigarettes, uncomplicated; Z79.891 Long term (current) use of opiate analgesic; Z79.01 Long term (current) use of anticoagulants
CPT/HCPCS: 36415; 71045; 71275; 74177; 80048; 80053; 80061; 81001; 82044; 82274; 82728; 83540; 83550; 83690; 83735; 84156; 84439; 84443; 84481; 84484; 85025; 85049; 85520; 85610; 85730; 87040; 87086; 87635; 87641; 93005; 93306; 93970; 94760; 96365; 96366; 96375; 96376; 99285; J1170; J1644; J1940; J2270; J2543; J7030; J7507; J7512; Q3014; Q9967

== ENCOUNTER 2022-08-29 10:33 | Outpatient (CLI) | payer BC, SELFPAY ==
[2022-09-01 08:17] LABS: Heparin XA Low Molecular >2.00 IU/mL
== END 2022-08-29 10:34 | disposition home or self-care (01) ==
LOC: LAB 10:37
PROVIDERS: PCP Family Medicine; Visit Provider Internal Medicine Medical Oncology
DX: I26.99 Other pulmonary embolism without acute cor pulmonale (principal)
CPT/HCPCS: 85520

== ENCOUNTER 2022-08-31 05:17 | Outpatient (CLI) | payer BC, SELFPAY ==
[2022-08-31 06:06] LABS: Basophils # 0.1 10^3/uL (0.0-0.1); Basophils % 0.4 %; Eosinophils # 0.2 10^3/uL (0.0-0.8); Eosinophils % 1.5 %; Hematocrit 40.3 % (42.0-52.0); Hemoglobin 13.5 g/dL (11.7-16.6); Lymphocytes # 4.3 10^3/uL (0.8-4.8); Lymphocytes % 31.7 %; Mean Corpuscular HGB Conc 33.5 g/dL (30.0-36.0); Mean Corpuscular Hemoglobin 33.8 pg (28.0-34.0); Mean Corpuscular Volume 100.8 fl (80-94); Mean Platelet Volume 9.3 fL (7.4-10.4); Monocytes # 1.4 10^3/uL (0.2-0.9); Monocytes % 10.5 %; Neutrophils # 7.39 10^3/uL (1.8-7.7); Neutrophils % 54.1 %; Nucleated Red Blood Cells % 0 %; Platelet Count 649 10^3/cmm (130-400); Red Cell Distribution Width 14.3 % (12.1-15.1); White Blood Count 13.6 10^3/uL (4.0-10.0)
== END 2022-08-31 05:18 | disposition home or self-care (01) ==
PROVIDERS: PCP Family Medicine; Visit Provider Internal Medicine Medical Oncology
DX: N07 Hereditary nephropathy, not elsewhere classified (principal)
CPT/HCPCS: 80197; 85025

== ENCOUNTER → 2022-09-04 09:16 | Outpatient (BNVA) | payer BC, SELFPAY | PROVIDERS: PCP Family Medicine; Visit Provider Family Medicine | DX: I26.99 Other pulmonary embolism without acute cor pulmonale (principal) | CPT/HCPCS: 80053 ==

== ENCOUNTER 2022-09-06 10:41 | Outpatient (CLI) | payer BC, SELFPAY ==
[2022-09-06 11:34] LABS: Alanine Aminotransferase 15 U/L (0-41); Alkaline Phosphatase 59 U/L (40-130); Anion Gap 9.5 (5-19); Aspartate Amino Transferase 13 U/L (0-40); Blood Urea Nitrogen 9 mg/dL (6-20); Calcium 7.9 mg/dL (8.5-10.5); Carbon Dioxide 29 mmol/L (22-29); Chloride 104 mmol/L (98-107); Globulin 2.7 g/dL (1.3-4.6); Glomerular Filtration Rate 123.1 mL/min (90-130); Glucose 106 mg/dL (65-115); Osmolality Calculated 287 mOsm/kg (285-295); Potassium 3.5 mmol/L (3.5-5.1); Sodium 139 mmol/L (136-145); Total Bilirubin 0.2 mg/dL (0.15-1.2); Total Protein 4.7 g/dL (6.6-8.7)
[2022-09-10 13:13] LABS: Heparin XA Low Molecular 1.87 IU/mL
== END 2022-09-06 10:42 | disposition home or self-care (01) ==
LOC: LAB 10:42
PROVIDERS: PCP Family Medicine; Visit Provider Internal Medicine Medical Oncology
DX: I26.99 Other pulmonary embolism without acute cor pulmonale (principal)
CPT/HCPCS: 80053; 85520

== ENCOUNTER 2022-09-13 07:43 | Oncology outpatient (recurring) (ONCR) | payer BC, SELFPAY ==
[2022-09-13 08:08] LABS: Basophils % 0.2 %; Eosinophils % 0.2 %; Hematocrit 41.3 % (42.0-52.0); Hemoglobin 13.3 g/dL (11.7-16.6); Lymphocytes # 2.9 10^3/uL (0.8-4.8); Lymphocytes % 19.4 %; Mean Corpuscular HGB Conc 32.2 g/dL (30.0-36.0); Mean Corpuscular Hemoglobin 31.9 pg (28.0-34.0); Mean Platelet Volume 10.1 fL (7.4-10.4); Monocytes # 1.1 10^3/uL (0.2-0.9); Monocytes % 7.2 %; Neutrophils # 10.92 10^3/uL (1.8-7.7); Neutrophils % 72.5 %; Nucleated Red Blood Cells % 0 %; Platelet Count 298 10^3/cmm (130-400); Red Blood Count 4.17 10^6/uL (4.1-5.3); Red Cell Distribution Width 13.7 % (12.1-15.1); White Blood Count 15.1 10^3/uL (4.0-10.0)
== END 2022-10-10 23:59 | disposition home or self-care (01) ==
PROVIDERS: PCP Family Medicine; Visit Provider Internal Medicine Medical Oncology
DX: I26.99 Other pulmonary embolism without acute cor pulmonale (principal); N05.9 Unspecified nephritic syndrome with unspecified morphologic changes; Z79.899 Other long term (current) drug therapy
CPT/HCPCS: 36415; 80197; 85025

== ENCOUNTER 2022-09-20 05:31 | Outpatient (CLI) | payer BC, SELFPAY ==
--- NOTE | 2022-09-20 06:30 | CT_ITS ---
WS: [id number] CT CHEST ANGIOGRAPHY WITH REFORMATS HISTORY: Follow-up for pulmonary emboli TECHNIQUE: Contiguous axial images are obtained through the chest during arterial injection of intrav enous contrast. Images are reconstructed to evaluate the pulmonary arteries. MIP imaging also reviewe d. All CT scans at [facility] use at least one of these dose optimization techniques: automat ed exposure control; mA and/or kV adjustment per patient size (includes targeted exams where dose is matched to clinical indication); or iterative reconstruction. CONTRAST: Omnipaque 350; 72 mL IV. DLP: 509.52 mGy.cm COMPARISON: 08/22/2022 Significant improvement in the pulmonary embolic burden since 08/22/2022. No occlusive emboli are amber ntified. There are a few residual acute appearing emboli and branching points bilaterally in the lowe r lobes. None of these are occlusive. The main pulmonary artery is normal size. There is mild diffuse hazy attenuation throughout both lungs which is probably due to poor inspiratio n. Additional benign granulomata. Mild round to wedge-shaped opacification with central cavitation a t the LEFT lung base is reidentified. This has slightly progressed since the prior study and is consi stent with a small peripheral pulmonary infarct. Very mild atherosclerosis aorta. No adenopathy. Moderate enlargement the LEFT heart chambers. No RIGH T heart strain. No pericardial or pleural effusion. Small hiatal hernia. No adrenal abnormalities. The visualized kidneys are negative. Increase in thoracic kyphosis with moderate spondylitic changes in the central thoracic spine. CT/CT angio chest PE protcl [id number] IMPRESSION: 1. Significant improvement in the pulmonary embolic burden with near complete resolution. 2. Small LEFT lower lobe peripheral pulmonary infarct. 3. No adenopathy. 4. Moderate LEFT heart enlargement. 5. Please note this chest CT angiogram is not adequate to reevaluate the renal vein thrombosis that was previously described.
[2022-09-20] MEDS: iohexol 350 mg/mL 500 mL Btl (per mL) IV (06:35)
== END 2022-09-20 05:32 | disposition home or self-care (01) ==
LOC: RAD 05:34
PROVIDERS: PCP Family Medicine; Visit Provider Internal Medicine Medical Oncology
DX: I26.99 Other pulmonary embolism without acute cor pulmonale (principal); I51.7 Cardiomegaly
CPT/HCPCS: 71275

== ENCOUNTER 2022-09-20 06:01 | Outpatient (CLI) | payer BC, SELFPAY ==
[2022-09-20 11:05] LABS: Basophils # 0.1 10^3/uL (0.0-0.1); Basophils % 0.5 %; Eosinophils # 0.2 10^3/uL (0.0-0.8); Eosinophils % 1.2 %; Hematocrit 40.4 % (42.0-52.0); Hemoglobin 13.3 g/dL (11.7-16.6); Lymphocytes # 4.6 10^3/uL (0.8-4.8); Lymphocytes % 32.3 %; Mean Corpuscular HGB Conc 32.9 g/dL (30.0-36.0); Mean Corpuscular Hemoglobin 32.9 pg (28.0-34.0); Monocytes # 0.9 10^3/uL (0.2-0.9); Monocytes % 6.5 %; Neutrophils % 57.8 %; Nucleated Red Blood Cells % 0 %; Platelet Count 315 10^3/cmm (130-400); Red Blood Count 4.04 10^6/uL (4.1-5.3); Red Cell Distribution Width 13.6 % (12.1-15.1); White Blood Count 14.4 10^3/uL (4.0-10.0)
[2022-09-20 11:19] LABS: D Dimer <= 0.27 ug/mIFEU (0-0.59)
[2022-09-20 11:24] LABS: Slide Review Slide Review Perform
[2022-09-24 12:17] LABS: Heparin XA Low Molecular >2.00 IU/mL
== END 2022-09-20 06:02 | disposition home or self-care (01) ==
LOC: LAB 06:02
PROVIDERS: Internal Medicine Medical Oncology; PCP Family Medicine; Visit Provider Internal Medicine Nephrology
DX: N07 Hereditary nephropathy, not elsewhere classified (principal); R80.1 Persistent proteinuria, unspecified; I26.99 Other pulmonary embolism without acute cor pulmonale
CPT/HCPCS: 36415; 80197; 85025; 85378; 85520

== ENCOUNTER 2022-09-27 07:23 | Outpatient (CLI) | payer BC, SELFPAY ==
[2022-09-27 07:55] LABS: Basophils # 0.1 10^3/uL (0.0-0.1); Basophils % 0.4 %; Eosinophils % 0.2 %; Hematocrit 44.7 % (42.0-52.0); Hemoglobin 15.1 g/dL (11.7-16.6); Lymphocytes # 2.8 10^3/uL (0.8-4.8); Lymphocytes % 17.5 %; Mean Corpuscular HGB Conc 33.8 g/dL (30.0-36.0); Mean Corpuscular Hemoglobin 33.1 pg (28.0-34.0); Mean Platelet Volume 9.7 fL (7.4-10.4); Monocytes % 6.3 %; Neutrophils % 74.1 %; Nucleated Red Blood Cells % 0 %; Platelet Count 471 10^3/cmm (130-400); Red Blood Count 4.56 10^6/uL (4.1-5.3); Red Cell Distribution Width 13.5 % (12.1-15.1); White Blood Count 16.2 10^3/uL (4.0-10.0)
[2022-10-01 14:12] LABS: Heparin XA Low Molecular 1.98 IU/mL
== END 2022-09-27 07:24 | disposition home or self-care (01) ==
PROVIDERS: PCP Family Medicine; Visit Provider Internal Medicine Medical Oncology
DX: I26.99 Other pulmonary embolism without acute cor pulmonale (principal)
CPT/HCPCS: 85025; 85378; 85520

== ENCOUNTER 2022-10-11 07:12 | Outpatient (CLI) | payer BC, SELFPAY ==
[2022-10-11 07:56] LABS: Basophils # 0.1 10^3/uL (0.0-0.1); Basophils % 0.5 %; Eosinophils # 0.2 10^3/uL (0.0-0.8); Eosinophils % 1.9 %; Hematocrit 45.4 % (42.0-52.0); Hemoglobin 14.9 g/dL (11.7-16.6); Lymphocytes # 3.6 10^3/uL (0.8-4.8); Lymphocytes % 37.5 %; Mean Corpuscular HGB Conc 32.8 g/dL (30.0-36.0); Mean Corpuscular Volume 100.7 fl (80-94); Mean Platelet Volume 9.6 fL (7.4-10.4); Monocytes # 1.1 10^3/uL (0.2-0.9); Monocytes % 11.7 %; Neutrophils % 47.5 %; Nucleated Red Blood Cells % 0 %; Platelet Count 391 10^3/cmm (130-400); Red Blood Count 4.51 10^6/uL (4.1-5.3); Red Cell Distribution Width 13.7 % (12.1-15.1); White Blood Count 9.5 10^3/uL (4.0-10.0)
[2022-10-11 08:13] LABS: D Dimer 0.29 ug/mIFEU (0-0.59)
[2022-10-11 08:16] LABS: Albumin Level 2.6 g/dL (3.5-5.2); Anion Gap 13.5 (5-19); Blood Urea Nitrogen 7 mg/dL (6-20); Calcium 10.4 mg/dL (8.5-10.5); Carbon Dioxide 26 mmol/L (22-29); Chloride 103 mmol/L (98-107); Glucose 100 mg/dL (65-115); Phosphorus 6.5 mg/dL (2.5-4.5); Potassium 4.5 mmol/L (3.5-5.1); Sodium 138 mmol/L (136-145); Urine Creatinine 179 mg/dL (39-259)
[2022-10-11 08:36] LABS: Total Protein, Random Urine 553.2 mg/dL (0.0-20.0)
[2022-10-16 11:39] LABS: Heparin XA Low Molecular 1.71 IU/mL
== END 2022-10-11 07:13 | disposition home or self-care (01) ==
PROVIDERS: Internal Medicine Medical Oncology; PCP Family Medicine; Visit Provider Internal Medicine Nephrology
DX: I26.99 Other pulmonary embolism without acute cor pulmonale (principal); N07 Hereditary nephropathy, not elsewhere classified; R80.1 Persistent proteinuria, unspecified; N04.2 Nephrotic syndrome with diffuse membranous glomerulonephritis
CPT/HCPCS: 80069; 80197; 82570; 84156; 85025; 85378; 85520

== ENCOUNTER 2022-11-06 07:15 | Outpatient (CLI) | payer BC, SELFPAY ==
[2022-11-06 07:45] LABS: Basophils # 0.1 10^3/uL (0.0-0.1); Basophils % 0.6 %; Eosinophils # 0.1 10^3/uL (0.0-0.8); Eosinophils % 1.7 %; Hematocrit 46.5 % (42.0-52.0); Hemoglobin 15.7 g/dL (11.7-16.6); Mean Corpuscular HGB Conc 33.8 g/dL (30.0-36.0); Mean Corpuscular Hemoglobin 32.7 pg (28.0-34.0); Mean Corpuscular Volume 96.9 fl (80-94); Mean Platelet Volume 9.9 fL (7.4-10.4); Monocytes # 0.7 10^3/uL (0.2-0.9); Monocytes % 8.4 %; Neutrophils # 4.42 10^3/uL (1.8-7.7); Neutrophils % 52.9 %; Nucleated Red Blood Cells % 0 %; Platelet Count 330 10^3/cmm (130-400); Red Cell Distribution Width 13.1 % (12.1-15.1); White Blood Count 8.3 10^3/uL (4.0-10.0)
[2022-11-06 07:56] LABS: D Dimer <= 0.27 ug/mIFEU (0-0.59)
[2022-11-06 08:04] LABS: Albumin Level 2.7 g/dL (3.5-5.2); Anion Gap 10.8 (5-19); Blood Urea Nitrogen 10 mg/dL (6-20); Calcium 9.9 mg/dL (8.5-10.5); Carbon Dioxide 26 mmol/L (22-29); Chloride 104 mmol/L (98-107); Glomerular Filtration Rate 81.2 mL/min (90-130); Glucose 109 mg/dL (65-115); Phosphorus 4.3 mg/dL (2.5-4.5); Potassium 4.8 mmol/L (3.5-5.1); Sodium 136 mmol/L (136-145)
[2022-11-06 08:05] LABS: Urine Creatinine 55 mg/dL (39-259)
[2022-11-06 08:24] LABS: UPRO/UCREAT Ratio 5.71 mg/mg CR; Urine Protein Random 314 mg/dL
[2022-11-09 14:05] LABS: Heparin XA Low Molecular 1.75 IU/mL
== END 2022-11-06 07:16 | disposition home or self-care (01) ==
LOC: LAB 07:19
PROVIDERS: Internal Medicine Medical Oncology; PCP Family Medicine; Visit Provider Internal Medicine Nephrology
DX: I26.99 Other pulmonary embolism without acute cor pulmonale (principal); Z79.899 Other long term (current) drug therapy
CPT/HCPCS: 36415; 80069; 82570; 84156; 85025; 85378; 85520

== ENCOUNTER 2022-11-20 07:32 | Outpatient (CLI) | payer BC, SELFPAY ==
[2022-11-20 08:02] LABS: Basophils # 0.1 10^3/uL (0.0-0.1); Basophils % 0.8 %; Eosinophils # 0.3 10^3/uL (0.0-0.8); Eosinophils % 3.2 %; Hematocrit 44.4 % (42.0-52.0); Hemoglobin 14.4 g/dL (11.7-16.6); Lymphocytes # 3.6 10^3/uL (0.8-4.8); Lymphocytes % 42.5 %; Mean Corpuscular HGB Conc 32.4 g/dL (30.0-36.0); Mean Corpuscular Hemoglobin 31.8 pg (28.0-34.0); Mean Platelet Volume 9.8 fL (7.4-10.4); Monocytes # 0.8 10^3/uL (0.2-0.9); Monocytes % 9.7 %; Neutrophils # 3.72 10^3/uL (1.8-7.7); Neutrophils % 43.6 %; Nucleated Red Blood Cells % 0 %; Platelet Count 378 10^3/cmm (130-400); Red Blood Count 4.53 10^6/uL (4.1-5.3); Red Cell Distribution Width 13.1 % (12.1-15.1); White Blood Count 8.5 10^3/uL (4.0-10.0)
[2022-11-20 08:21] LABS: D Dimer <= 0.27 ug/mIFEU (0-0.59)
[2022-11-23 11:00] LABS: Heparin XA Low Molecular 1.63 IU/mL
== END 2022-11-20 07:33 | disposition home or self-care (01) ==
LOC: LAB 07:36
PROVIDERS: PCP Family Medicine; Visit Provider Internal Medicine Medical Oncology
DX: I26.99 Other pulmonary embolism without acute cor pulmonale (principal)
CPT/HCPCS: 36415; 85025; 85378; 85520

== ENCOUNTER 2022-12-18 07:11 | Outpatient (CLI) | payer BC, SELFPAY ==
[2022-12-18 07:50] LABS: Basophils # 0.1 10^3/uL (0.0-0.1); Basophils % 1.1 %; Eosinophils # 0.3 10^3/uL (0.0-0.8); Eosinophils % 3.5 %; Hematocrit 46.7 % (42.0-52.0); Hemoglobin 15.4 g/dL (11.7-16.6); Lymphocytes # 2.9 10^3/uL (0.8-4.8); Lymphocytes % 36.2 %; Mean Corpuscular Hemoglobin 31.6 pg (28.0-34.0); Mean Corpuscular Volume 95.7 fl (80-94); Monocytes # 0.8 10^3/uL (0.2-0.9); Monocytes % 9.6 %; Neutrophils # 3.98 10^3/uL (1.8-7.7); Neutrophils % 49.4 %; Nucleated Red Blood Cells % 0 %; Platelet Count 350 10^3/cmm (130-400); Red Blood Count 4.88 10^6/uL (4.1-5.3); Red Cell Distribution Width 13.4 % (12.1-15.1); White Blood Count 8.1 10^3/uL (4.0-10.0)
[2022-12-18 08:05] LABS: D Dimer <= 0.27 ug/mIFEU (0-0.59)
[2022-12-18 08:19] LABS: Creatinine Urine, Random 26 mg/dL (39-259)
[2022-12-18 10:06] LABS: Microalbum Creatinine Ratio Ur 2500 mg/dL (0-20); Microalbumin Random Urine 65 ug/dL (0-20)
[2022-12-21 12:15] LABS: Heparin XA Low Molecular 1.93 IU/mL
== END 2022-12-18 07:12 | disposition home or self-care (01) ==
PROVIDERS: Internal Medicine Medical Oncology; PCP Family Medicine; Visit Provider Registered Nurse
DX: I26.99 Other pulmonary embolism without acute cor pulmonale (principal)
CPT/HCPCS: 36415; 80197; 82044; 85025; 85378; 85520

== ENCOUNTER 2023-01-02 07:42 | Outpatient (CLI) | payer BC, SELFPAY ==
[2023-01-02] MEDS: iohexol 350 mg/mL 500 mL Btl (per mL) IV (08:06)
--- NOTE | 2023-01-02 09:30 | CT_ITS ---
WS: [id number] CTA CHEST AND ABDOMEN TECHNIQUE: Noncontrast plus contrast enhanced CTA of the chest and abdomen with coronal and sagittal reformatted images and additional MIP Images. CLINICAL INFORMATION: pulmonary emboli, renal vein occlusion COMPARISON: CTA 09/20/2022 and 08/22/2022 DLP: 600.[address] scans at [facility] use at least one of these dose optimization techniques: automated e xposure control; mA and/or kV adjustment per patient size (includes targeted exams where dose is matc hed to clinical indication); or iterative reconstruction. FINDINGS: Proximal pulmonary arteries are normal. Normal segmental and subsegmental pulmonary arteries. Resolut ion of previously described pulmonary emboli. No evidence of new or progressed pulmonary embolus. Sli ght hazy atelectasis in the lung bases. Resolving LEFT lower lobe pulmonary infarcts. Wedge-shaped op acity in the RIGHT middle lobe measuring 7 mm is stable. A few calcified granulomas. Normal caliber t horacic aorta. No axillary lymphadenopathy. No mediastinal or hilar lymphadenopathy. Cardiomegaly. Diffuse fatty infiltration liver. Hepatomegaly. Normal spleen. Small esophageal hiatal hernia. Adrenal glands are normal. Normal renal parenchymal enhancement. Previous described LEFT jesus l vein thrombus not visualized today and appears to have resolved. Normal caliber abdominal aorta. Ce liac and SMA are patent. Normal pancreas. Portal vein and splenic vein. Normal SMV. Chronic anterior wedging in the mid and lower thoracic spine. Shallow inspiration. Partially visualized spondylolysis L4-L5 CT/CT angio chest abdomen IMPRESSION: 1. Resolved pulmonary emboli. No evidence of new or progressed pulmonary embol us. 2. RIGHT renal vein thrombosis has resolved. 3. Diffuse fatty infiltration liver. 4. Resolving LEFT lower lobe pulmonary infarct. 5. Diffuse fatty infiltration liver with hepatomegaly. 6. Small esophageal hiatal hernia.
== END 2023-01-02 07:43 | disposition home or self-care (01) ==
LOC: RAD 07:43
PROVIDERS: PCP Family Medicine; Visit Provider Internal Medicine Medical Oncology
DX: I26.99 Other pulmonary embolism without acute cor pulmonale (principal); I82.3 Embolism and thrombosis of renal vein
CPT/HCPCS: 71275; 74175; Q9967

== ENCOUNTER 2023-01-18 07:09 | Outpatient (CLI) | payer BC, SELFPAY ==
[2023-01-18 07:57] LABS: Basophils # 0.1 10^3/uL (0.0-0.1); Basophils % 0.6 %; Eosinophils # 0.2 10^3/uL (0.0-0.8); Eosinophils % 1.8 %; Hematocrit 45.7 % (42.0-52.0); Hemoglobin 15.1 g/dL (11.7-16.6); Lymphocytes # 3.7 10^3/uL (0.8-4.8); Lymphocytes % 41.3 %; Mean Corpuscular Hemoglobin 31.7 pg (28.0-34.0); Mean Corpuscular Volume 95.8 fl (80-94); Mean Platelet Volume 9.7 fL (7.4-10.4); Monocytes # 0.6 10^3/uL (0.2-0.9); Neutrophils # 4.37 10^3/uL (1.8-7.7); Neutrophils % 48.9 %; Nucleated Red Blood Cells % 0 %; Platelet Count 373 10^3/cmm (130-400); Red Blood Count 4.77 10^6/uL (4.1-5.3); Red Cell Distribution Width 13.2 % (12.1-15.1)
[2023-01-18 09:21] LABS: D Dimer <= 0.27 ug/mIFEU (0-0.59)
[2023-01-23 12:25] LABS: Heparin XA Low Molecular 0.74 IU/mL
== END 2023-01-18 07:10 | disposition home or self-care (01) ==
PROVIDERS: PCP Family Medicine; Visit Provider Internal Medicine Medical Oncology
DX: I26.99 Other pulmonary embolism without acute cor pulmonale (principal)
CPT/HCPCS: 36415; 85025; 85378; 85520

== ENCOUNTER 2023-02-05 07:12 | Outpatient (CLI) | payer BC, SELFPAY ==
[2023-02-05 07:46] LABS: Basophils # 0.1 10^3/uL (0.0-0.1); Basophils % 0.9 %; Eosinophils # 0.2 10^3/uL (0.0-0.8); Eosinophils % 2.6 %; Hematocrit 46.1 % (42.0-52.0); Hemoglobin 15.3 g/dL (11.7-16.6); Lymphocytes # 3.4 10^3/uL (0.8-4.8); Mean Corpuscular HGB Conc 33.2 g/dL (30.0-36.0); Mean Corpuscular Hemoglobin 31.5 pg (28.0-34.0); Mean Corpuscular Volume 95.1 fl (80-94); Mean Platelet Volume 10.2 fL (7.4-10.4); Monocytes # 0.6 10^3/uL (0.2-0.9); Monocytes % 8.3 %; Neutrophils % 43.9 %; Nucleated Red Blood Cells % 0 %; Platelet Count 294 10^3/cmm (130-400); Red Blood Count 4.85 10^6/uL (4.1-5.3); Red Cell Distribution Width 13.5 % (12.1-15.1); White Blood Count 7.7 10^3/uL (4.0-10.0)
[2023-02-05 08:07] LABS: Albumin Level 3.4 g/dL (3.5-5.2); Blood Urea Nitrogen 9 mg/dL (6-20); Calcium 8.2 mg/dL (8.5-10.5); Carbon Dioxide 29 mmol/L (22-29); Chloride 104 mmol/L (98-107); Glucose 96 mg/dL (65-115); Phosphorus 3.6 mg/dL (2.5-4.5); Sodium 141 mmol/L (136-145)
[2023-02-05 08:31] LABS: Urine Creatinine 129 mg/dL (39-259)
[2023-02-05 08:38] LABS: Calcium 8.2 mg/dL (8.5-10.5)
[2023-02-05 08:44] LABS: Parathyroid Hormone 58.6 pg/mL (15-65)
[2023-02-05 08:47] LABS: UPRO/UCREAT Ratio 2.05 mg/mg CR; Urine Protein Random 265 mg/dL
[2023-02-10 14:15] LABS: Phospholipase A2 Elisa IgG <4 RU/mL; Phospholipase A2 IFA AB NEGATIVE (NEGATIVE)
== END 2023-02-05 07:13 | disposition home or self-care (01) ==
LOC: LAB 07:14
PROVIDERS: PCP Family Medicine; Visit Provider Registered Nurse
DX: Z01.89 Encounter for other specified special examinations (principal)
CPT/HCPCS: 36415; 80069; 80197; 82310; 82570; 83520; 83970; 84156; 85025; 86255

== ENCOUNTER 2023-06-25 06:35 | Outpatient (CLI) | payer BC, SELFPAY ==
[2023-06-25 07:34] LABS: Urine Creatinine 172 mg/dL (39-259)
[2023-06-25 07:52] LABS: UPRO/UCREAT Ratio 4.15 mg/mg CR
[2023-06-25 08:10] LABS: Anion Gap 10.4 (5-19); Blood Urea Nitrogen 8 mg/dL (6-20); Carbon Dioxide 29 mmol/L (22-29); Chloride 105 mmol/L (98-107); Glomerular Filtration Rate 146.4 mL/min (90-130); Glucose 101 mg/dL (65-115); Osmolality Calculated 288 mOsm/kg (285-295); Potassium 4.4 mmol/L (3.5-5.1); Sodium 140 mmol/L (136-145)
== END 2023-06-25 06:36 | disposition home or self-care (01) ==
PROVIDERS: PCP Family Medicine; Visit Provider Registered Nurse
DX: N07 Hereditary nephropathy, not elsewhere classified (principal)
CPT/HCPCS: 36415; 80048; 82570; 84156

== ENCOUNTER 2023-06-26 10:33 | Oncology outpatient (recurring) (ONCR) | payer BC, SELFPAY | END 2023-07-11 23:59 | disposition home or self-care (01) | LOC: ONCMED 10:34 | PROVIDERS: PCP Family Medicine; Visit Provider Internal Medicine Medical Oncology | DX: N00-N99 Diseases of the genitourinary system (principal) ==

== ENCOUNTER 2023-07-25 07:06 | Outpatient (CLI) | payer BC, SELFPAY ==
[2023-07-25 07:52] LABS: Blood Urea Nitrogen 12 mg/dL (6-20); Calcium 8.7 mg/dL (8.5-10.5); Carbon Dioxide 27 mmol/L (22-29); Chloride 102 mmol/L (98-107); Glomerular Filtration Rate 122.5 mL/min (90-130); Glucose 75 mg/dL (65-115); Osmolality Calculated 282 mOsm/kg (285-295); Sodium 137 mmol/L (136-145)
[2023-07-25 07:52] LABS: Urine Creatinine 216 mg/dL (39-259)
[2023-07-25 07:53] LABS: Anion Gap 12.2 (5-19); Potassium 4.2 mmol/L (3.5-5.1)
[2023-07-25 08:07] LABS: UPRO/UCREAT Ratio 3.12 mg/mg CR; Urine Protein Random > 673 mg/dL
== END 2023-07-25 07:07 | disposition home or self-care (01) ==
PROVIDERS: PCP Family Medicine; Visit Provider Registered Nurse
DX: N07 Hereditary nephropathy, not elsewhere classified (principal)
CPT/HCPCS: 36415; 80048; 82570; 84156

== ENCOUNTER 2023-07-30 07:02 | Outpatient (CLI) | payer BC, SELFPAY | END 2023-07-30 07:03 | disposition home or self-care (01) | PROVIDERS: PCP Family Medicine; Visit Provider Registered Nurse | DX: Z01.89 Encounter for other specified special examinations (principal) | CPT/HCPCS: 36415; 80197 ==

== ENCOUNTER 2024-01-21 07:03 | Oncology outpatient (recurring) (ONCR) | payer BC, SELFPAY ==
[2024-01-21 07:23] LABS: Total Volume, Urine 1000 mL
[2024-01-21 07:36] LABS: D Dimer 0.54 ug/mLFEU (0-0.59)
[2024-01-21 07:43] LABS: Basophils # 0.1 10^3/uL (0.0-0.1); Basophils % 0.8 %; Eosinophils # 0.3 10^3/uL (0.0-0.8); Eosinophils % 3.1 %; Hematocrit 53.6 % (37-53); Lymphocytes % 34.6 %; Mean Corpuscular HGB Conc 33.4 g/dL (30-55); Mean Corpuscular Hemoglobin 32.8 pg (27-33); Mean Corpuscular Volume 98.3 fl (82-101); Mean Platelet Volume 9.9 fL (7.4-10.4); Monocytes # 0.9 10^3/uL (0.2-0.9); Monocytes % 9.8 %; Neutrophils # 4.45 10^3/uL (1.8-7.7); Neutrophils % 51.4 %; Nucleated Red Blood Cells % 0 %; Platelet Count 291 10^3/cmm (157-399); Red Blood Count 5.45 10^6/uL (3.85-5.65); Red Cell Distribution Width 14.1 % (12.1-15.1); White Blood Count 8.67 10^3/uL (3.29-11.43)
[2024-01-21 07:44] LABS: Alanine Aminotransferase 11 U/L (0-41); Albumin Level 2.1 g/dL (3.5-5.2); Alkaline Phosphatase 58 U/L (40-130); Anion Gap 10.4 (5-19); Aspartate Amino Transferase 23 U/L (0-40); Blood Urea Nitrogen 7 mg/dL (6-20); Calcium 8.5 mg/dL (8.5-10.5); Carbon Dioxide 30 mmol/L (22-29); Chloride 101 mmol/L (98-107); Globulin 2.6 g/dL (1.3-4.6); Glucose 95 mg/dL (65-115); Osmolality Calculated 282 mOsm/kg (285-295); Potassium 4.4 mmol/L (3.5-5.1); Sodium 137 mmol/L (136-145); Total Bilirubin 0.3 mg/dL (0.15-1.2); Total Protein 4.7 g/dL (6.6-8.7)
[2024-01-21 07:47] LABS: Lactate Dehydrogenase 177 U/L (135-225)
[2024-01-21 07:48] LABS: Erythrocyte Sedimentation Rate 4 mm/hr (0-10)
[2024-01-21 08:21] LABS: Urine Total Protein 237.4 mg/dL (0-150)
== END 2024-02-09 23:59 | disposition home or self-care (01) ==
PROVIDERS: PCP Family Medicine; Visit Provider Internal Medicine Medical Oncology
DX: N00-N99 Diseases of the genitourinary system (principal); I26.99 Other pulmonary embolism without acute cor pulmonale
CPT/HCPCS: 36415; 80053; 80197; 83615; 84156; 85025; 85378; 85651; 86140

== ENCOUNTER 2024-03-02 17:08 | Emergency (ER) | payer BC, SELFPAY ==
[2024-03-02] VITALS (11 sets, daily range): BP systolic 101–141; BP diastolic 63–91; PULSE 70–91; RESP 16–20; TEMP 36.6; O2SAT 94–99
--- NOTE | 2024-03-02 17:45 | ECG_ITS ---
[facility] Test Date: 2024-03-02 Pat Name: Elie Haas Department: Room: Gender: Male Digital [employer] Intern: : 1980 Requested By: Franky Santana Order Number: [id number] Jeffrey MD: Makayla Flores M.D. Measurements Intervals [place] Rate: 94 P: 48 NV: 138 QRS: -37 QRSD: 95 T: 30 QT: 339 QTc: 424 Interpretive Statements SINUS RHYTHM LEFT AXIS DEVIATION [QRS AXIS < -30] Compared to ECG 08/22/2022 11:18:13 Incomplete right bundle-branch block no longer present Electronically Signed On 03-03-2024 21:45:01 CDT by Makayla Flores M.D. [id number] f
--- NOTE | 2024-03-02 17:55 | USR_ITS ---
PROCEDURE INFORMATION: Exam: US Duplex Left Upper Extremity Arteries Exam date and time: 03/02/2024 7:48 PM Age: 43 years old Clinical indication: Arm, lower; Patient HX: The entire left ulnar artery is monophasic and damped. Sudden onset following a coughing fit at 1530 today, left distal arm pain commenced at 1600. History of clotting disorder. History of pulmonary emboli. Takes lovenox prophylactically. ; Additional info: Cool, numb left arm, history of pe TECHNIQUE: Imaging protocol: Left Real-time ultrasound scan of the arteries of the left upper extremity with 2-D sommers scale, color Doppler flow and spectral waveform analysis. COMPARISON: CT angio chest abd [id number] 01/02/2023 8:06 AM FINDINGS: Left subclavian artery: No occlusion or significant stenosis. Normal waveform. Left axillary artery: No occlusion or significant stenosis. Normal waveform. Left brachial artery: No occlusion or significant stenosis. Normal waveform. Left radial artery: No occlusion or significant stenosis. Normal waveform. Left ulnar artery: No occlusion. There is decreased/dampened monophasic flow in the left ulnar artery along its course with a velocity of 10 cm/second along its course. Soft tissues: Unremarkable. US/[place] [id number] IMPRESSION: 1. No acute occlusion identified. 2. There is decreased monophasic flow in the left ulnar artery along its course with a velocity of 10 cm/second. These findings imply advanced inflow disease at the level of the proximal ulnar artery. A high-grade stenosis is possible at or near its origin.
--- NOTE | 2024-03-02 17:56 | XRR_ITS ---
PROCEDURE INFORMATION: Exam: XR Chest Exam date and time: 03/02/2024 5:58 PM Age: 43 years old Clinical indication: Pain; Chest pressure; Additional info: Shortness of breath TECHNIQUE: Imaging protocol: Radiologic exam of the chest. Views: 1 view. COMPARISON: [place]d [id number] 01/02/2023 8:06 AM FINDINGS: Lungs: Multiple calcified granulomas are again demonstrated, better assessed on prior comparative cross-sectional examination. Pleural spaces: Unremarkable. No pleural effusion. No pneumothorax. Heart/Mediastinum: Unremarkable. No cardiomegaly. Bones/joints: Unremarkable. XR/XR chest 1V [id number] IMPRESSION: No acute cardiopulmonary findings.
--- NOTE | 2024-03-02 18:14 | W.ED.CHESTPA ---
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 He said he had some upper respiratory symptoms. Congestion and cough. Had some chest pain this morning that has since gotten better. No neck pain. No nausea or vomiting. No abdominal pain. Review of Systems Narrative: Constitutional symptoms: Negative except as documented in HPI. Skin symptoms: Negative except as documented in HPI. Eye symptoms: Negative except as documented in HPI. ENMT symptoms: Negative except as documented in HPI. Respiratory symptoms: Negative except as documented in HPI. Cardiovascular symptoms: Negative except as documented in HPI. Gastrointestinal symptoms: Negative except as documented in HPI. Genitourinary symptoms: Negative except as documented in HPI. Musculoskeletal symptoms: Negative except as documented in HPI. Neurologic symptoms: Negative except as documented in HPI. Psychiatric symptoms: Negative except as documented in HPI. Endocrine symptoms: Negative except as documented in HPI. PFS ED PFSH: Medical History Nephrotic syndrome Glomerulonephritis 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 [facility] Hypertension Hyperthyroidism Pulmonary emboli Family History Father Cancer Pancreatic Other Hypertension Denies family history of Diabetes CAD (coronary artery disease) Clotting disorder Dementia Psychiatric illness Chronic kidney disease (CKD) Suicide Anesthesia complication Bleeding disorder Lung disease Stroke Social History Smoking and tobacco/nicotine status: current every day tobacco/nicotine user (10 cigs per day, smoked x 20 years) cigarettes Packs smoked per day: 0.5 Alcohol intake: current Alcohol intake frequency: 0-2 Drinks per Day Alcohol type: beer Physical Exam Narrative: EXAM NARRATIVE: General: Alert, no acute distress. Skin: Warm, dry. Head: Normocephalic, atraumatic. Neck: Supple, trachea midline. Eye: Extraocular movements are intact. Ears, nose, mouth and throat: mucosa moist. Cardiovascular: Regular, Normal peripheral perfusion. Respiratory: Lungs are clear to auscultation, respirations are non-labored, breath sounds are equal, Symmetrical chest wall expansion. Gastrointestinal: Soft, Nontender, Non distended, Normal bowel sounds. Musculoskeletal: Normal ROM, no deformity. Neurological: Alert and oriented, No focal neurological deficit observed. Psychiatric: Cooperative, appropriate mood & affect. Course Vital Signs: Vital signs: Vital Signs Temperature 98 F 03/02/24 17:12 Pulse Rate 81 03/02/24 21:06 Respiratory Rate 16 03/02/24 21:06 Blood Pressure 134/91 03/02/24 21:06 Pulse Oximetry 94 03/02/24 18:20 Oxygen Delivery Me thod Room Air 03/02/24 18:20 MDM - Chest Pain Medical Decision Making Medical decision making: Differential diagnosis including but not limited to and based on the above HPI, review of systems and physical exam: Ultrasound of the left upper extremity was ordered because of school and numb and painful. Chest x-ray. Basic lab work. Orders placed to evaluate differential diagnosis based on the above differential, HPI and physical exam Lab Review: Laboratory results were reviewed and interpreted by myself the emergency room physician. Patient does have some leukocytosis with a white count of 17,000. Hemoglobin is 18.5. BUN and creatinine are 6 and 0.5. He is BUN and creatinine previously has been fairly normal. No signs of renal failure for some time now. Chest x-ray: No acute process. No infiltrate. No pneumothorax. No cardiomegaly. This was reviewed and interpreted by myself the ER physician. EKG: Time 171 rate 94 normal sinus rhythm, No ST-T changes, no ectopy, normal CT & QRS intervals, This was reviewed and interpreted by myself the ER physician at 1715. Repeat EKG: Time 2102 rate 82 normal sinus rhythm, No ST-T changes, no ectopy, normal CT & QRS intervals, This was reviewed and interpreted by myself the ER physician at 2107. Arterial ultrasound: Monophasic decreased flow to the ulnar artery and palmar arch. The rest of the vasculature in the arm is biphasic and open. Discussed CTA, family is very worried about contrast. Ultimately I discussed with the vascular surgeon and a CTA will be done at [facility] upon the patient's arrival to the emergency room. Consultation: I spoke with Dr. Parth Noriega with vascular at [facility]. He recommends a CTA of course and transfer to a tertiary care hospital given the patient's need for hematology likely and nephrology. Consultation: Spoke with Dr. Figueroa, vascular surgeon at [facility]. She has accepted the patient to the emergency room. I also spoke with the emergency room doctor on-call, Dr. Davey. He accepted the patient as well. I reviewed the patient's medical record. Reexamination: Patient remained stable. Morphine has helped his pain some. No increased work of breathing. No altered mental status. No focal motor deficits. Lab Data 03/02/24 18:29 03/02/24 18:29 Radiology Impressions Chest X-Ray 03/02/24 17:56 IMPRESSION: No acute cardiopulmonary findings. Laboratory Results WBC 16.90 10^3/uL (3.29-11.43) H 03/02/24 18: RBC 5.70 10^6/uL (3.85-5.65) H 03/02/24 18: Hgb 18.50 g/dL (11.27-16.99) H 03/02/24 18: Hct 54.9 % (37-53) H 03/02/24 18: MCV 96.3 fl (82-101) 03/02/24 18: MCH 32.5 pg (27-33) 03/02/24 18: MCHC 33.7 g/dL (30-55) 03/02/24 18: RDW 14.5 % (12.1-15.1) 03/02/24 18: Plt Count 305 10^3/cmm (157-399) 03/02/24 18: MPV 9.6 fL (7.4-10.4) 03/02/24 18: Neut % (Auto) 80.8 % 03/02/24 18: Lymph % (Auto) 12.2 % 03/02/24 18: Nance % (Auto) 5.4 % 03/02/24 18: Eos % (Auto) 0.8 % 03/02/24 18: Baso % (Auto) 0.4 % 03/02/24 18: Neut # (Auto) 13.64 10^3/uL (1.8-7.7) H 03/02/24 18: Lymph # (Auto) 2.1 10^3/uL (0.8-4.8) 03/02/24 18:29 Nance # (Auto) 0.9 10^3/uL (0.2-0.9) 03/02/24 18: Eos # (Auto) 0.1 10^3/uL (0.0-0.8) 03/02/24 18: Baso # (Auto) 0.1 10^3/uL (0.0-0.1) 03/02/24 18: Nucleated RBC % (auto) 0 % 03/02/24 18: Nucleated RBCs # 0.0 /100WBC 03/02/24 18: Sodium 140 mmol/L (136-145) 03/02/24 18: Potassium 4.1 mmol/L (3.5-5.1) 03/02/24 18: Chloride 110 mmol/L (98-107) H 03/02/24 18: Carbon Dioxide 24 mmol/L (22-29) 03/02/24 18: Anion Gap 10.1 (5-19) 03/02/24 18: BUN 6 mg/dL (6-20) 03/02/24 18: Creatinine 0.5 mg/dL (0.7-1.2) L 03/02/24 18: GFR Calculation 179.8 mL/min (90-130) H 03/02/24 18: Glucose 94 mg/dL (65-115) 03/02/24 18: Calculated Osmolality 287 mOsm/kg (285-295) 03/02/24 18: Calcium 7.8 mg/dL (8.5-10.5) L 03/02/24 18: Total Bilirubin 0.2 mg/dL (0.15-1.2) 03/02/24 18: AST 25 U/L (0-40) 03/02/24 18: ALT 18 U/L (0-41) 03/02/24 18: Alkaline Phosphatase 66 U/L (40-130) 03/02/24 18:29 Troponin T Baseline < 6 ng/L (0-15) 03/02/24 18: Troponin T 120 Minute 6.00 ng/L (0-15) 03/02/24 20:45 Delta Troponin T 0.80259 ABS# (0-10) 03/02/24 20:45 C-Reactive Protein 3.0 mg/L (0.0-4.9) 03/02/24 18:29 Total Protein 4.3 g/dL (6.6-8.7) L 03/02/24 18:29 Albumin 2.2 g/dL (3.5-5.2) L 03/02/24 18:29 Globulin 2.1 g/dL (1.3-4.6) 03/02/24 18:29 All radiology interpretation(s) finalized by discharge Other Data Assessment and plan: Arterial occlusion of the forearm Clotting disorder -Patient is being transferred to a tertiary care center for vascular surgery evaluation and, and possible hematology and nephrology consultation. -Patient is already on Lovenox. CTA needs to be done which will be done at the ER in [place]. - Discussed findings and plan with patient. Answered any questions. - All laboratory values were reviewed and interpreted personally by myself, the ER physician - All imaging was reviewed and interpreted personally by myself, the ER physician. - Evaluation and treatment of this problem were appropriate in the emergency setting -I spent a total of >35 minutes of critical care time managing the patient, independent of any other practitioner. -The time involved in the performance of separately reportable procedures was not counted towards critical care time. 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
--- NOTE | 2024-03-02 18:31 | PC.NURSE ---
LEFT RADIAL PULSE +2 STRONG AND BOUNDING.
[2024-03-02 18:54] LABS: Basophils # 0.1 10^3/uL (0.0-0.1); Basophils % 0.4 %; Eosinophils # 0.1 10^3/uL (0.0-0.8); Eosinophils % 0.8 %; Hematocrit 54.9 % (37-53); Lymphocytes # 2.1 10^3/uL (0.8-4.8); Lymphocytes % 12.2 %; Mean Corpuscular HGB Conc 33.7 g/dL (30-55); Mean Corpuscular Hemoglobin 32.5 pg (27-33); Mean Corpuscular Volume 96.3 fl (82-101); Mean Platelet Volume 9.6 fL (7.4-10.4); Monocytes # 0.9 10^3/uL (0.2-0.9); Monocytes % 5.4 %; Neutrophils # 13.64 10^3/uL (1.8-7.7); Neutrophils % 80.8 %; Nucleated Red Blood Cells % 0 %; Platelet Count 305 10^3/cmm (157-399); Red Cell Distribution Width 14.5 % (12.1-15.1)
[2024-03-02 19:11] LABS: Troponin(5th) Baseline < 6 ng/L (0-15)
[2024-03-02 19:26] LABS: Alanine Aminotransferase 18 U/L (0-41); Albumin Level 2.2 g/dL (3.5-5.2); Alkaline Phosphatase 66 U/L (40-130); Aspartate Amino Transferase 25 U/L (0-40); Blood Urea Nitrogen 6 mg/dL (6-20); Calcium 7.8 mg/dL (8.5-10.5); Carbon Dioxide 24 mmol/L (22-29); Chloride 110 mmol/L (98-107); Creatinine Clr Calc Pharmacy 203.0139; Globulin 2.1 g/dL (1.3-4.6); Glomerular Filtration Rate 179.8 mL/min (90-130); Glucose 94 mg/dL (65-115); Osmolality Calculated 287 mOsm/kg (285-295); Sodium 140 mmol/L (136-145); Total Bilirubin 0.2 mg/dL (0.15-1.2); Total Protein 4.3 g/dL (6.6-8.7)
[2024-03-02 19:37] LABS: Anion Gap 10.1 (5-19); Potassium 4.1 mmol/L (3.5-5.1)
[2024-03-02] MEDS: ondansetron 2 mg/ML SDV 2 mL 4 MG IVP (20:54)
[2024-03-02] MEDS: morphine 4 mg/mL SDV 1 mL IVP (20:54)
--- NOTE | 2024-03-02 21:03 | ECG_ITS ---
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 Measurements Intervals [place] Rate: 82 P: 31 ME: 141 QRS: -13 QRSD: 99 T: 26 QT: 360 QTc: 421 Interpretive Statements SINUS RHYTHM Compared to ECG 03/02/2024 17:11:17 Left-axis deviation no longer present Electronically Signed On 03-03-2024 21:46:13 CDT by Makayla Flores M.D. [id number]
[2024-03-02 21:13] LABS: Troponin 5 2HR Delta 0.00001 ABS# (0-10)
[2024-03-02 21:34] LABS: Adenovirus Not Detected (NOT DETECT); Chlamydia Pneumoniae Not Detected (NOT DETECT); Coronavirus 229E,HKU1,NL63,OC4 Not Detected (NOT DETECT); Human Metapneumovirus Not Detected (NOT DETECT); Human Rhinovirus/Enterovirus Detected (NOT DETECT); Influenza A Not Detected (NOT DETECT); Influenza A H1 Not Detected (NOT DETECT); Influenza A H1-2009 Not Detected (NOT DETECT); Influenza A H3 Not Detected (NOT DETECT); Influenza B Not Detected (NOT DETECT); Mycoplasma Pneumoniae Not Detected (NOT DETECT); Parainfluenza Virus Type 1 Not Detected (NOT DETECT); Parainfluenza Virus Type 2 Not Detected (NOT DETECT); Parainfluenza Virus Type 3 Not Detected (NOT DETECT); Parainfluenza Virus Type 4 Not Detected (NOT DETECT); Respiratory Syncytial Virus A Not Detected (NOT DETECT); Respiratory Syncytial Virus B Not Detected (NOT DETECT); SARS-COV-2 Not Detected (NOT DETECT)
== END 2024-03-02 22:18 | disposition short-term general hospital (02) ==
PROVIDERS: Emergency Provider Emergency Medicine; PCP Family Medicine
DX: I70.208 Unspecified atherosclerosis of native arteries of extremities, other extremity (principal); D68.9 Coagulation defect, unspecified; N03.2 Chronic nephritic syndrome with diffuse membranous glomerulonephritis; F17.210 Nicotine dependence, cigarettes, uncomplicated; I10 Essential (primary) hypertension; N18.9 Chronic kidney disease, unspecified; Z79.01 Long term (current) use of anticoagulants
CPT/HCPCS: 71045; 80053; 84484; 85025; 86140; 87486; 87581; 87633; 93005; 93931; 96374; 96375; 99285; J2270; J2405

== ENCOUNTER → 2024-03-12 09:33 | Outpatient (BNVA) | payer BC, SELFPAY | PROVIDERS: PCP Family Medicine; Visit Provider Family Medicine | DX: I70.208 Unspecified atherosclerosis of native arteries of extremities, other extremity (principal) | CPT/HCPCS: 80048 ==

== ENCOUNTER 2024-04-30 06:43 | Outpatient (CLI) | payer BC, SELFPAY ==
[2024-04-30 07:34] LABS: Basophils # 0.1 10^3/uL (0.0-0.1); Basophils % 0.9 %; Eosinophils # 0.2 10^3/uL (0.0-0.8); Eosinophils % 2.3 %; Hematocrit 50.6 % (37-53); Lymphocytes # 2.9 10^3/uL (0.8-4.8); Lymphocytes % 38.3 %; Mean Corpuscular HGB Conc 33.4 g/dL (30-55); Mean Corpuscular Hemoglobin 32.2 pg (27-33); Mean Corpuscular Volume 96.4 fl (82-101); Mean Platelet Volume 9.6 fL (7.4-10.4); Monocytes # 0.8 10^3/uL (0.2-0.9); Monocytes % 10.8 %; Neutrophils # 3.62 10^3/uL (1.8-7.7); Neutrophils % 47.3 %; Nucleated Red Blood Cells % 0 %; Platelet Count 261 10^3/cmm (157-399); Red Blood Count 5.25 10^6/uL (3.85-5.65); White Blood Count 7.66 10^3/uL (3.29-11.43)
[2024-04-30 07:54] LABS: D Dimer <= 0.27 ug/mLFEU (0-0.59)
[2024-04-30 07:59] LABS: Alanine Aminotransferase 16 U/L (0-41); Albumin Level 2.8 g/dL (3.5-5.2); Alkaline Phosphatase 63 U/L (40-130); Anion Gap 12.3 (5-19); Aspartate Amino Transferase 18 U/L (0-40); Blood Urea Nitrogen 13 mg/dL (6-20); Calcium 9.1 mg/dL (8.5-10.5); Carbon Dioxide 26 mmol/L (22-29); Chloride 106 mmol/L (98-107); Globulin 2.6 g/dL (1.3-4.6); Glucose 111 mg/dL (65-115); Osmolality Calculated 291 mOsm/kg (285-295); Potassium 4.3 mmol/L (3.5-5.1); Sodium 140 mmol/L (136-145); Total Bilirubin 0.2 mg/dL (0.15-1.2); Total Protein 5.4 g/dL (6.6-8.7)
== END 2024-04-30 06:44 | disposition home or self-care (01) ==
PROVIDERS: PCP Family Medicine; Visit Provider Internal Medicine Medical Oncology
DX: I26.99 Other pulmonary embolism without acute cor pulmonale (principal)
CPT/HCPCS: 36415; 80053; 85025; 85378

== ENCOUNTER 2024-05-05 07:36 | Oncology outpatient (recurring) (ONCR) | payer BC, SELFPAY | END 2024-05-10 23:59 | disposition home or self-care (01) | LOC: ONCMED 07:37 | PROVIDERS: PCP Family Medicine; Visit Provider Internal Medicine Medical Oncology | DX: I26.99 Other pulmonary embolism without acute cor pulmonale (principal); N00-N99 Diseases of the genitourinary system ==

== ENCOUNTER 2024-07-14 07:08 | Outpatient (CLI) | payer BC, SELFPAY ==
[2024-07-14 07:33] LABS: Charge for UA Resulting for Rev
[2024-07-14 07:41] LABS: Bilirubin Urine Negative (Negative); Blood Urine 1+ (Negative); Glucose Urine UA Negative (Normal); Ketones Urine Negative (Negative); Leukocyte Esterase Urine Negative (Negative); Nitrate Urine Negative (Negative); Specific Gravity, Urine 1.017 (1.005-1.030); Urine Appearance Clear (CLEAR); Urine Color Yellow (Yellow)
[2024-07-14 07:51] LABS: Basophils # 0.1 10^3/uL (0.0-0.1); Basophils % 0.9 %; Eosinophils # 0.2 10^3/uL (0.0-0.8); Eosinophils % 2.1 %; Hematocrit 51.3 % (37-53); Lymphocytes # 3.5 10^3/uL (0.8-4.8); Mean Corpuscular HGB Conc 33.1 g/dL (30-55); Mean Corpuscular Hemoglobin 32.8 pg (27-33); Mean Corpuscular Volume 98.8 fl (82-101); Mean Platelet Volume 10.4 fL (7.4-10.4); Monocytes # 0.9 10^3/uL (0.2-0.9); Neutrophils # 4.84 10^3/uL (1.8-7.7); Neutrophils % 50.7 %; Nucleated Red Blood Cells % 0 %; Platelet Count 293 10^3/cmm (157-399); Red Blood Count 5.19 10^6/uL (3.85-5.65); Red Cell Distribution Width 13.5 % (12.1-15.1); White Blood Count 9.56 10^3/uL (3.29-11.43)
[2024-07-14 08:00] LABS: Albumin Level 3.6 g/dL (3.5-5.2); Anion Gap 14.3 (5-19); Blood Urea Nitrogen 14 mg/dL (6-20); Calcium 8.7 mg/dL (8.5-10.5); Carbon Dioxide 25 mmol/L (22-29); Chloride 103 mmol/L (98-107); Glomerular Filtration Rate 72.4 mL/min (90-130); Glucose 105 mg/dL (65-115); Potassium 4.3 mmol/L (3.5-5.1); Sodium 138 mmol/L (136-145)
[2024-07-14 08:02] LABS: Urine Creatinine 191 mg/dL (39-259)
[2024-07-14 08:27] LABS: Protein Urine 3+ (Negative)
[2024-07-14 08:29] LABS: UA Manual Slide Review YES; UA Slide Review UA Slide Review Perf
[2024-07-14 08:30] LABS: Bacteria Urine TRACE /hpf; Mucus Urine TRACE /hpf; RBC Urine 0-4 /hpf (0-2); Squamous Epithelial Cell Urine 0-4 /hpf (0-5); WBC Urine 0-4 /hpf (0-5)
[2024-07-14 08:31] LABS: Add Urine Culture? No; Amorphous Sediment Urine 1+ /hpf; Fine Granular Casts Urine 0-4 /lpf; Hyaline Casts Urine 0-4 /lpf
[2024-07-14 09:02] LABS: UPRO/UCREAT Ratio 3.26 mg/mg CR; Urine Protein Random 623 mg/dL
== END 2024-07-14 07:09 | disposition home or self-care (01) ==
PROVIDERS: PCP Family Medicine; Visit Provider Registered Nurse
DX: N07 Hereditary nephropathy, not elsewhere classified (principal); R80.1 Persistent proteinuria, unspecified
CPT/HCPCS: 36415; 80069; 80197; 81003; 81015; 82570; 84156; 85025

== ENCOUNTER 2024-08-11 07:20 | Outpatient (CLI) | payer BC, SELFPAY ==
[2024-08-11 08:15] LABS: Basophils # 0.1 10^3/uL (0.0-0.1); Basophils % 0.7 %; Eosinophils # 0.2 10^3/uL (0.0-0.8); Eosinophils % 1.8 %; Hematocrit 46.1 % (37-53); Lymphocytes # 4.7 10^3/uL (0.8-4.8); Lymphocytes % 42.1 %; Mean Corpuscular HGB Conc 34.1 g/dL (30-55); Mean Corpuscular Hemoglobin 32.5 pg (27-33); Mean Corpuscular Volume 95.4 fl (82-101); Mean Platelet Volume 10.2 fL (7.4-10.4); Monocytes # 0.9 10^3/uL (0.2-0.9); Monocytes % 7.9 %; Neutrophils # 5.24 10^3/uL (1.8-7.7); Neutrophils % 46.8 %; Nucleated Red Blood Cells % 0 %; Platelet Count 320 10^3/cmm (157-399); Red Blood Count 4.83 10^6/uL (3.85-5.65); Red Cell Distribution Width 13.2 % (12.1-15.1); White Blood Count 11.21 10^3/uL (3.29-11.43)
[2024-08-11 08:36] LABS: Bilirubin Urine Negative (Negative); Blood Urine Trace (Negative); Glucose Urine UA Negative (Normal); Ketones Urine Negative (Negative); Leukocyte Esterase Urine Negative (Negative); Nitrate Urine Negative (Negative); Protein Urine 4+ (Negative); Specific Gravity, Urine 1.024 (1.005-1.030); Urine Appearance Clear (CLEAR); Urine Color Yellow (Yellow); pH Urine 5.5 (5-7)
[2024-08-11 08:39] LABS: Add Urine Microscopic? YES
[2024-08-11 08:48] LABS: Albumin Level 3.4 g/dL (3.5-5.2); Anion Gap 14.1 (5-19); Blood Urea Nitrogen 10 mg/dL (6-20); Calcium 8.8 mg/dL (8.5-10.5); Carbon Dioxide 27 mmol/L (22-29); Chloride 103 mmol/L (98-107); Glomerular Filtration Rate 80.8 mL/min (90-130); Glucose 100 mg/dL (65-115); Phosphorus 5.1 mg/dL (2.5-4.5); Potassium 4.1 mmol/L (3.5-5.1); Sodium 140 mmol/L (136-145)
[2024-08-11 08:53] LABS: Urine Creatinine 215 mg/dL (39-259)
[2024-08-11 09:01] LABS: UA Slide Review UA Slide Review Perf
[2024-08-11 09:03] LABS: UA Manual Slide Review YES
[2024-08-11 09:04] LABS: Add Urine Culture? No; Coarse Granular Casts Urine 0-4 /lpf; Mucus Urine TRACE /hpf; Squamous Epithelial Cell Urine 0-4 /hpf (0-5); WBC Urine 0-4 /hpf (0-5)
[2024-08-11 09:40] LABS: UPRO/UCREAT Ratio 0.09 mg/mg CR; Urine Protein Random > 20 mg/dL
== END 2024-08-11 07:21 | disposition home or self-care (01) ==
PROVIDERS: PCP Family Medicine; Visit Provider Registered Nurse
DX: N04.21 Primary membranous nephropathy with nephrotic syndrome (principal); N04.20 Nephrotic syndrome with diffuse membranous glomerulonephritis, unspecified; N18.2 Chronic kidney disease, stage 2 (mild); N07 Hereditary nephropathy, not elsewhere classified; R80.1 Persistent proteinuria, unspecified
CPT/HCPCS: 36415; 80069; 80197; 81001; 82570; 84156; 85025

== ENCOUNTER 2024-11-17 07:10 | Oncology outpatient (recurring) (ONCR) | payer BC, SELFPAY ==
[2024-11-17 07:33] LABS: Basophils # 0.1 10^3/uL (0.0-0.1); Basophils % 0.7 %; Eosinophils # 0.3 10^3/uL (0.0-0.8); Eosinophils % 2.4 %; Hematocrit 40.4 % (37-53); Lymphocytes # 4.7 10^3/uL (0.8-4.8); Lymphocytes % 45.3 %; Mean Corpuscular HGB Conc 33.2 g/dL (30-55); Mean Corpuscular Hemoglobin 32.8 pg (27-33); Mean Platelet Volume 9.8 fL (7.4-10.4); Monocytes # 0.8 10^3/uL (0.2-0.9); Monocytes % 7.7 %; Neutrophils % 43.7 %; Nucleated Red Blood Cells % 0 %; Platelet Count 274 10^3/cmm (157-399); Red Blood Count 4.08 10^6/uL (3.85-5.65); Red Cell Distribution Width 13.1 % (12.1-15.1); White Blood Count 10.29 10^3/uL (3.29-11.43)
[2024-11-17 07:54] LABS: Alanine Aminotransferase 18 U/L (0-41); Albumin Level 3.5 g/dL (3.5-5.2); Alkaline Phosphatase 66 U/L (40-130); Anion Gap 13.5 (5-19); Aspartate Amino Transferase 24 U/L (0-40); Blood Urea Nitrogen 12 mg/dL (6-20); Calcium 8.4 mg/dL (8.5-10.5); Carbon Dioxide 28 mmol/L (22-29); Chloride 105 mmol/L (98-107); Creatinine Clr Calc Pharmacy 124.0676; Globulin 2.6 g/dL (1.3-4.6); Glomerular Filtration Rate 104.1 mL/min (90-130); Glucose 108 mg/dL (65-115); Osmolality Calculated 294 mOsm/kg (285-295); Potassium 4.5 mmol/L (3.5-5.1); Sodium 142 mmol/L (136-145); Total Bilirubin 0.2 mg/dL (0.15-1.2); Total Protein 6.1 g/dL (6.6-8.7)
[2024-11-17 07:56] LABS: D Dimer <= 0.27 ug/mLFEU (0-0.59)
== END 2024-12-11 23:59 | disposition home or self-care (01) ==
PROVIDERS: Nurse Practitioner Family; PCP Family Medicine; Visit Provider Internal Medicine Medical Oncology
DX: D68.59 Other primary thrombophilia (principal); I26.99 Other pulmonary embolism without acute cor pulmonale
CPT/HCPCS: 36415; 80053; 85025; 85378

== ENCOUNTER 2025-02-15 07:29 | Oncology outpatient (recurring) (ONCR) | payer BC, SELFPAY ==
[2025-02-15 07:55] LABS: Basophils # 0.1 10^3/uL (0.0-0.1); Basophils % 0.7 %; Eosinophils # 0.2 10^3/uL (0.0-0.8); Eosinophils % 1.5 %; Hematocrit 46.3 % (37-53); Lymphocytes # 4.9 10^3/uL (0.8-4.8); Lymphocytes % 31.2 %; Mean Corpuscular HGB Conc 34.1 g/dL (30-55); Mean Corpuscular Hemoglobin 32.7 pg (27-33); Mean Corpuscular Volume 95.9 fl (82-101); Mean Platelet Volume 10.2 fL (7.4-10.4); Monocytes % 6.2 %; Neutrophils # 9.35 10^3/uL (1.8-7.7); Neutrophils % 59.9 %; Nucleated Red Blood Cells % 0 %; Platelet Count 295 10^3/cmm (157-399); Red Blood Count 4.83 10^6/uL (3.85-5.65); Red Cell Distribution Width 13.4 % (12.1-15.1); White Blood Count 15.59 10^3/uL (3.29-11.43)
[2025-02-15 08:11] LABS: Alanine Aminotransferase 17 U/L (0-41); Albumin Level 3.4 g/dL (3.5-5.2); Alkaline Phosphatase 59 U/L (40-130); Blood Urea Nitrogen 13 mg/dL (6-20); Calcium 8.7 mg/dL (8.5-10.5); Carbon Dioxide 24 mmol/L (22-29); Chloride 105 mmol/L (98-107); Creatinine Clr Calc Pharmacy 114.2303; Globulin 2.8 g/dL (1.3-4.6); Glomerular Filtration Rate 90.8 mL/min (90-130); Glucose 110 mg/dL (65-115); Osmolality Calculated 287 mOsm/kg (285-295); Sodium 138 mmol/L (136-145); Total Bilirubin 0.2 mg/dL (0.15-1.2); Total Protein 6.2 g/dL (6.6-8.7)
[2025-02-15 08:18] LABS: D Dimer 0.33 ug/mLFEU (0-0.59)
[2025-02-15 08:28] LABS: Anion Gap 12.9 (5-19); Potassium 3.9 mmol/L (3.5-5.1)
[2025-02-15 08:30] LABS: Aspartate Amino Transferase 25 U/L (0-40)
== END 2025-03-10 23:59 | disposition home or self-care (01) ==
PROVIDERS: Nurse Practitioner Family; PCP Family Medicine; Visit Provider Internal Medicine Medical Oncology
DX: I26.99 Other pulmonary embolism without acute cor pulmonale (principal)
CPT/HCPCS: 36415; 80053; 85025; 85378

== ENCOUNTER 2025-02-19 07:12 | Outpatient (CLI) | payer BC, SELFPAY ==
[2025-02-19 07:54] LABS: Basophils # 0.1 10^3/uL (0.0-0.1); Basophils % 0.8 %; Eosinophils # 0.2 10^3/uL (0.0-0.8); Eosinophils % 1.7 %; Hematocrit 46.1 % (37-53); Lymphocytes # 4.5 10^3/uL (0.8-4.8); Mean Corpuscular HGB Conc 34.3 g/dL (30-55); Mean Corpuscular Hemoglobin 32.4 pg (27-33); Mean Corpuscular Volume 94.7 fl (82-101); Monocytes # 0.8 10^3/uL (0.2-0.9); Monocytes % 7.3 %; Neutrophils # 5.08 10^3/uL (1.8-7.7); Neutrophils % 47.6 %; Nucleated Red Blood Cells % 0 %; Platelet Count 287 10^3/cmm (157-399); Red Blood Count 4.87 10^6/uL (3.85-5.65); Red Cell Distribution Width 13.2 % (12.1-15.1); White Blood Count 10.68 10^3/uL (3.29-11.43)
[2025-02-19 08:12] LABS: Creatinine Urine, Random 387 mg/dL (39-259)
[2025-02-19 08:25] LABS: Alanine Aminotransferase 19 U/L (0-41); Albumin Level 3.6 g/dL (3.5-5.2); Alkaline Phosphatase 58 U/L (40-130); Anion Gap 14.7 (5-19); Aspartate Amino Transferase 19 U/L (0-40); Blood Urea Nitrogen 11 mg/dL (6-20); Calcium 9.3 mg/dL (8.5-10.5); Calcium 9.6 mg/dL (8.5-10.5); Carbon Dioxide 26 mmol/L (22-29); Chloride 103 mmol/L (98-107); Globulin 2.9 g/dL (1.3-4.6); Glomerular Filtration Rate 104.1 mL/min (90-130); Glucose 95 mg/dL (65-115); Osmolality Calculated 289 mOsm/kg (285-295); Potassium 3.7 mmol/L (3.5-5.1); Sodium 140 mmol/L (136-145); Total Bilirubin 0.2 mg/dL (0.15-1.2); Total Protein 6.5 g/dL (6.6-8.7)
[2025-02-19 08:32] LABS: Parathyroid Hormone 21.9 pg/mL (15-65)
[2025-02-19 08:33] LABS: Microalbum Creatinine Ratio Ur 2178 mg/dL (0-20); Microalbumin Random Urine > 843 ug/dL (0-20)
[2025-02-19 08:38] LABS: Phosphorus 4.1 mg/dL (2.5-4.5)
== END 2025-02-19 07:13 | disposition home or self-care (01) ==
PROVIDERS: Internal Medicine Medical Oncology; PCP Family Medicine; Visit Provider Registered Nurse
DX: N07 Hereditary nephropathy, not elsewhere classified (principal); D68.59 Other primary thrombophilia; N04.20 Nephrotic syndrome with diffuse membranous glomerulonephritis, unspecified
CPT/HCPCS: 36415; 80053; 82044; 82310; 83970; 84100; 85025

== ENCOUNTER 2025-02-26 13:04 | Outpatient (CLI) | payer BC, SELFPAY ==
[2025-03-01 09:45] LABS: Tacrolimus, Highly Sensitive 5.3 mcg/L
== END 2025-02-26 13:05 | disposition home or self-care (01) ==
PROVIDERS: PCP Family Medicine; Visit Provider Registered Nurse
DX: N04.20 Nephrotic syndrome with diffuse membranous glomerulonephritis, unspecified (principal); N07 Hereditary nephropathy, not elsewhere classified
CPT/HCPCS: 36415; 80197

== ENCOUNTER 2025-05-28 07:25 | Oncology outpatient (recurring) (ONCR) | payer BC, SELFPAY ==
[2025-05-28 07:42] LABS: Hematocrit 42.6 % (37-53); Hemoglobin 14.30 g/dL (11.27-16.99); Mean Corpuscular HGB Conc 33.6 g/dL (30-55); Mean Corpuscular Hemoglobin 32.4 pg (27-33); Mean Corpuscular Volume 96.6 fl (82-101); Nucleated Red Blood Cells % 0 %; Platelet Count 284 10^3/cmm (157-399); Red Blood Count 4.41 10^6/uL (3.85-5.65); White Blood Count 9.04 10^3/uL (3.29-11.43)
[2025-05-28 07:59] LABS: Alanine Aminotransferase 16 U/L (0-41); Albumin Level 3.8 g/dL (3.5-5.2); Alkaline Phosphatase 62 U/L (40-130); Anion Gap 13.0 (5-19); Aspartate Amino Transferase 18 U/L (0-40); Blood Urea Nitrogen 9 mg/dL (6-20); Calcium 8.7 mg/dL (8.5-10.5); Carbon Dioxide 29 mmol/L (22-29); Chloride 99 mmol/L (98-107); Globulin 2.8 g/dL (1.3-4.6); Glucose 74 mg/dL (65-115); Osmolality Calculated 281 mOsm/kg (285-295); Potassium 4.0 mmol/L (3.5-5.1); Sodium 137 mmol/L (136-145); Total Protein 6.6 g/dL (6.6-8.7)
== END 2025-06-10 23:59 | disposition home or self-care (01) ==
PROVIDERS: Nurse Practitioner Family; PCP Family Medicine; Visit Provider Internal Medicine Medical Oncology
DX: D68.59 Other primary thrombophilia (principal)
CPT/HCPCS: 36415; 80053; 85025

== ENCOUNTER 2025-09-27 06:53 | Outpatient (CLI) | payer BC, SELFPAY ==
[2025-09-27 08:18] LABS: Hematocrit 40.4 % (37-53); Hemoglobin 13.60 g/dL (11.27-16.99); Mean Corpuscular HGB Conc 33.7 g/dL (30-55); Mean Corpuscular Hemoglobin 32.9 pg (27-33); Mean Corpuscular Volume 97.6 fl (82-101); Nucleated Red Blood Cells % 0 %; Platelet Count 313 10^3/cmm (157-399); Red Blood Count 4.14 10^6/uL (3.85-5.65); White Blood Count 9.58 10^3/uL (3.29-11.43)
[2025-09-27 08:43] LABS: Creatinine Urine, Random 61 mg/dL (39-259)
[2025-09-27 08:44] LABS: Calcium 9.1 mg/dL (8.5-10.5)
[2025-09-27 08:46] LABS: Alanine Aminotransferase 19 U/L (0-41); Albumin Level 4.1 g/dL (3.5-5.2); Alkaline Phosphatase 54 U/L (40-130); Anion Gap 12.8 (5-19); Aspartate Amino Transferase 18 U/L (0-40); Blood Urea Nitrogen 8 mg/dL (6-20); Calcium 9.3 mg/dL (8.5-10.5); Carbon Dioxide 29 mmol/L (22-29); Chloride 102 mmol/L (98-107); Globulin 2.7 g/dL (1.3-4.6); Glucose 91 mg/dL (65-115); Osmolality Calculated 288 mOsm/kg (285-295); Potassium 3.8 mmol/L (3.5-5.1); Sodium 140 mmol/L (136-145); Total Protein 6.8 g/dL (6.6-8.7)
[2025-09-27 09:14] LABS: Microalbum Creatinine Ratio Ur 2180 mg/dL (0-20)
[2025-09-27 09:25] LABS: Glucose Urine UA Negative (Normal); Nitrate Urine Negative (Negative); Specific Gravity, Urine 1.007 (1.005-1.030)
[2025-09-27 09:28] LABS: Add Urine Microscopic? YES
== END 2025-09-27 06:54 | disposition home or self-care (01) ==
PROVIDERS: Nurse Practitioner Family; PCP Family Medicine; Visit Provider Registered Nurse
DX: N07 Hereditary nephropathy, not elsewhere classified (principal); D68.59 Other primary thrombophilia
CPT/HCPCS: 36415; 80053; 81001; 82044; 82310; 83970; 84100; 85025

== ENCOUNTER 2025-09-30 07:27 | Oncology outpatient (recurring) (ONCR) | payer BC, SELFPAY | END 2025-10-10 23:59 | disposition home or self-care (01) | PROVIDERS: PCP Family Medicine; Visit Provider Internal Medicine Medical Oncology | DX: Z53.9 Procedure and treatment not carried out, unspecified reason (principal) | CPT/HCPCS: 36415 ==